=== PATIENT | female | born 1935 | race Caucasian/White ===

== ENCOUNTER → 2016-07-16 | Outpatient (CLI) | payer OTHER ==
[~2016-07-16] MED LIST: ACET-1311 PO; ASPEC81 PO; ATOR10TA88 PO; BISA10SU7 PR; DIPH25CA37 PO; FRS/40 PO; IMD/2 PO; MAGNSUS5 PO; METO25TA56 PO; NITR0.3D TD; NITR0.4S UT; POTA-327 PO; SODIENE PR
[2016-07-16 09:34] LABS: ESTIMATED AVERAGE GLUCOSE 123 mg/dl; HA1C FLAG Normal (Normal)
== END | disposition home or self-care (01) ==
LOC: C.LABUPHEI 08:31
PROVIDERS: ATTEND Family Medicine
DX: E11.9 Type 2 diabetes mellitus without complications (principal)

== ENCOUNTER → 2016-08-12 | Outpatient (CLI) | payer OTHER ==
[2016-08-12 09:05] LABS: BLOOD UREA NITROGEN 14 mg/dl (7-18); BUN/CREATININE RATIO 20.3 (10-20); CALCIUM 8.6 mg/dl (8.5-10.1); CARBON DIOXIDE 30 mmol/L (21-32); CHLORIDE 102 mmol/L (98-107); CREATININE 0.67 mg/dl (0.60-1.20); GLUCOSE 121 mg/dl (70-99); POTASSIUM 4.4 mmol/L (3.5-5.1); SODIUM 139 mmol/L (136-145)
[2016-08-12 09:14] LABS: HEMATOCRIT 32.9 % (37-47); MEAN CELL VOLUME 85.5 fL (80-100); MEAN CORPUSCULAR HEMOGLOBIN 29.9 pg (25-34); MEAN PLATELET VOLUME 10.2 fL (7.4-10.4); PLATELET COUNT 88 K/uL (130-400); RED BLOOD COUNT 3.85 M/uL (4.2-5.4); WHITE BLOOD COUNT 4.55 K/uL (4.8-10.8)
[2016-08-12 09:20] LABS: COMPLETE YES; EOS % 0.2 %; IG% 0.2 %; LARGE PLATELETS 1+; LYMPH % 19.6 %; LYMPH ABS # 0.89 K/uL (1.2-3.4); MONO % 9.2 %; NEUT % 70.8 %; PLT ESTIMATE DECREASED
--- NOTE | 2016-08-20 08:30 | CODING QUERY NO DIAGNOSIS ---
TREATMENT RENDERED WITHOUT A DIAGNOSIS : 1935 To promote full compliance with coding requirements relating to patient care, physician participation is requested in all cases of tile grader uncertainty. Please assist us with providing a diagnosis/symptom for the test(s) below: A diagnosis/symptom was not documented on your Order. A valid diagnosis/symptom is required to bill all insurances. Please remember that we are unable to code a diagnosis of rule out, probable, possible, questionable, or suspected. DOS: 08/12/16 Tests that require a diagnosis: * CBC WITH AUTO DIFFER DIAGNOSIS: * PARTIAL RENAL PROFILE DIAGNOSIS: Provider Signature: Date: Thank you Margarita Hercules Health Information Management Once completed, please kindly fax back to [phone] For questions please call [phone]
== END ==
LOC: C.LABUPHEI 08:42
PROVIDERS: ATTEND Family Medicine
DX: I10 Essential (primary) hypertension (principal); M62.81 Muscle weakness (generalized)

== ENCOUNTER → 2016-10-28 | Outpatient (CLI) | payer OTHER ==
[~2016-10-28] MED LIST changes: +ATOR10TA82 PO; -ATOR10TA88 PO
[2016-10-28 08:49] LABS: URINE APPEARANCE CLOUDY (CLEAR); URINE BILIRUBIN NEG (NEG); URINE COLOR YELLOW; URINE EPITHELIAL CELL AUTO 0-5 /lpf (0-5); URINE NITRITE NEG (NEG); URINE SPECIFIC GRAVITY 1.007 (1.000-1.030); UROBILINOGEN NEG (NEG)
[2016-10-28 08:58] LABS: MANUAL MICROSCOPIC REQUIRED? NO; REVIEW REQ? NO
== END ==
LOC: C.LABUPHEI 07:51
PROVIDERS: ATTEND Family Medicine
DX: R45.1 Restlessness and agitation (principal)

== ENCOUNTER → 2016-11-03 | Outpatient (CLI) | payer OTHER ==
[2016-11-03 10:40] LABS: URINE APPEARANCE CLOUDY (CLEAR); URINE BILIRUBIN NEG (NEG); URINE COLOR YELLOW; URINE EPITHELIAL CELL AUTO 0-5 /lpf (0-5); URINE NITRITE NEG (NEG); URINE PH 7.5 (4.5-7.5); URINE SPECIFIC GRAVITY 1.007 (1.000-1.030); UROBILINOGEN NEG (NEG); ZZURINE CULT IF INDIC CATH YES
[2016-11-03 10:54] LABS: MANUAL MICROSCOPIC REQUIRED? NO; REVIEW REQ? YES
--- NOTE | 2016-11-10 07:49 | CODING QUERY MEDICAL NECESSITY ---
CQSUPPORTING DIAGNOSIS NEEDED A supporting diagnosis is required for the test/procedure performed on this patient in order for us to be reimbursed by the patient's insurance. Please provide a supporting diagnosis for the following test/procedure listed below next to the test name along with your signature. *If there is no additional diagnosis for this patient that would support the following test/procedure please document that below next to the test/procedure. Test(s)/Procedure(s) that require a supporting diagnosis: DOS 11/03/16 URINE CULTURE QUERY RETURNED WITH DIAGNOSIS BUT NO SIGNATURE NEED DIAGNOSIS AND SIGNATURE THANKS Provider Signature: Date: Thank you Merari Lieberman Health Information Management Once completed, please kindly fax back to [phone] For questions please call [phone]
== END | disposition home or self-care (01) ==
LOC: C.LABUPHEI 09:01
PROVIDERS: ATTEND Family Medicine
DX: R45.1 Restlessness and agitation (principal); R41.82 Altered mental status, unspecified

== ENCOUNTER → 2016-11-10 | Outpatient (CLI) | payer OTHER ==
[2016-11-10 08:47] LABS: COMPLETE YES; HEMATOCRIT 36.7 % (37-47); IG% 0.5 %; LYMPH % 14.3 %; LYMPH ABS # 0.88 K/uL (1.2-3.4); MEAN CELL VOLUME 87.4 fL (80-100); MEAN CORPUSCULAR HEMOGLOBIN 30.2 pg (25-34); MEAN CORPUSCULAR HGB CONC 34.6 g/dl (32-36); MONO % 8.4 %; NEUT % 76.8 %; PLATELET COUNT 103 K/uL (130-400); WHITE BLOOD COUNT 6.17 K/uL (4.8-10.8)
[2016-11-10 08:56] LABS: ALT/SGPT 15 U/L (12-78); BLOOD UREA NITROGEN 16 mg/dl (7-18); BUN/CREATININE RATIO 21.8 (10-20); CARBON DIOXIDE 27 mmol/L (21-32); CHLORIDE 97 mmol/L (98-107); CREATININE 0.71 mg/dl (0.60-1.20); GLUCOSE 152 mg/dl (70-99); POTASSIUM 4.4 mmol/L (3.5-5.1); SODIUM 133 mmol/L (136-145)
[2016-11-10 08:59] LABS: ALKALINE PHOSPHATASE 105 U/L (45-117); AST/SGOT 12 U/L (15-37)
[2016-11-10 09:26] LABS: CALCIUM 9.3 mg/dl (8.5-10.1)
== END ==
LOC: C.LABUPHEI 08:16
PROVIDERS: ATTEND Family Medicine
DX: I10 Essential (primary) hypertension (principal); E55.9 Vitamin D deficiency, unspecified

== ENCOUNTER → 2017-01-14 | Outpatient (CLI) | payer OTHER ==
[~2017-01-14] MED LIST changes: -ATOR10TA82 PO; +ATOR10TA88 PO
[2017-01-14 12:18] LABS: ESTIMATED AVERAGE GLUCOSE 126 mg/dl; HA1C FLAG Normal (Normal)
== END ==
LOC: C.LABUPHEI 09:04
PROVIDERS: ATTEND Family Medicine
DX: E11.9 Type 2 diabetes mellitus without complications (principal)

== ENCOUNTER → 2017-02-22 | Outpatient (CLI) | payer OTHER ==
[2017-02-22 10:57] LABS: URINE APPEARANCE TURBID (CLEAR); URINE BILIRUBIN NEG (NEG); URINE COLOR YELLOW; URINE NITRITE POS (NEG); URINE PH 6.5 (4.5-7.5); URINE SPECIFIC GRAVITY 1.015 (1.000-1.030); UROBILINOGEN NEG (NEG)
[2017-02-22 11:05] LABS: MANUAL MICROSCOPIC REQUIRED? YES; REVIEW REQ? NO
[2017-02-22 11:23] LABS: URINE BACTERIA 4+ (NEG); URINE RBC 0-4 /hpf (0-4); URINE WBC >30 /hpf (0-5)
== END ==
LOC: C.LABUPHEI 09:49
PROVIDERS: ATTEND Nurse Practitioner Family
DX: R41.82 Altered mental status, unspecified (principal)

== ENCOUNTER → 2017-04-16 | Outpatient (CLI) | payer OTHER ==
[2017-04-16 06:50] LABS: CREATININE 0.72 mg/dl (0.60-1.20)
== END | disposition home or self-care (01) ==
LOC: C.LABUPHEI 15:37
PROVIDERS: ATTEND Nurse Practitioner Family
DX: I10 Essential (primary) hypertension (principal)

== ENCOUNTER → 2017-06-06 | Outpatient (CLI) | payer OTHER ==
[~2017-06-06] MED LIST changes: +ATOR10TA82 PO; -ATOR10TA88 PO
[2017-06-06 09:25] LABS: ESTIMATED AVERAGE GLUCOSE 157 mg/dl; HA1C FLAG Normal (Normal)
[2017-06-06 11:31] LABS: HEMATOCRIT 47.6 % (37-47); MEAN CELL VOLUME 96.9 fL (80-100); MEAN CORPUSCULAR HEMOGLOBIN 32.2 pg (25-34); MEAN CORPUSCULAR HGB CONC 33.2 g/dl (32-36); MEAN PLATELET VOLUME 12.3 fL (7.4-10.4); PLATELET COUNT 115 K/uL (130-400); RED BLOOD COUNT 4.91 M/uL (4.2-5.4); WHITE BLOOD COUNT 28.86 K/uL (4.8-10.8)
[2017-06-06 11:33] LABS: COMPLETE YES; LYMPH ABS # 0.26 K/uL (1.2-3.4); LYMPHOCYTE % 0.9 %; NEUTROPHILS % 95.6 %; PLT ESTIMATE DECREASED; VACUOLIZATION 1+
[2017-06-06 22:47] LABS: MANUAL MICROSCOPIC REQUIRED? NO; REVIEW REQ? NO; URINE APPEARANCE CLOUDY (CLEAR); URINE BILIRUBIN NEG (NEG); URINE COLOR DK YELLOW; URINE EPITHELIAL CELL AUTO 0-5 /lpf (0-5); URINE NITRITE POS (NEG); URINE SPECIFIC GRAVITY 1.027 (1.000-1.030); UROBILINOGEN NEG (NEG)
--- NOTE | 2017-06-10 12:42 | CODING QUERY MEDICAL NECESSITY ---
CQSUPPORTING DIAGNOSIS NEEDED A supporting diagnosis is required for the test/procedure performed on this patient in order for us to be reimbursed by the patient's insurance. Please provide a supporting diagnosis for the following test/procedure listed below next to the test name along with your signature. *If there is no additional diagnosis for this patient that would support the following test/procedure please document that below next to the test/procedure. Test(s)/Procedure(s) that require a supporting diagnosis: DOS 06/06/17 URINE CULTURE TESTS Provider Signature: Date: Thank you Merari Lieberman Health Information Management Once completed, please kindly fax back to [phone] For questions please call [phone]
== END ==
LOC: C.LABUPHEI 07:45
PROVIDERS: ATTEND Nurse Practitioner Family
DX: E11.9 Type 2 diabetes mellitus without complications (principal)

== ENCOUNTER → 2017-06-07 | Outpatient (CLI) | payer OTHER ==
[2017-06-07 18:59] LABS: BASO % 0.1 %; BASO ABS # 0.01 K/uL (0-0.2); HEMATOCRIT 47.4 % (37-47); IG% 0.4 %; LYMPH % 5.5 %; LYMPH ABS # 1.09 K/uL (1.2-3.4); MEAN CELL VOLUME 98.3 fL (80-100); MEAN PLATELET VOLUME 12.4 fL (7.4-10.4); MONO % 3.3 %; NEUT % 90.7 %; PLATELET COUNT 136 K/uL (130-400); RED BLOOD COUNT 4.82 M/uL (4.2-5.4); WHITE BLOOD COUNT 19.65 K/uL (4.8-10.8)
[2017-06-07 19:01] LABS: COMPLETE YES; MEAN CORPUSCULAR HGB CONC 32.5 g/dl (32-36)
[2017-06-07 19:32] LABS: BLOOD UREA NITROGEN 93 mg/dl (7-18); BUN/CREATININE RATIO 40.8 (10-20); CREATININE 2.27 mg/dl (0.60-1.20); GLUCOSE 346 mg/dl (70-99); POTASSIUM 3.6 mmol/L (3.5-5.1); SODIUM 163 mmol/L (136-145)
[2017-06-07 19:33] LABS: CALCIUM 9.4 mg/dl (8.5-10.1); CARBON DIOXIDE 27 mmol/L (21-32); CHLORIDE 126 mmol/L (98-107)
[2017-06-07 19:34] LABS: ALB/GLOB RATIO 0.7 (0.9-2); ALKALINE PHOSPHATASE 101 U/L (45-117); ALT/SGPT 40 U/L (12-78); AST/SGOT 15 U/L (15-37)
[2017-06-07 19:50] LABS: BETA-HYDROXYBUTYRATE 1.19 mg/dL (0.2-2.81)
== END ==
LOC: C.LABUPHEI 12:19
PROVIDERS: ATTEND Nurse Practitioner Family
DX: A41.89 Other specified sepsis (principal); D72.829 Elevated white blood cell count, unspecified

== ENCOUNTER → 2017-06-08 | Outpatient (CLI) | payer OTHER ==
[2017-06-08 13:17] LABS: BLOOD UREA NITROGEN 87 mg/dl (7-18); BUN/CREATININE RATIO 43.8 (10-20); CALCIUM 9.1 mg/dl (8.5-10.1); CARBON DIOXIDE 26 mmol/L (21-32); CHLORIDE 130 mmol/L (98-107); CREATININE 1.99 mg/dl (0.60-1.20); GLUCOSE 159 mg/dl (70-99); POTASSIUM 3.3 mmol/L (3.5-5.1); SODIUM 166 mmol/L (136-145)
[2017-06-08 13:26] LABS: HEMATOCRIT 43.4 % (37-47); MEAN CELL VOLUME 98.2 fL (80-100); MEAN CORPUSCULAR HEMOGLOBIN 31.2 pg (25-34); MEAN CORPUSCULAR HGB CONC 31.8 g/dl (32-36); MEAN PLATELET VOLUME 12.4 fL (7.4-10.4); PLATELET COUNT 108 K/uL (130-400); RED BLOOD COUNT 4.42 M/uL (4.2-5.4); WHITE BLOOD COUNT 17.08 K/uL (4.8-10.8)
[2017-06-08 13:28] LABS: BASO % 0.1 %; BASO ABS # 0.02 K/uL (0-0.2); COMPLETE YES; IG% 0.6 %; LYMPH % 6.5 %; LYMPH ABS # 1.11 K/uL (1.2-3.4); MONO % 3.7 %; NEUT % 89.1 %; PLT ESTIMATE DECREASED
--- NOTE | 2017-06-09 13:12 | CODING QUERY NO DIAGNOSIS ---
TREATMENT RENDERED WITHOUT A DIAGNOSIS To promote full compliance with coding requirements relating to patient care, physician participation is requested in all cases of cod clerk uncertainty. Please assist us with providing a diagnosis/symptom for the test(s) below: A diagnosis/symptom was not documented on your Order. A valid diagnosis/symptom is required to bill all insurances. Please remember that we are unable to code a diagnosis of rule out, probable, possible, questionable, or suspected. DATE OF SERVICE: 06/08/17 Tests that require a diagnosis: * CBC W/ AUTO DIFF DIAGNOSIS: * PARTIAL RENAL PROFILE DIAGNOSIS: Provider Signature: Date: Thank you Celeste Franco [facility] Information Management Once completed, please kindly fax back to [phone] For questions please call [phone]
== END ==
LOC: C.LABUPHEI 12:40
PROVIDERS: ATTEND Nurse Practitioner Family
DX: Z01.89 Encounter for other specified special examinations (principal)

== ENCOUNTER → 2017-06-09 | Outpatient (CLI) | payer OTHER ==
[2017-06-09 09:01] LABS: COMPLETE YES; EOS % 0.1 %; HEMATOCRIT 40.2 % (37-47); IG% 0.4 %; LYMPH % 7.1 %; LYMPH ABS # 0.74 K/uL (1.2-3.4); MEAN CORPUSCULAR HEMOGLOBIN 31.7 pg (25-34); MEAN CORPUSCULAR HGB CONC 32.3 g/dl (32-36); MEAN PLATELET VOLUME 12.4 fL (7.4-10.4); NEUT % 88.4 %; PLATELET COUNT 91 K/uL (130-400); PLT ESTIMATE DECREASED; WHITE BLOOD COUNT 10.39 K/uL (4.8-10.8)
[2017-06-09 09:10] LABS: BLOOD UREA NITROGEN 81 mg/dl (7-18); BUN/CREATININE RATIO 46.5 (10-20); CALCIUM 8.9 mg/dl (8.5-10.1); CARBON DIOXIDE 28 mmol/L (21-32); CHLORIDE 128 mmol/L (98-107); CREATININE 1.73 mg/dl (0.60-1.20); GLUCOSE 218 mg/dl (70-99); POTASSIUM 2.9 mmol/L (3.5-5.1); SODIUM 166 mmol/L (136-145)
== END | disposition home or self-care (01) ==
LOC: C.LABUPHEI 08:27
PROVIDERS: ATTEND Nurse Practitioner Family
DX: A41.9 Sepsis, unspecified organism (principal)

== ENCOUNTER → 2017-06-10 | Outpatient (CLI) | payer OTHER ==
[2017-06-10 19:39] LABS: BLOOD UREA NITROGEN 43 mg/dl (7-18); BUN/CREATININE RATIO 32.4 (10-20); CALCIUM 8.4 mg/dl (8.5-10.1); CARBON DIOXIDE 28 mmol/L (21-32); CHLORIDE 120 mmol/L (98-107); CREATININE 1.32 mg/dl (0.60-1.20); GLUCOSE 260 mg/dl (70-99); POTASSIUM 2.5 mmol/L (3.5-5.1)
[2017-06-10 20:15] LABS: SODIUM 155 mmol/L (136-145)
== END ==
LOC: C.LABUPHEI 17:27
PROVIDERS: ATTEND Nurse Practitioner Family
DX: L08.9 Local infection of the skin and subcutaneous tissue, unspecified (principal)

== ENCOUNTER → 2017-06-14 | Outpatient (CLI) | payer OTHER ==
[2017-06-14 09:10] LABS: HEMATOCRIT 33.7 % (37-47); MEAN CELL VOLUME 94.1 fL (80-100); MEAN CORPUSCULAR HEMOGLOBIN 30.7 pg (25-34); MEAN CORPUSCULAR HGB CONC 32.6 g/dl (32-36); MEAN PLATELET VOLUME 12.3 fL (7.4-10.4); PLATELET COUNT 71 K/uL (130-400); RED CELL DISTRIBUTION WIDTH CV 14.4 % (11.5-14.5); RED CELL DISTRIBUTION WIDTH SD 49.1 fL (36.4-46.3); WHITE BLOOD COUNT 11.55 K/uL (4.8-10.8)
[2017-06-14 09:17] LABS: BLOOD UREA NITROGEN 18 mg/dl (7-18); CALCIUM 8.1 mg/dl (8.5-10.1); CARBON DIOXIDE 24 mmol/L (21-32); GLUCOSE 127 mg/dl (70-99); POTASSIUM 3.3 mmol/L (3.5-5.1); SODIUM 160 mmol/L (136-145)
[2017-06-14 09:45] LABS: BASO % 0.1 %; BASO ABS # 0.01 K/uL (0-0.2); IG# 0.07 K/uL (0.00-0.02); LYMPH ABS # 0.69 K/uL (1.2-3.4); MONO % 3.4 %; MONO ABS # 0.39 K/uL (0.11-0.59); NEUT % 89.9 %; NEUT ABS # 10.39 K/uL (1.4-6.5)
--- NOTE | 2017-06-16 11:18 | CODING QUERY NO DIAGNOSIS ---
: 1935 TREATMENT RENDERED WITHOUT A DIAGNOSIS To promote full compliance with coding requirements relating to patient care, physician participation is requested in all cases of death surveys coder uncertainty. Please assist us with providing a diagnosis/symptom for the test(s) below: A diagnosis/symptom was not documented on your Order. A valid diagnosis/symptom is required to bill all insurances. Please remember that we are unable to code a diagnosis of rule out, probable, possible, questionable, or suspected. Tests that require a diagnosis: DOS: 06/14/17 * CBC WITH AUTO DIFFERENTIAL DIAGNOSIS: * PARTIAL RENAL PROFILE DIAGNOSIS: Provider Signature: Date: Thank you Dana Mahoney Health Information Management Once completed, please kindly fax back to [phone] For questions please call [phone]
== END ==
LOC: C.LABUPHEI 08:23
PROVIDERS: ATTEND Family Medicine
DX: Z01.89 Encounter for other specified special examinations (principal)

== ENCOUNTER → 2017-06-15 | Outpatient (CLI) | payer OTHER ==
[2017-06-15 09:16] LABS: HEMATOCRIT 31.3 % (37-47); MEAN CELL VOLUME 95.1 fL (80-100); MEAN CORPUSCULAR HEMOGLOBIN 31.3 pg (25-34); MEAN CORPUSCULAR HGB CONC 32.9 g/dl (32-36); RED BLOOD COUNT 3.29 M/uL (4.2-5.4); WHITE BLOOD COUNT 7.34 K/uL (4.8-10.8)
[2017-06-15 09:18] LABS: MEAN PLATELET VOLUME 11.9 fL (7.4-10.4); PLATELET COUNT 69 K/uL (130-400)
[2017-06-15 09:24] LABS: COMPLETE YES; LYMPH % 9.7 %; LYMPH ABS # 0.71 K/uL (1.2-3.4); NEUT % 85.3 %
[2017-06-15 09:42] LABS: BLOOD UREA NITROGEN 14 mg/dl (7-18); BUN/CREATININE RATIO 17.2 (10-20); CALCIUM 7.7 mg/dl (8.5-10.1); CARBON DIOXIDE 25 mmol/L (21-32); CHLORIDE 123 mmol/L (98-107); GLUCOSE 212 mg/dl (70-99); POTASSIUM 3.3 mmol/L (3.5-5.1); SODIUM 153 mmol/L (136-145)
== END ==
LOC: C.LABUPHEI 09:00
PROVIDERS: ATTEND Nurse Practitioner Family
DX: E78.5 Hyperlipidemia, unspecified (principal); I10 Essential (primary) hypertension

== ENCOUNTER → 2017-06-22 | Outpatient (CLI) | payer OTHER | LOC: C.LABUPHEI 07:54 | PROVIDERS: ATTEND Nurse Practitioner Family | DX: E87.0 Hyperosmolality and hypernatremia (principal) ==

== ENCOUNTER → 2017-07-14 | Outpatient (CLI) | payer OTHER | END | disposition home or self-care (01) | LOC: C.LABUPHEI 08:34 | PROVIDERS: ATTEND Nurse Practitioner Family | DX: I25.10 Atherosclerotic heart disease of native coronary artery without angina pectoris (principal) ==

== ENCOUNTER → 2017-07-19 | Outpatient (CLI) | payer OTHER ==
[2017-07-19 09:10] LABS: HEMOGLOBIN A1C 5.5 % (4.5-5.6)
== END ==
LOC: C.LABUPHEI 08:43
PROVIDERS: ATTEND Nurse Practitioner Family
DX: E11.9 Type 2 diabetes mellitus without complications (principal)

== ENCOUNTER → 2017-07-26 | Outpatient (CLI) | payer OTHER | LOC: C.LABUPHEI 08:03 | PROVIDERS: ATTEND Nurse Practitioner Family | DX: R45.1 Restlessness and agitation (principal) ==

== ENCOUNTER → 2017-08-17 | Outpatient (CLI) | payer OTHER | LOC: C.LABUPHEI 09:18 | PROVIDERS: ATTEND Nurse Practitioner Family | DX: E78.5 Hyperlipidemia, unspecified (principal) ==

== ENCOUNTER → 2017-10-21 | Outpatient (CLI) | payer OTHER ==
[2017-10-21 09:10] LABS: CREATININE 0.78 mg/dl (0.60-1.20)
== END ==
LOC: C.LABUPHEI 08:34
PROVIDERS: ATTEND Nurse Practitioner Family
DX: E11.9 Type 2 diabetes mellitus without complications (principal); I10 Essential (primary) hypertension

== ENCOUNTER → 2017-11-11 | Outpatient (CLI) | payer OTHER | LOC: C.LABUPHEI 08:47 | PROVIDERS: ATTEND Nurse Practitioner Family | DX: E55.9 Vitamin D deficiency, unspecified (principal) ==

== ENCOUNTER → 2017-11-23 | Outpatient (CLI) | payer OTHER ==
--- NOTE | 2017-11-25 11:22 | CODING QUERY NO DIAGNOSIS ---
TREATMENT RENDERED WITHOUT A DIAGNOSIS [birth year] To promote full compliance with coding requirements relating to patient care, physician participation is requested in all cases of medical billing coder uncertainty. Please assist us with providing a diagnosis/symptom for the test(s) below: A diagnosis/symptom was not documented on your Order. A valid diagnosis/symptom is required to bill all insurances. Please remember that we are unable to code a diagnosis of rule out, probable, possible, questionable, or suspected. DOS 11/23/17 Tests that require a diagnosis: * UA CLEAN CATCH DIAGNOSIS: * URINE CULTURE DIAGNOSIS: Provider Signature: Date: Thank you Anabella English Health Information Management Once completed, please kindly fax back to [phone] For questions please call [phone]
== END | disposition home or self-care (01) ==
LOC: C.LABUPHEI 08:23
PROVIDERS: ATTEND Nurse Practitioner Family
DX: N39.0 Urinary tract infection, site not specified (principal)

== ENCOUNTER → 2017-11-26 | Outpatient (CLI) | payer OTHER ==
[2017-11-26 08:44] LABS: HEMATOCRIT 32.2 % (37-47); HEMOGLOBIN 11.2 g/dL (12.0-16.0); MEAN CELL VOLUME 87.5 fL (80-100); MEAN CORPUSCULAR HEMOGLOBIN 30.4 pg (25-34); MEAN CORPUSCULAR HGB CONC 34.8 g/dl (32-36); MEAN PLATELET VOLUME 10.3 fL (7.4-10.4); PLATELET COUNT 88 K/uL (130-400); RED CELL DISTRIBUTION WIDTH CV 14.4 % (11.5-14.5); WHITE BLOOD COUNT 3.64 K/uL (4.8-10.8)
[2017-11-26 08:53] LABS: ALBUMIN 3.5 gm/dl (3.4-5.0); ALKALINE PHOSPHATASE 77 U/L (45-117); ALT/SGPT 15 U/L (12-78); AST/SGOT 16 U/L (15-37); BLOOD UREA NITROGEN 15 mg/dl (7-18); CALCIUM 8.6 mg/dl (8.5-10.1); CARBON DIOXIDE 28 mmol/L (21-32); CREATININE 0.63 mg/dl (0.60-1.20); GLUCOSE 106 mg/dl (70-99); SODIUM 137 mmol/L (136-145); TOTAL PROTEIN 6.7 gm/dl (6.4-8.2)
[2017-11-26 09:05] LABS: IG# 0.02 K/uL (0.00-0.02); LYMPH % 22.3 %; LYMPH ABS # 0.81 K/uL (1.2-3.4); MONO % 6.9 %; MONO ABS # 0.25 K/uL (0.11-0.59); NEUT % 70.3 %; NEUT ABS # 2.56 K/uL (1.4-6.5)
== END | disposition home or self-care (01) ==
LOC: C.LABUPHEI 09:16
PROVIDERS: ATTEND Nurse Practitioner Family
DX: I10 Essential (primary) hypertension (principal)

== ENCOUNTER 2019-06-07 08:32 | Inpatient (IN) ==
[2019-06-07] MEDS ORDERED: MoRPHine SULFATE 4 MG/ML 1 ML CARP\\VIAL IV STA (08:53)
[2019-06-07] MEDS ORDERED: SODIUM CHLORIDE 0.9% 500 ML IV SCH ×2 (09:00→12:13)
[2019-06-07 09:37] LABS: Alanine Aminotransferase 16 U/L (12-78); Albumin Level 3.4 gm/dl (3.4-5.0); Aspartate Aminotransferase 14 U/L (15-37); Blood Urea Nitrogen 18 mg/dl (7-18); Calcium 8.9 mg/dl (8.5-10.1); Carbon Dioxide 27 mmol/L (21-32); Chloride 102 mmol/L (98-107); Creatinine Clr Calc Pharmacy 54.4 ml/min; Est GFR (African American) 91.9; Est GFR (Non-African American) 79.3; Glucose 181 mg/dl (70-99); Potassium 4.1 mmol/L (3.5-5.1); Sodium 136 mmol/L (136-145)
[2019-06-07 09:41] LABS: Albumin Globulin Ratio 1.1 (0.9-2); Alkaline Phosphatase 80 U/L (45-117); Globulin 3.1 gm/dl (2.5-4.0); Total Protein 6.5 gm/dl (6.4-8.2); Troponin I < 0.015 ng/ml (0-0.045)
[2019-06-07 09:45] LABS: Hematocrit (blood only) 30.6 % (37-47); Hemoglobin 10.7 g/dL (12.0-16.0); Immature Granulocytes # (auto) 0.03 K/uL (0.00-0.02); Immature Granulocytes % (auto) 0.4 %; Lymphocytes # (auto) 0.47 K/uL (1.2-3.4); Lymphocytes % (auto) 5.7 %; Mean Corpuscular Hemoglobin 32.5 pg (25-34); Mean Platelet Volume 9.4 fL (7.4-10.4); Monocytes # (auto) 0.37 K/uL (0.11-0.59); Monocytes % (auto) 4.5 %; Neutrophils # (auto) 7.33 K/uL (1.4-6.5); Neutrophils % (auto) 89.4 %; Platelet Count 68 K/uL (130-400); RDW Coefficient of Variation 13.8 % (11.5-14.5); RDW Standard Deviation 46.8 fL (36.4-46.3); Red Blood Count 3.29 M/uL (4.2-5.4)
--- NOTE | 2019-06-07 09:47 | XRay Report ---
XR hip RT 2V w pelvis CLINICAL HISTORY: 83 years-old Female presenting with fall. TECHNIQUE: Frontal and crosstable lateral views of the right hip were obtained. COMPARISON: 01/28/2011. FINDINGS: There is evidence of lower extremity amputation at the level of the proximal femoral metaphysis this is evident on crosstable lateral view. Presumably this represents a left lower extremity. Subcapital right femoral neck fracture with nearly one shaft width lateral and proximal displacement. The right femoral head remains congruent in the acetabulum. Underlying osteopenia. Visualized portion of bony p roslyn intact. Atherosclerosis. IMPRESSION: 1. Displaced subcapital right femoral neck fracture in the setting of osteopenia. 2. 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 Electronically signed by: Chriss Belle M.D. 06/07/2019 9:46 AM
--- NOTE | 2019-06-07 09:48 | XRay Report ---
XR femur RT 2V routine CLINICAL HISTORY: 83 years-old Female presenting with r hip pain. TECHNIQUE: Frontal and lateral views of the right femur were obtained. COMPARISON: None. FINDINGS: Subcapital displaced right femoral neck fracture again noted in the setting of osteopenia. The knee j oint is grossly congruent. Degenerative changes noted at the knee with osteophytosis. No evidence of any joint effusion. No additional fracture in the femur or in the visualized portion of the lower leg . Extensive atherosclerosis. IMPRESSION: Subcapital right femoral neck fracture. No additional femoral fracture. Electronically signed by: Chriss Belle M.D. 06/07/2019 9:47 AM
--- NOTE | 2019-06-07 09:50 | XRay Report ---
XR chest 1V portable CLINICAL HISTORY: 83 years-old Female presenting with fall. TECHNIQUE: Portable supine AP view of the chest was obtained. COMPARISON: 04/18/2013. FINDINGS: Mediastinal surgical clip noted. Atherosclerosis of the aortic arch. Cardiac silhouette borderline en larged. Mildly coarsened lung markings. No focal opacity. No large effusion or pneumothorax. Degenera tive changes of the thoracic spine. Posttraumatic deformity of the right clavicle. Degenerative burrell es of the left glenohumeral joint. Presumed underlying osteopenia. Upper abdomen normal. IMPRESSION: 1. Borderline cardiomegaly. No other convincing evidence of acute cardiopulmonary disease. Electronically signed by: Chriss Belle M.D. 06/07/2019 9:48 AM
[2019-06-07 09:54] LABS: Appearance Urine Turbid (Clear); Bacteria Urine Automated 4+ (Negative); Bilirubin Urine Negative (Negative); Blood Urine 3+ (Negative); Color Urine Dark Yellow; Epithelial Cell Urine Auto 20-30 /lpf (0-5); Glucose Urine UA Negative (Negative); Ketones Urine 1+ (Negative); Leukocyte Esterase Urine 3+ (Negative); Nitrite Urine Positive (Negative); Protein Urine 2+ (Negative); Specific Gravity Urine 1.018 (1.000-1.030); Urobilinogen Urine Negative (Negative); WBC Urine Automated >30 /hpf (0-5)
--- NOTE | 2019-06-07 10:01 | CT Scan Report ---
CT head/brain wo con CLINICAL HISTORY: 83 years-old Female presenting with fall. TECHNIQUE: Multidetector CT imaging of the head was performed without the use of intravenous contrast . IV contrast: None. One or more dose lowering techniques were used consistent with the principles of ALARA (as low as reasonably achievable), including automatic exposure control, mA or kV adjustment t o individual patient size, and/or use of iterative reconstruction. COMPARISON: 12/09/2012. CT DOSE (mGy.cm): The estimated cumulative dose is 943.01 mGy.cm. FINDINGS: Print Line Supervisor topogram: Unremarkable. Proportional ventricular and sulcal prominence, likely age-related parenchymal volume loss. No hemorr jose angel. Periventricular and subcortical white matter hypoattenuation, nonspecific but likely indicative of chronic small vessel ischemic change. Multiple lacunar infarcts in the bilateral basal ganglia an d potentially the gilberto. No acute territorial infarct. No mass effect or midline shift. No extra-axial fluid collection. Trace fluid in left mastoid air cells. Calvarium intact. IMPRESSION: 1. Chronic small vessel ischemic change and multiple bilateral basal ganglia old lacunar infarcts. 2. No acute intracranial abnormality. Electronically signed by: Chriss Belle M.D. 06/07/2019 10:00 AM
--- NOTE | 2019-06-07 10:05 | CT Scan Report ---
CT cervical spine wo con CLINICAL HISTORY: 83 years-old Female presenting with fall. TECHNIQUE: Multidetector CT of the cervical spine was performed without the use of intravenous contra st. IV contrast: None. One or more dose lowering techniques were used consistent with the principles of ALARA (as low as reasonably achievable), including automatic exposure control, mA or kV adjustment to individual patient size, and/or use of iterative reconstruction. COMPARISON: 12/09/2012. CT DOSE (mGy.cm): The estimated cumulative dose is 943.01. FINDINGS: House Furnishings Supervisor topogram: Unremarkable. Slightly exaggerated normal cervical lordosis. Vertebral bodies maintain normal height and alignment mild multilevel intervertebral disc height loss. Disc osteophyte complexes noted to varying degrees a t several levels most notably at C6-7. Mild posterior spondylitic spurring at C6-7 and to a lesser ex tent at C5-6. Evaluation of the soft tissues of the spinal canal demonstrate pannus formation at the atlantodental degenerative changes. No additional effacement of the spinal canal is apparent. Uncover tebral hypertrophy and facet arthropathy result in varying degrees of osseous neural foraminal narrow ing greater on the right. No acute fracture or subluxation. Fluid in the left mastoid air cells. Ceru men in the left external auditory canal. Visualized portion of the skull base intact. Prominent pacch ionian granulations. Lung apices clear. Paraspinal soft tissues within normal limits. IMPRESSION: 1. No acute osseous injury of the cervical spine. 2. Multilevel degenerative changes. Electronically signed by: Chriss Belle M.D. 06/07/2019 10:04 AM
[2019-06-07 10:10] LABS: RBC Urine Automated >30 /hpf (0-4)
[2019-06-07] MEDS ORDERED: cefTRIAXone SODIUM 1,000 MG/50 ML BAG IV STA (10:11)
[2019-06-07 10:13] LABS: Cast Urine Automated 0 /lpf (0-5)
--- NOTE | 2019-06-07 10:22 | History & Physical Report ---
Date of Service June 07, 2019 Assessment & Plan (1) Closed fracture of right hip: Hip fracture S/P unwitnessed Fall Hip X ray:Displaced subcapital right femoral neck fracture in the setting of osteopenia. 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 No surgery/procedures as per patient's daughter--POA Admit in Med/surg Pain control Orthopedics consulted for possible splint bowel regimen to prevent constipation DVT Px: Heparin SQ Conservative management (2) Acute UTI: Acute UTI Started on Rocephin Urine culture pending Gentle IV fluids (3) Chronic ITP (idiopathic thrombocytopenia): No acute bleeding issues Monitor platelet count closely May need to discontinue heparin SQ if any bleeding issues or worsening thromb ocytopenia (4) Dementia: No acute issues monitor (5) Ambulatory dysfunction: Wheelchair-bound at baseline (6) Diabetes: Started on ISS, Lantus update Check A1C Monitor BGs No tight glycemic control given age, comorbidities (7) Paranoid schizophrenia in remission: Continue home medications Monitor for delirium Reorient frequently (8) Hypertension: BP Variable Pain could be contributing Monitor DVT Px: Heparin SQ May need to discontinue if thrombocytopenia worsens Code Status DNI/DNR: As per my discussion with patient's daughter- POA Daughter: Jalyn Hernandez: [phone]; [phone] Disposition May need rehab placement Case management consulted History of Present Illness Chief Complaint: Fall, right hip pain Primary Care Provider: Carlee Waterman Patient is an 83-year-old female with history of Alzheimer's dementia, paranoid schizophrenia, diabetes--insulin-dependent, hypertension, hyperlipidemia, CVA, chronic thrombocytopenia, depression and other problems presents with history of an unwitnessed fall from [facility]. Patient is a poor historian secondary to her mental condition and most of the history is obtained from the ER physician, staff from [facility] and the patient's daughter. Patient was noted to be lying on the floor on her back next to her bed and was complaining of right hip pain since the fall. No known history of head trauma, change in mental status, fever chills, chest pain, shortness of breath, dysuria, hematuria as per the staff. Right leg was noted to be shortened and internally rotated by the staff and was so sent to the ED for further evaluation. Patient seems to be oriented while in ED and complains of right hip pain. Discussed with patient's daughter in detail who currently requests no aggressive management including procedures/surgery given her comorbidities. Patient is wheelchair-bound at baseline as per the daughter. CT head showed no acute intracranial abnormality. Right hip x-ray showed displaced subcapital right femoral neck fracture. UA suggestive of possible urinary tract infection. Chronic thrombocytopenia with platelet count of 68,000 noted on labs. Allergies Allergy/AdvReac Type Severity Reaction Status Date / Time barium sulfate Allergy unknown Verified 06/07/19 10:23 benztropine Allergy unknown Verified 06/07/19 10:24 chlorpromazine Allergy unknown Verified 06/07/19 10:25 clozapine Allergy unknown Verified 06/07/19 10:25 diatrizoate meglumine Allergy Unknown Verified 06/07/19 10:27 diatrizoate sodium Allergy unknown Verified 06/07/19 10:25 gadodiamide Allergy unknown Verified 06/07/19 10:25 iodine Allergy unknown Verified 06/07/19 10:25 iodixanol Allergy unknown Verified 06/07/19 10:25 sulfamethoxazole Allergy Verified 06/07/19 10:27 [From Bactrim] trimethoprim [From Bactrim] Allergy Verified 06/07/19 10:27 Home Medications Home Medications Medication Instructions Recorded Confirmed Type Furosemide (Lasix) 40 mg PO DAILY #0 tab 12/09/12 History DIPHENHYDRAMINE HCL (BENADRYL) 25 mg PO Q8 PRN #0 04/18/13 History Ah Gel 1 applic TOPICAL DAILY 06/07/19 History Multiple Vitamin, Womens 1 tab PO DAILY 06/07/19 06/07/19 History acetaminophen 650 mg PO Q6H PRN 06/07/19 06/07/19 History bisacodyl 10 mg [place] UD PRN 06/07/19 06/07/19 History cholecalciferol (vitamin D3) 400 unit PO DAILY 06/07/19 06/07/19 History compound vehicle susp SF no.25 06/07/19 History insulin detemir U-100 [Levemir 10 unit SUBCUT DAILY 06/07/19 06/07/19 History U-100 Insulin] magnesium hydroxide [Milk of 30 ml PO UD PRN 06/07/19 06/07/19 History Magnesia] metoprolol tartrate 25 mg PO BID 06/07/19 06/07/19 History nitroglycerin 0.4 mg SUBLINGUAL UD PRN 06/07/19 06/07/19 History potassium chloride 15 meq/kg PO BID 06/07/19 06/07/19 History sodium phosphates [Fleet Enema] 118 ml [place] UD PRN 06/07/19 06/07/19 History whey protein isolate [Beneprotein] 1 ea PO DAILY 06/07/19 06/07/19 History Past Med/Surg History Medical History CVA (cerebral vascular accident) Family History Unknown No significant family history Social History Preferred Language: Guamanian Communication Ability: Impaired Communication Ability Comment: baseline dementia/garbled speech [employer] Employee Required: No Beliefs That Will Affect Care: None Current Living Situation: Custodial Current Living Situation Comment: from [facility] Other Information That Helps Us Care for You: No Feels Safe at Home: Yes Safety Concerns: Feels Safe At This Time Smoking Status: Unknown if ever smoked Hx Alcohol Use: No Hx Substance Use: No Review of Systems Review of Systems: All systems reviewed & are unremarkable except as noted in HPI & below Physical Exam Physical Exam: Physical Exam: Vitals signs as noted above General Appearance:Elderly, thin, no apparent distress Head: normocephalic, Atraumatic Eyes: normal inspection, EOMI Neck: supple, Trachea midline Respiratory/Chest: Normal breath sounds, CTA, No accessory muscle use Cardiovascular: S1, S2, No murmur Abdomen/GI:Soft, Non tender, Bowel sounds present Extremities/Musculoskelatal:normal inspection, Trace edema, right leg internally rotated, shortened Neurologic/Psych:AAOX2, grossly moves all extremities, complete neuro exam could not be performed. Skin: normal color, warm Results & Data Vital Signs (Past 12 Hours) Vital Signs Temp Pulse Resp BP Pulse Ox 06/07/19 09:10 93 06/07/19 08:39 36.6 C 60 16 126/47 L 94 Laboratory Results Short CBC 06/07/19 Range/Units 09:05 WBC 8.20 (4.8-10.8) K/uL Hgb 10.7 L (12.0-16.0) g/dL Hct 30.6 L (37-47) % Plt Count 68 L (130-400) K/uL BMP 06/07/19 09:05 Sodium 136 Potassium 4.1 Chloride 102 Carbon Dioxide 27 BUN 18 Creatinine 0.71 Glucose 181 H Calcium 8.9 Cardiac Enzymes 06/07/19 Range/Units 09:05 Troponin I < 0.015 (0-0.045) ng/ml Liver Function 06/07/19 Range/Units 09:05 Total Bilirubin 1.0 (0.2-1) mg/dl AST 14 L (15-37) U/L ALT 16 (12-78) U/L Alkaline Phosphatase 80 (45-117) U/L Albumin 3.4 (3.4-5.0) gm/dl Urine 06/07/19 Range/Units 09:40 Urine Color Dark Yellow Urine Appearance Turbid A (Clear) Urine pH 6.0 (4.5-7.5) Ur Specific [place] 1.018 (1.000-1.030) Urine Protein 2+ H (Negative) Urine Glucose (UA) Negative (Negative) Diagnostic Findings CT head:Chronic small vessel ischemic change and multiple bilateral basal ganglia old lacunar infarcts. No acute intracranial abnormality. Femur X ray:Subcapital right femoral neck fracture. No additional femoral fra cture. CXR:Borderline cardiomegaly. No other convincing evidence of acute cardiopulmonary disease. Neck CT:No acute osseous injury of the cervical spine. Multilevel degenerative changes. Hip X ray:Displaced subcapital right femoral neck fracture in the setting of osteopenia. 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 ECG Additional Comments: EKG: Sinus bradycardia, QTC 424. Nonspecific T wave changes (1) Closed fracture of right hip Encounter type: initial encounter Qualified Code(s): S72.001A - Fracture of unspecified part of neck of right femur, initial encounter for closed fracture
[2019-06-07] MEDS ORDERED: NITROGLYCERIN SL 0.4 MG/TAB TAB SL PRN (11:45)
[2019-06-07] MEDS ORDERED: BISACODYL 10 MG SUPP PR PRN (12:13)
[2019-06-07] MEDS ORDERED: NALOXONE HCL 0.4 MG/1 ML VIAL/CARP IV PRN (12:13)
[2019-06-07] MEDS ORDERED: ACETAMINOPHEN 325 MG TAB PO PRN (12:13)
[2019-06-07] MEDS ORDERED: MAGNESIUM HYDROXIDE SUSP 30 ML UDC PO PRN (12:13)
[2019-06-07] MEDS ORDERED: DEXTROSE 50% 50 ML SYRINGE IV PRN (12:13)
[2019-06-07] MEDS ORDERED: ONDANSETRON INJ 2 MG/ML 2 ML VIAL IV PRN (12:13)
[2019-06-07] MEDS ORDERED: GLUCAGON FOR INJ 1 MG VIAL SQ PRN (12:13)
[2019-06-07] MEDS ORDERED: POLYETHYLENE (MIRALAX) 17 GM PACK PO PRN (12:13)
[2019-06-07] MEDS ORDERED: GLUCOSE 40% GEL 15 GM TUBE PO PRN (12:13)
[2019-06-07] MEDS ORDERED: GLUCOSE 10 TABS/TUBE PO PRN (12:13)
[2019-06-07] MEDS ORDERED: CARBOHYDRATES FOR HYPOGLYCEMIA PO PRN (12:13)
--- NOTE | 2019-06-07 13:11 | Emergency Department Note ---
Entered by Caroline Berger acting as a scribe for History of Present Illness General Chief complaint: Fall Source: patient and EMS Mode of arrival: EMS Limitations: other (history of dementia) History of Present Illness Onset (ago): hour(s) greater than 10 (16) Radiation: non-radiation Pain Consistency: + now resolved Relieved By: + none Exacerbated By: + none Associated symptoms: + other (-neck pain, -abdominal pain, +right hip pain, - left leg or hip pain); no chest pain and no headaches Treatments prior to arrival: none The patient is an 83 year old female who presents to the ED with complaints of a fall. She was brought to the ED via EMS from the [facility], where she resides. EMS states she had a ground level unwitnessed fall around 1630 yesterday afternoon. The patient is complaining of right hip pain. She has a history of dementia and history is limited secondary to the dementia. She denies any headache, neck pain, chest pain or abdominal pain. She denies any left leg or hip pain. Home Medications Home Medications Medication Instructions Recorded Confirmed Type Furosemide (Lasix) 40 mg PO DAILY #0 tab 12/09/12 History DIPHENHYDRAMINE HCL (BENADRYL) 25 mg PO Q8 PRN #0 04/18/13 History Ah Gel 1 applic TOPICAL DAILY 06/07/19 History Multiple Vitamin, Womens 1 tab PO DAILY 06/07/19 06/07/19 History acetaminophen 650 mg PO Q6H PRN 06/07/19 06/07/19 History bisacodyl 10 mg [place] UD PRN 06/07/19 06/07/19 History cholecalciferol (vitamin D3) 400 unit PO DAILY 06/07/19 06/07/19 History compound vehicle susp SF no.25 06/07/19 History insulin detemir U-100 [Levemir 10 unit SUBCUT DAILY 06/07/19 06/07/19 History U-100 Insulin] magnesium hydroxide [Milk of 30 ml PO UD PRN 06/07/19 06/07/19 History Magnesia] metoprolol tartrate 25 mg PO BID 06/07/19 06/07/19 History nitroglycerin 0.4 mg SUBLINGUAL UD PRN 06/07/19 06/07/19 History potassium chloride 15 meq/kg PO BID 06/07/19 06/07/19 History sodium phosphates [Fleet Enema] 118 ml [place] UD PRN 06/07/19 06/07/19 History whey protein isolate [Beneprotein] 1 ea PO DAILY 06/07/19 06/07/19 History Allergies Allergy/AdvReac Type Severity Reaction Status Date / Time barium sulfate Allergy unknown Verified 06/07/19 10:23 benztropine Allergy unknown Verified 06/07/19 10:24 chlorpromazine Allergy unknown Verified 06/07/19 10:25 clozapine Allergy unknown Verified 06/07/19 10:25 diatrizoate meglumine Allergy Unknown Verified 06/07/19 10:27 diatrizoate sodium Allergy unknown Verified 06/07/19 10:25 gadodiamide Allergy unknown Verified 06/07/19 10:25 iodine Allergy unknown Verified 06/07/19 10:25 iodixanol Allergy unknown Verified 06/07/19 10:25 sulfamethoxazole Allergy Verified 06/07/19 10:27 [From Bactrim] trimethoprim [From Bactrim] Allergy Verified 06/07/19 10:27 Past Med/Surg History Social History Preferred Language: Irish Communication Ability: Impaired Communication Ability Comment: baseline dementia/garbled speech Explosive Operator Required: No Beliefs That Will Affect Care: None Current Living Situation: Assisted Current Living Situation Comment: from [facility] Other Information That Helps Us Care for You: No Feels Safe at Home: Yes Safety Concerns: Feels Safe At This Time Smoking Status: Unknown if ever smoked Hx Alcohol Use: No Hx Substance Use: No Review of Systems See HPI for pertinent positives & negatives. Unobtainable due to cognitive status (ROS is limited secondary to the patients history of dementia) Physical Exam Vital Signs Vital Signs - 24 hr 06/07/19 08:39 06/07/19 09:10 06/07/19 10:26 Temperature 36.6 C Temperature Source Oral Pulse Rate 60 Pulse Rate [Apical] 70 Respiratory Rate 16 18 Blood Pressure 126/47 L Blood Pressure [Left Arm] 168/74 H Blood Pressure Mean 73 Blood Pressure Mean [Left Arm] 105 Pulse Oximetry 94 93 94 Oxygen Delivery Method Room Air Room Air Room Air Sepsis Recent Fever Within 48 Hours No Sepsis New/Unexplained Change in Mental Status No Sepsis Action Taken by Nursing No Action Required GENERAL: Patient is laying on left side with right hip flexed 30 degrees, no acute distress, holding babydoll/michael bear in both arms HEAD: normal cephalic, abrasion to left upper mid-lip EYE EXAM: normal conjunctiva, PERRL and EOM's grossly intact OROPHARYNX: no exudate, no erythema, lips, buccal mucosa, and tongue normal and mucous membranes are moist EARS: TMs clear b/l NECK: supple, no nuchal rigidity, no adenopathy, non-tender CHEST: stable to compression anteriorly and posteriorly LUNGS: clear to auscultation. Normal chest wall mechanics HEART: no murmurs, S1 normal and S2 normal ABDOMEN: abdomen soft, non-tender, normo-active bowel sounds, no masses, no rebound or guarding. PELVIS: stable to compression anteriorly and posteriorly BACK: Back is symmetrical on inspection and there is no deformity, no midline tenderness, no CVA tenderness. UPPER EXTREMITIES: full active and passive range of motion of all joints without tenderness to palpation LOWER EXTREMITIES: acute reproducible tenderness over right proximal hip and femur, no tenderness throughout right knee, mckinnon or ankle. No pain with ROM of left hip, no pain with palpation of left femur, hip, mckinnon or ankle, DP 2/4. NEURO EXAM: Patient is oriented to person, place but not year, following commands, no focal deficits. Course Course ED COURSE: Vital signs were reviewed and showed normal vital signs The patients medical record was reviewed The above diagnostic studies were performed and reviewed. ED treatments and interventions as stated above. 0847: The patient was evaluated in room B6. A complete history and physical examination was performed. 0930: I attempted to call the patients daughter but was unsuccessful. 0943: I spoke with the patients daughter. She is up to date on the patients condition and is agreeable with the plan. 1015: Upon reevaluation, the patient is resting comfortably. She will be further evaluated. 1016: I discussed the patients case [facility] The patient will be further evaluated. Based on the patients age, coexisting illnesses, exam and lab findings the decision to treat as an inpatient was made. The patient remained stable while under my care. The patient will be evaluated for further management. Administered Medications Sodium Chloride (Nss) 500 mls @ 80 mls/hr IV .Q6H15M JUNO Stop: 06/07/19 18:27 Last Admin: 06/07/19 12:58 Dose: 80 mls/hr Documented by: [id number] Discontinued Medications Sodium Chloride (Nss) 500 mls @ 999 mls/hr IV .Q31M JUNO Stop: 06/07/19 09:30 Last Infusion: 06/07/19 10:27 Dose: 0 mls/hr Documented by: [id number] Admin: 06/07/19 10:02 Dose: 999 mls/hr Documented by: [id number] Ceftriaxone Sodium (Rocephin) 1,000 mg in 50 mls @ 100 mls/hr IV NOW STA Stop: 06/07/19 10:40 Last Infusion: 06/07/19 11:21 Dose: 0 mls/hr Documented by: [id number] Admin: 06/07/19 10:51 Dose: 100 mls/hr Documented by: [id number] Morphine Sulfate (Morphine Sulfate) 2 mg IV NOW STA Stop: 06/07/19 08:54 Last Admin: 06/07/19 09:06 Dose: 2 mg Documented by: [id number] Medical Decision Making Differential Diagnosis Differential diagnoses include major intracranial, cervical, spinal, thoracic, abdominal, pelvic and neurologic injury. Fracture, contusion, sprain, strain, la ceration, abrasions included as well. Medical Records Attestation: I reviewed the patient's medical records. Home Medications Current Medication List: was personally reviewed by me Laboratory Data Attestation: I reviewed the patient's lab results. Result diagrams: 06/07/19 09:05 06/07/19 09:05 Lab Results 06/07/19 06/07/19 06/07/19 Range/Units 09:05 09:05 09:40 WBC 8.20 (4.8-10.8) K/uL RBC 3.29 L (4.2-5.4) M/uL Hgb 10.7 L (12.0-16.0) g/dL Hct 30.6 L (37-47) % MCV 93.0 (80-100) fL MCH 32.5 (25-34) pg MCHC 35.0 (32-36) g/dL RDW Std Deviation 46.8 H (36.4-46.3) fL RDW Coeff of [place] 13.8 (11.5-14.5) % Plt Count 68 L (130-400) K/uL MPV 9.4 (7.4-10.4) fL Immature Gran % (Auto) 0.4 % Neut % (Auto) 89.4 % Lymph % (Auto) 5.7 % [place] % (Auto) 4.5 % Eos % (Auto) 0.0 % Baso % (Auto) 0.0 % Immature Gran # (Auto) 0.03 H (0.00-0.02) K/uL Neut # (Auto) 7.33 H (1.4-6.5) K/uL Lymph # (Auto) 0.47 L (1.2-3.4) K/uL [place] # (Auto) 0.37 (0.11-0.59) K/uL Eos # (Auto) 0.00 (0-0.5) K/uL Baso # (Auto) 0.00 (0-0.2) K/uL Sodium 136 (136-145) mmol/L Potassium 4.1 (3.5-5.1) mmol/L Chloride 102 (98-107) mmol/L Carbon Dioxide 27 (21-32) mmol/L Anion Gap 7.0 (3-11) BUN 18 (7-18) mg/dl Creatinine 0.71 (0.6-1.2) mg/dl Est Cr Clr Drug Dosing 54.4 ml/min Est GFR ( Amer) 91.9 Est GFR (Non-Af Amer) 79.3 BUN/Creatinine Ratio 26.0 H (10-20) Glucose 181 H (70-99) mg/dl Calcium 8.9 (8.5-10.1) mg/dl Total Bilirubin 1.0 (0.2-1) mg/dl AST 14 L (15-37) U/L ALT 16 (12-78) U/L Alkaline Phosphatase 80 (45-117) U/L Troponin I < 0.015 (0-0.045) ng/ml Total Protein 6.5 (6.4-8.2) gm/dl Albumin 3.4 (3.4-5.0) gm/dl Globulin 3.1 (2.5-4.0) gm/dl Albumin/Globulin Ratio 1.1 (0.9-2) Urine Color Dark Yellow Urine Appearance Turbid A (Clear) Urine pH 6.0 (4.5-7.5) Ur Specific [place] 1.018 (1.000-1.030) Urine Protein 2+ H (Negative) Urine Glucose (UA) Negative (Negative) Urine Ketones 1+ H (Negative) Urine Blood 3+ H (Negative) Urine Nitrite Positive A (Negative) Urine Bilirubin Negative (Negative) Urine Urobilinogen Negative (Negative) Ur Leukocyte Esterase 3+ H (Negative) Urine WBC (Auto) >30 H (0-5) /hpf Urine RBC (Auto) >30 H (0-4) /hpf U Hyaline Cast (Auto) 0 (0-5) /lpf U Epithel Cells (Auto) 20-30 H (0-5) /lpf Urine Bacteria (Auto) 4+ H (Negative) Urine Yeast Not Reportable Imaging Data Radiologist's Impression: Radiology results as stated below per my review and the radiologist's interpretation: CT cervical spine wo con CLINICAL HISTORY: 83 years-old Female presenting with fall. TECHNIQUE: Multidetector CT of the cervical spine was performed without the use of intravenous contrast. IV contrast: None. One or more dose lowering techniques were used consistent with the principles of ALARA (as low as reasonably achievable), including automatic exposure control, mA or kV adjustment to individual patient size, and/or use of iterative reconstruction. COMPARISON: 12/09/2012. CT DOSE (mGy.cm): The estimated cumulative dose is 943.01. FINDINGS: Seater Grinder topogram: Unremarkable. Slightly exaggerated normal cervical lordosis. Vertebral bodies maintain normal height and alignment mild multilevel intervertebral disc height loss. Disc osteophyte complexes noted to varying degrees at several levels most notably at C6-7. Mild posterior spondylitic spurring at C6-7 and to a lesser extent at C5- 6. Evaluation of the soft tissues of the spinal canal demonstrate pannus formation at the atlantodental degenerative changes. No additional effacement of the spinal canal is apparent. Uncovertebral hypertrophy and facet arthropathy result in varying degrees of osseous neural foraminal narrowing greater on the right. No acute fracture or subluxation. Fluid in the left mastoid air cells. Cerumen in the left external auditory canal. Visualized portion of the skull base intact. Prominent pacchionian granulations. Lung apices clear. Paraspinal soft tissues within normal limits. IMPRESSION: 1. No acute osseous injury of the cervical spine. 2. Multilevel degenerative changes. Electronically signed by: Chriss Belle M.D. 06/07/2019 10:04 AM XR chest 1V portable CLINICAL HISTORY: 83 years-old Female presenting with fall. TECHNIQUE: Portable supine AP view of the chest was obtained. COMPARISON: 04/18/2013. FINDINGS: Mediastinal surgical clip noted. Atherosclerosis of the aortic arch. Cardiac silhouette borderline enlarged. Mildly coarsened lung markings. No focal opacity. No large effusion or pneumothorax. Degenerative changes of the thoracic spine. Posttraumatic deformity of the right clavicle. Degenerative changes of the left glenohumeral joint. Presumed underlying osteopenia. Upper abdomen normal. IMPRESSION: 1. Borderline cardiomegaly. No other convincing evidence of acute cardiopulmo nary disease. Electronically signed by: Chriss Belle M.D. 06/07/2019 9:48 AM XR femur RT 2V routine CLINICAL HISTORY: 83 years-old Female presenting with r hip pain. TECHNIQUE: Frontal and lateral views of the right femur were obtained. COMPARISON: None. FINDINGS: Subcapital displaced right femoral neck fracture again noted in the setting of osteopenia. The knee joint is grossly congruent. Degenerative changes noted at the knee with osteophytosis. No evidence of any joint effusion. No additional fracture in the femur or in the visualized portion of the lower leg. Extensive atherosclerosis. IMPRESSION: Subcapital right femoral neck fracture. No additional femoral fracture. Electronically signed by: Chriss Belle M.D. 06/07/2019 9:[address] head/brain wo con CLINICAL HISTORY: 83 years-old Female presenting with fall. TECHNIQUE: Multidetector CT imaging of the head was performed without the use of intravenous contrast. IV contrast: None. One or more dose lowering techniques were used consistent with the principles of ALARA (as low as reasonably achievable), including automatic exposure control, mA or kV adjustment to individual patient size, and/or use of iterative reconstruction. COMPARISON: 12/09/2012. CT DOSE (mGy.cm): The estimated cumulative dose is 943.01 mGy.cm. FINDINGS: Seater Grinder topogram: Unremarkable. Proportional ventricular and sulcal prominence, likely age-related parenchymal volume loss. No hemorrhage. Periventricular and subcortical white matter h ypoattenuation, nonspecific but likely indicative of chronic small vessel ischemic change. Multiple lacunar infarcts in the bilateral basal ganglia and potentially the gilberto. No acute territorial infarct. No mass effect or midline shift. No extra-axial fluid collection. Trace fluid in left mastoid air cells. Calvarium intact. IMPRESSION: 1. Chronic small vessel ischemic change and multiple bilateral basal ganglia old lacunar infarcts. 2. No acute intracranial abnormality. Electronically signed by: Chriss Belle M.D. 06/07/2019 10:00 AM XR hip RT 2V w pelvis CLINICAL HISTORY: 83 years-old Female presenting with fall. TECHNIQUE: Frontal and crosstable lateral views of the right hip were obtained. COMPARISON: 01/28/2011. FINDINGS: There is evidence of lower extremity amputation at the level of the proximal femoral metaphysis this is evident on crosstable lateral view. Presumably this represents a left lower extremity. Subcapital right femoral neck fracture with nearly one shaft width lateral and proximal displacement. The right femoral head remains congruent in the acetabulum. Underlying osteopenia. Visualized portion of bony pelvis intact. Atherosclerosis. IMPRESSION: 1. Displaced subcapital right femoral neck fracture in the setting of osteopenia. 2. 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 Electronically signed by: Chriss Belle M.D. 06/07/2019 9:46 AM ECG Data Attestation: I personally reviewed and interpreted this ECG as follows: Indication: + other (fall) Rate (beats per minute): 57 Rhythm: + sinus bradycardia ECG Intervals/blocks: + Normal QT ECG Erwin: + Left axis deviation ECG Findings: no PVCs Blood Pressure Blood Pressure Findings: Normal blood pressure Blood Pressure Disposition: did not require urgent referral MDM Narrative Patient is an 83-year-old female with a past medical history of dementia and hypertension who presents to the ER following a fall which occurred last night around 4 PM. It was unwitnessed. IV was established blood was obtained and showed that she was hypertensive. Labs show no significant leukocytosis but a mild anemia 10.7. BMP had a slightly elevated glucose at 180, bilirubin troponin was unremarkable. UA did have nitrates, hematuria, leukocytes, white cells and epithelial cells. Did give a dose of Rocephin. CT of the head and cervical spine was unremarkable. Chest x-ray along with x-rays of the pelvis femur show right proximal hip fracture. Discussed with taco of associate chemistjing Gunderson whose number is [phone]. She notes that they likely would not like surgery but would like her to come in for pain control observation and further discussion. Patient was updated at bedside. Patient was discussed with the hospitalist for observation. Impression & Plan Closed fracture of right hip, Acute UTI, Weakness, Ambulatory dysfunction Discharge Plan Visit Data *Final* Discharge Date/Time: 06/07/19 11:38 Chief Complaint: Fall ED Provider: Meir Baumann Discharge Problem: Closed fracture of right hip, Acute UTI, Weakness, Ambulatory dysfunction Patient Disposition: Admitted As Inpatient Discharge Instructions Interventions: ED Discharge Assessment Last Done: 06/07/19 11:38 Discharge Problem: Closed fracture of right hip Qualifiers: Encounter type: initial encounter Qualified Code(s): S72.001A - Fracture of uns pecified part of neck of right femur, initial encounter for closed fracture The scribe's documentation has been prepared under my direction and personally reviewed by me in its entirety. I confirm that the note above accurately reflects all work, treatment, procedures, and medical decision making performed by me.
[2019-06-07] MEDS: INSULIN ASPART 100 UNITS/ML 3 ML PEN SC SCH ×3 (13:13→20:53)
[2019-06-07] MEDS: FUROSEMIDE 40 MG TAB PO SCH (13:15)
[2019-06-07] MEDS: MoRPHine SULFATE 2 MG/ML CARP IV PRN (15:14)
--- NOTE | 2019-06-07 16:43 | Consultation Report ---
DATE OF CONSULTATION: 06/07/2019 ORTHOPEDIC SURGERY CONSULTATION Noreen is seen at the bedside today. She is admitted to the hospitalist service for special attention to right hip fracture. The patient is nonverbal and no significant history is available other than an unwitnessed fall. PAST MEDICAL HISTORY: Includes; 1. Acute urinary tract infection. 2. Chronic ITP. 3. Dementia, nonambulatory. 4. Insulin-dependent diabetes. 5. Paranoid schizophrenia. 6. Hypertension. MEDICATIONS: Include Lasix, Benadryl, multivitamins, Colace, insulin, magnesium, metoprolol, Fleets enema. PHYSICAL EXAMINATION: Right lower extremity examination of the right lower extremity is shortened and internally rotated. She has pain with log roll of the hip. She has no open injuries. She has tenderness in the hip region. She is nonverbal and does not follow commands. Calves are nontender and did not show significant swelling. Left lower extremity examination: No edema, no pain with internal rotation or external rotation of the hip. RADIOGRAPHIC EVALUATION: AP pelvis shows displaced subcapital femoral neck fracture. No additional fractures are seen. Fracture is age indeterminate and arthritic changes are seen in bilateral hips. ASSESSMENT: An 83-year-old female with: 1. Right subcapital displaced femoral neck fracture. 2. Dementia. PLAN: As per hospitalist note. They state that the patient's family requests no additional intervention such as surgical treatment. If this is indeed the case, recommendation would be simply for a soft pillow as this is typically more comfortable than a splint or Hunter's traction. We will sign off. If you have any further questions or concerns, feel free to contact us.
[2019-06-07] MEDS: OXYCODONE HCL IR 5 MG TAB (IMMEDIATE RELEASE) PO PRN (17:39)
[2019-06-07] MEDS: METOPROLOL TARTRATE 25 MG TAB PO SCH (20:47)
[2019-06-07] MEDS: DOCUSATE SODIUM/SENNA 50/8.6MG TAB PO SCH (20:47)
[2019-06-07] MEDS: HEPARIN SOD 5,000 UNIT/0.5 ML VIAL SQ SCH (20:52)
[2019-06-07] MEDS: INSULIN GLARGINE SOLOSTAR 100 UNITS/ML 3 ML PEN SC SCH (20:52)
[2019-06-08] MEDS: MoRPHine SULFATE 2 MG/ML CARP IV PRN (00:01)
[2019-06-08 06:24] LABS: Hematocrit (blood only) 29.9 % (37-47); Hemoglobin 10.4 g/dL (12.0-16.0); Mean Corpuscular Hemoglobin 32.4 pg (25-34); Mean Corpuscular Hgb Conc 34.8 g/dL (32-36); Mean Corpuscular Volume 93.1 fL (80-100); RDW Coefficient of Variation 13.8 % (11.5-14.5); RDW Standard Deviation 47.3 fL (36.4-46.3); Red Blood Count 3.21 M/uL (4.2-5.4); White Blood Count 6.99 K/uL (4.8-10.8)
[2019-06-08 06:28] LABS: Mean Platelet Volume 9.8 fL (7.4-10.4); Platelet Count 71 K/uL (130-400)
[2019-06-08 06:53] LABS: BUN Creatinine Ratio 25.5 (10-20); Calcium 8.9 mg/dl (8.5-10.1); Creatinine Clr Calc Pharmacy 60.3 ml/min; Est GFR (African American) 96.3; Est GFR (Non-African American) 83.1; Magnesium 1.7 mg/dl (1.8-2.4); Potassium 3.5 mmol/L (3.5-5.1)
[2019-06-08 07:22] LABS: Estimated Average Glucose 103 mg/dl; Hemoglobin A1C 5.2 % (4.5-5.6)
[2019-06-08] MEDS: FUROSEMIDE 40 MG TAB PO SCH (08:08)
[2019-06-08] MEDS: CHOLECALCIFEROL (VITAMIN D) 400 UNITS TABLET PO SCH (08:08)
[2019-06-08] MEDS: METOPROLOL TARTRATE 25 MG TAB PO SCH ×2 (08:08→21:59)
[2019-06-08] MEDS: HEPARIN SOD 5,000 UNIT/0.5 ML VIAL SQ SCH ×2 (08:41→21:59)
[2019-06-08] MEDS: INSULIN GLARGINE SOLOSTAR 100 UNITS/ML 3 ML PEN SC SCH ×2 (08:41→21:51)
[2019-06-08] MEDS: INSULIN ASPART 100 UNITS/ML 3 ML PEN SC SCH ×4 (08:43→21:52)
[2019-06-08] MEDS: cefTRIAXone SODIUM 1,000 MG/50 ML BAG IV SCH (09:06)
--- NOTE | 2019-06-08 17:35 | Hospitalist Progress Note ---
Date of Service June 08, 2019 Assessment & Plan (1) Closed fracture of right hip: Hip fracture S/P unwitnessed Fall Hip X ray:Displaced subcapital right femoral neck fracture in the setting of osteopenia. 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 Pain control Spoke with daughter on the phone who stated that she may be reconsidering her decision about surgical options. She stated she will like to speak the orthopedic surgeon. Spoke with Dr Horton and informed him about this. He will review and speak with her (2) Acute UTI: E. coli on urine culture Continue Rocephin Follow up sensitivities (3) Chronic ITP (idiopathic thrombocytopenia): No acute bleeding issues Monitor platelet count closely Plt is 71 today May need to discontinue heparin SQ if any bleeding issues or worsening thrombocytopenia (4) Dementia: No acute issues Monitor (5) Ambulatory dysfunction: Wheelchair-bound at baseline (6) Diabetes: Started on ISS, Lantus A1c 5.2 Monitor BGs. Wasin 150-200 so far No tight glycemic control given age, comorbidities May need to relax insulin regimen on discharge (7) Paranoid schizophrenia in remission: Continue home medications Monitor for delirium Reorient frequently (8) Hypertension: Pain control Monitor DVT Px: Heparin SQ Code Status DNI/DNR: As per my discussion with patient's daughter- POA Daughter: Jalyn Hernandez: [phone]; [phone] Disposition May need rehab placement Case management consulted Subjective Patient seen and examined Unable to properly review systems due to dementia and difficulty understanding speech Review of Systems Review of Systems: Unobtainable due to cognitive status Physical Exam Physical Exam: General: Elderly, thin, awake, alert, follows simple commands Eyes: PERRL, conjunctivae normal, EOM intact bilaterally Neck: Normal visual inspection, no tracheal deviation, no swelling noted Respiratory: Normal respiratory effort, no respiratory distress, lungs clear to auscultation, no crackles and no wheezes Cardiovascular: Pulse is RRR. s1s2 no pedal edema Gastrointestinal (Abdomen): Abdomen is not distended, soft, non-tender to palpation, no guarding, no palpable hepatosplenomegaly, normal bowel sounds Musculoskeletal: No cyanosis or clubbing, right leg shortened Neurologic: Awake and alert follows simple command. limited exam due to mental status and speech Results & Data Vital Signs (Past 12 Hours) Vital Signs Temp Pulse Resp BP Pulse Ox 06/08/19 15:10 36.8 C 90 16 164/77 H 92 06/08/19 08:09 36.9 C 105 H 19 164/77 H 90 Laboratory Results Abnormal lab results 06/07/19 06/08/19 06/08/19 Range/Units 20:16 05:40 05:40 RBC 3.21 L (4.2-5.4) M/uL Hgb 10.4 L (12.0-16.0) g/dL Hct 29.9 L (37-47) % RDW Std Deviation 47.3 H (36.4-46.3) fL Plt Count 71 L (130-400) K/uL BUN/Creatinine Ratio 25.5 H (10-20) Glucose 136 H (70-99) mg/dl POC Glucose 213 H (70-99) Magnesium 1.7 L (1.8-2.4) mg/dl 06/08/19 06/08/19 Range/Units 08:12 12:05 RBC (4.2-5.4) M/uL Hgb (12.0-16.0) g/dL Hct (37-47) % RDW Std Deviation (36.4-46.3) fL Plt Count (130-400) K/uL BUN/Creatinine Ratio (10-20) Glucose (70-99) mg/dl POC Glucose 187 H 178 H (70-99) Magnesium (1.8-2.4) mg/dl (1) Closed fracture of right hip Encounter type: initial encounter Qualified Code(s): S72.001A - Fracture of unspecified part of neck of right femur, initial encounter for closed fracture
[2019-06-08] MEDS: OXYCODONE HCL IR 5 MG TAB (IMMEDIATE RELEASE) PO PRN ×2 (18:52→21:59)
[2019-06-08] MEDS: DOCUSATE SODIUM/SENNA 50/8.6MG TAB PO SCH (22:06)
[2019-06-09 05:55] LABS: BUN Creatinine Ratio 25.2 (10-20); Calcium 8.9 mg/dl (8.5-10.1); Creatinine Clr Calc Pharmacy 58.5 ml/min; Est GFR (African American) 95.3; Est GFR (Non-African American) 82.3; Potassium 3.3 mmol/L (3.5-5.1)
[2019-06-09] MEDS ORDERED: POTASSIUM CHLORIDE PWD 20 MEQ PACK PO STA (08:51)
[2019-06-09] MEDS: CHOLECALCIFEROL (VITAMIN D) 400 UNITS TABLET PO SCH (09:03)
[2019-06-09] MEDS: FUROSEMIDE 40 MG TAB PO SCH (09:03)
[2019-06-09] MEDS: METOPROLOL TARTRATE 25 MG TAB PO SCH ×2 (09:03→20:22)
[2019-06-09] MEDS: HEPARIN SOD 5,000 UNIT/0.5 ML VIAL SQ SCH ×2 (09:04→20:32)
[2019-06-09] MEDS: INSULIN ASPART 100 UNITS/ML 3 ML PEN SC SCH ×5 (09:07→23:29)
[2019-06-09] MEDS: INSULIN GLARGINE SOLOSTAR 100 UNITS/ML 3 ML PEN SC SCH ×2 (09:08→20:32)
--- NOTE | 2019-06-09 09:59 | Orthopedic Consultation ---
Date of Consultation June 09, 2019 Assessment & Plan (1) Displaced fracture of right femoral neck: I had a lengthy discussion today with the patient and her daughter and guardian, Jalyn Hernandez ([phone]) regarding the injury and potential treatment. When I initially spoke to the patient this morning, she stated that she did not want any surgery. However, after I advised her that she would be unable to ambulate or mobilize comfortably without surgery, she then stated "do the surgery". The patient denies any significant pain at baseline when she is just resting there in bed, but she does obviously have pain with any motion of the right leg. I discussed all this at length with the daughter/guardian. We discussed the surgery in great detail, as well as potential risks. After thorough discussion, she elected to proceed with surgical intervention for this hip fracture. Risks, benefits, and alternatives of surgery were explained in detail. The surgical procedure, as well as postoperative recovery and rehabilitation, was also explained in detail. Risks include bleeding; infection; damage to surrounding structures such as nerves, blood vessels, and tendons that run in the area; persistent pain or stiffness; hardware failure; dislocation; leg length discrepancy; blood clots; or need for further surgery. She understands all of this and wishes to proceed with surgery. Informed consent was obtained. Present on Admission?: Yes History of Present Illness Reason for Consultation: Re-consult for right hip fracture Requesting Physician: Dr. Barreto Attending Physician: Nidia Barreto MD History of Present Illness Ms. Wright is an 83-year old female with Alzheimer's dementia and history of paranoid schizophrenia with speech difficulty with right hip pain after an unwitnessed fall at the [facility]. Most of his history is obtained from the medical records as well as the patient's daughter. The patient is a poor historian and has a lot of speech difficulty that makes it very difficult to understand her. She is reportedly found lying next to her bed on 06/06/2019 with complaints of right hip pain and obvious deformity of the right lower extremity. She was brought to the emergency room, where x-rays showed a right hip fracture. She was admitted to the medical service. Initial Orthopedic consultation was completed by Dr. Sethi, and at that time the family refused any surgical intervention and therefore orthopedics signed off of the consult. The family then changed their mind and wished to discuss surgical intervention and I was therefore re-consulted for the same issue yesterday afternoon. Per the daughter, the patient is normally nonambulatory, but is very active. She uses a wheelchair for mobilization, but scoots around under her own power with her legs quite frequently and very actively. She stands for pivoting and transferring. Allergies Allergy/AdvReac Type Severity Reaction Status Date / Time barium sulfate Allergy unknown Verified 06/07/19 10:23 benztropine Allergy unknown Verified 06/07/19 10:24 chlorpromazine Allergy unknown Verified 06/07/19 10:25 clozapine Allergy unknown Verified 06/07/19 10:25 diatrizoate meglumine Allergy Unknown Verified 06/07/19 10:27 diatrizoate sodium Allergy unknown Verified 06/07/19 10:25 gadodiamide Allergy unknown Verified 06/07/19 10:25 iodine Allergy unknown Verified 06/07/19 10:25 iodixanol Allergy unknown Verified 06/07/19 10:25 sulfamethoxazole Allergy Verified 06/07/19 10:27 [From Bactrim] trimethoprim [From Bactrim] Allergy Verified 06/07/19 10:27 Home Medications Home Medications Medication Instructions Recorded Confirmed Type Furosemide (Lasix) 40 mg PO DAILY #0 tab 12/09/12 History DIPHENHYDRAMINE HCL (BENADRYL) 25 mg PO Q8 PRN #0 04/18/13 History Ah Gel 1 applic TOPICAL DAILY 06/07/19 History Multiple Vitamin, Womens 1 tab PO DAILY 06/07/19 06/07/19 History acetaminophen 650 mg PO Q6H PRN 06/07/19 06/07/19 History bisacodyl 10 mg DC UD PRN 06/07/19 06/07/19 History cholecalciferol (vitamin D3) 400 unit PO DAILY 06/07/19 06/07/19 History compound vehicle susp SF no.25 06/07/19 History insulin detemir U-100 [Levemir 10 unit SUBCUT DAILY 06/07/19 06/07/19 History U-100 Insulin] magnesium hydroxide [Milk of 30 ml PO UD PRN 06/07/19 06/07/19 History Magnesia] metoprolol tartrate 25 mg PO BID 06/07/19 06/07/19 History nitroglycerin 0.4 mg SUBLINGUAL UD PRN 06/07/19 06/07/19 History potassium chloride 15 meq/kg PO BID 06/07/19 06/07/19 History sodium phosphates [Fleet Enema] 118 ml DC UD PRN 06/07/19 06/07/19 History whey protein isolate [Beneprotein] 1 ea PO DAILY 06/07/19 06/07/19 History Patient History Medical History CVA (cerebral vascular accident) Family History Unknown No significant family history Social History Preferred Language: [place] Communication Ability: Impaired Communication Ability Comment: baseline dementia/garbled speech Automotive Technician Instructor Required: No Beliefs That Will Affect Care: None Current Living Situation: Custodial Current Living Situation Comment: from health system Other Information That Helps Us Care for You: No Feels Safe at Home: Yes Safety Concerns: Feels Safe At This Time Smoking Status: Unknown if ever smoked Hx Alcohol Use: No Hx Substance Use: No Physical Exam Physical Exam: General: The patient appears well developed and well derik shed. Awake, alert, and responsive to questions. Appropriate mood and affect, but she is difficult to understand. Gait and station not assessed due to the known hip fracture. Normal coordination and balance. Skin: The skin over the right hip shows no open wounds. Inspection/Palpation: Visual inspection reveals shortening and external rotation of the leg. There is mild swelling and tenderness to palpation of the thigh and hip area. Compartments are soft and compressible. Range of Motion: Hip range of motion is limited due to pain. Stability: Ligamentous stability was not tested due to the known fracture. Strength: Hip strength is limited due to pain. Intact ankle dorsiflexion and plantarflexion. Sensation: The patient reports no numbness in the leg. Vascular: Leg is warm and well perfused. No diffuse edema. Results & Data Vital Signs (Past 12 Hours) Vital Signs Temp Pulse Resp BP Pulse Ox 06/09/19 08:13 37 C 87 16 166/75 H 95 06/08/19 22:55 37.6 C H 91 H 18 153/77 H 91 Laboratory Results H&H 10.4/29.9 Diagnostic Findings Right hip x-rays were reviewed. They show a significantly displaced subcapital femoral neck fracture. She appears to have relatively good bone density in the femur.
[2019-06-09] MEDS: cefTRIAXone SODIUM 1,000 MG/50 ML BAG IV SCH (10:02)
--- NOTE | 2019-06-09 15:30 | Hospitalist Progress Note ---
Date of Service June 09, 2019 Assessment & Plan (1) Closed fracture of right hip: Hip fracture S/P unwitnessed Fall Hip X ray:Displaced subcapital right femoral neck fracture in the setting of osteopenia. 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 Pain control Dr. Horton discussed with patient and daughter and they decided to proceed with surgery. NPO past midnight for OR tomorrow (2) Acute UTI: E. coli on urine culture Continue Rocephin Follow up sensitivities (3) Chronic ITP (idiopathic thrombocytopenia): No acute bleeding issues Monitor platelet count closely Plt is 71 today May need to discontinue heparin SQ if any bleeding issues or worsening thrombocytopenia (4) Dementia: No acute issues Monitor (5) Ambulatory dysfunction: Wheelchair-bound at baseline (6) Diabetes: Continue on ISS, Lantus A1c 5.2 Monitor BGs. Wasin 150-200 so far No tight glycemic control given age, comorbidities May need to relax insulin regimen on discharge (7) Paranoid schizophrenia in remission: Continue home medications Monitor for delirium Reorient frequently (8) Hypertension: Pain control Monitor Hypokalemia K today is 3.3 Replete and monitor DVT Px: Heparin SQ Code Status DNI/DNR: As per my discussion with patient's daughter yesterday- POA Daughter: Jalyn Hernandez: [phone]; [phone] Disposition May need rehab placement Will get PT/OT after surgery Subjective Patient seen and examined No new complaints reported except for pain with moving the right leg Review of Systems Review of Systems: ROS Limited due to dysphasia. Physical Exam Physical Exam: General: Elderly, thin, awake, alert, follows simple commands Eyes: PERRL, conjunctivae normal, EOM intact bilaterally Neck: Normal visual inspection, no tracheal deviation, no swelling noted Respiratory: Normal respiratory effort, no respiratory distress, lungs clear to auscultation, no crackles and no wheezes Cardiovascular: Pulse is RRR. s1s2 no pedal edema Gastrointestinal (Abdomen): Abdomen is not distended, soft, non-tender to palpation, no guarding, no palpable hepatosplenomegaly, normal bowel sounds Musculoskeletal: Right leg shortened and rotated, pain on active movement Neurologic: Awake and alert follows simple command. limited exam due to mental status and speech Results & Data Vital Signs (Past 12 Hours) Vital Signs Temp Pulse Resp BP Pulse Ox 06/09/19 15:18 36.7 C 101 H 12 153/84 H 93 06/09/19 08:13 37 C 87 16 166/75 H 95 (1) Closed fracture of right hip Encounter type: initial encounter Qualified Code(s): S72.001A - Fracture of unspecified part of neck of right femur, initial encounter for closed fracture
[2019-06-09] MEDS: DOCUSATE SODIUM/SENNA 50/8.6MG TAB PO SCH (20:22)
[2019-06-09] MEDS ORDERED: Nursing to Pharmacy Communication ONE (21:22)
[2019-06-10] MEDS: INSULIN ASPART 100 UNITS/ML 3 ML PEN SC SCH ×4 (05:33→21:08)
[2019-06-10] MEDS ORDERED: fentaNYL citrate 100 MCG/2 ML VIAL ONE ×2 (06:50→08:42)
--- NOTE | 2019-06-10 07:15 | History & Physical Bridge Note ---
Date of Service June 10, 2019 History & Physical Bridge Note I have examined the patient, reviewed the History & Physical and in the interval since the performance of the History & Physical I have noted the following changes of clinical significance: no changes noted
[2019-06-10] MEDS ORDERED: ALBUMIN HUMAN 5% 12.5 GM/250 ML VIAL IV ONE (07:20)
--- NOTE | 2019-06-10 07:28 | Anesthesiology Consultation ---
Date of Service June 10, 2019 Assessment & Plan (1) Encounter for pre-operative examination: Chart Review Chart Review: Acceptable Risk for Surgery and Patient NOT seen in Pre Admission Testing Consults Requested none ASA ASA4 Proposed Anesthesia Anesthesia Type: General Risk / Benefits Reviewed With: PT / POA / Parent / Guardian, Accepts Plan and Informed Consent Obtained Additional Comments: Will dose with IV glucocorticoids after induction. No plan for platelets unless significant intraoperative bleeding. History Surgery Operation Date: 06/10/19 07:30 Proposed Procedures p Total Hip Arthroplasty Uncemented(Right) - Epifanio Horton M.D. Height/Weight Height: 5 ft 6 in Weight: 56.4 kg Allergies Allergy/AdvReac Type Severity Reaction Status Date / Time barium sulfate Allergy unknown Verified 06/07/19 10:23 benztropine Allergy unknown Verified 06/07/19 10:24 chlorpromazine Allergy unknown Verified 06/07/19 10:25 clozapine Allergy unknown Verified 06/07/19 10:25 diatrizoate meglumine Allergy Unknown Verified 06/07/19 10:27 diatrizoate sodium Allergy unknown Verified 06/07/19 10:25 gadodiamide Allergy unknown Verified 06/07/19 10:25 iodine Allergy unknown Verified 06/07/19 10:25 iodixanol Allergy unknown Verified 06/07/19 10:25 sulfamethoxazole Allergy Verified 06/07/19 10:27 [From Bactrim] trimethoprim [From Bactrim] Allergy Verified 06/07/19 10:27 Medications Home Medications Medication Instructions Recorded Confirmed Last Taken Furosemide (Lasix) 40 mg PO DAILY #0 tab 12/09/12 Unknown DIPHENHYDRAMINE HCL (BENADRYL) 25 mg PO Q8 PRN #0 04/18/13 Unknown Ah Gel 1 applic TOPICAL DAILY 06/07/19 06/06/19 09:00 Multiple Vitamin, Womens 1 tab PO DAILY 06/07/19 06/07/19 06/06/19 09:00 acetaminophen 650 mg PO Q6H PRN 06/07/19 06/07/19 Unknown bisacodyl 10 mg NC UD PRN 06/07/19 06/07/19 Unknown cholecalciferol (vitamin D3) 400 unit PO DAILY 06/07/19 06/07/19 06/06/19 09:00 compound vehicle susp SF no.25 06/07/19 06/06/19 09:00 insulin detemir U-100 [Levemir 10 unit SUBCUT DAILY 06/07/19 06/07/19 06/06/19 09:00 U-100 Insulin] magnesium hydroxide [Milk of 30 ml PO UD PRN 06/07/19 06/07/19 Unknown Magnesia] metoprolol tartrate 25 mg PO BID 06/07/19 06/07/19 06/06/19 21:00 nitroglycerin 0.4 mg SUBLINGUAL UD PRN 06/07/19 06/07/19 Unknown potassium chloride 15 meq/kg PO BID 06/07/19 06/07/19 06/06/19 16:30 sodium phosphates [Fleet Enema] 118 ml NC UD PRN 06/07/19 06/07/19 Unknown whey protein isolate [Beneprotein] 1 ea PO DAILY 06/07/19 06/07/19 06/06/19 09:00 Active Medications Generic Name Dose Route Start Last Admin Trade Name Freq PRN Reason Stop Dose Admin Furosemide 40 mg 06/07/19 12:30 06/09/19 09:03 Lasix PO 07/07/19 12:29 40 mg DAILY JUNO Administration Heparin Sodium (Porcine) 5,000 units 06/07/19 21:00 06/09/19 20:32 Heparin Sodium (Porcine) SQ 07/07/19 20:59 5,000 units Q12 JUNO Administration Ceftriaxone Sodium 1,000 mg in 50 mls @ 100 mls/hr 06/08/19 10:00 06/09/19 10:35 Rocephin IV 06/12/19 09:59 Infused Q24H JUNO Infusion Insulin Aspart 0 units 06/10/19 00:00 06/10/19 05:33 Novolog Flexpen SC 07/10/19 00:00 1 units Q6 JUNO Administration Insulin Glargine 7 units 06/09/19 09:00 06/09/19 20:32 Lantus Solostar Pen SC 07/09/19 08:59 7 units BID JUNO Administration Metoprolol Tartrate 25 mg 06/07/19 21:00 06/09/19 20:22 Lopressor PO 07/07/19 20:59 25 mg BID JUNO Administration Oxycodone HCl 5 mg 06/07/19 12:13 06/08/19 21:59 Roxicodone Immediate Rel PO 06/21/19 12:12 5 mg Q4H PRN Administration MODERATE Pain (Scale 4,5,6) Senna/Docusate Sodium 2 tab 06/07/19 21:00 06/09/19 20:22 Senokot S PO 07/07/19 20:59 2 tab HS JUNO Administration Vitamin D 400 units 06/08/19 09:00 06/09/19 09:03 Vitamin D3 PO 07/08/19 08:59 400 units DAILY JUNO Administration NPO Date Last Intake of Fluids: 06/09/19 Time Last Intake of Fluids: 19:00 Date Last Intake of Solids: 06/09/19 Time Last Intake of Solids: 23:59 Past Medical History Medical History CVA (cerebral vascular accident) Displaced fracture of right femoral neck Exercise / Class Metabolic Activity IV < 2 Limit ADL/Bedbound (assists with transfers) Past Family History Family History Unknown No significant family history Past Anesthesia History No Hx of Anesthesia Complications and No Family Hx of Anesthesia Complications History of PONV No Hx of PONV and No Hx of Motion Sickness Social History Smoking Status: Unknown if ever smoked Hx Alcohol Use: No Hx Substance Use: No Physical Exam Vital Signs Last Vital Signs Temp 36.7 C 06/10/19 05:56 Pulse 67 06/10/19 05:56 Resp 20 06/10/19 05:56 BP 163/84 H 06/10/19 05:56 Pulse Ox 92 06/10/19 06:08 Constitutional + altered mental status (confused (baseline), responds to simple commands.) ENMT Mouth: + edentulous Thyromental Distance: > or= 3.5 Finger Breadths Mallampati Class: II Neck normal visual inspection Respiratory normal respiratory effort Auscultation: lungs clear to auscultation bilaterally Cardiovascular Rate/Rhythm: regular rate and regular rhythm Extremities: + edema (1+ bilateral LE) Psychiatric Orientation: alert Testing Laboratory Results 06/08/19 05:40 06/09/19 04:54 Hemoglobin A1c 5.2 % (4.5-5.6) 06/08/19 05:40 Urine Color Dark Yellow 06/07/19 09:40 Urine Appearance Turbid (Clear) A 06/07/19 09:40 Urine pH 6.0 (4.5-7.5) 06/07/19 09:40 Ur Specific Lutz 1.018 (1.000-1.030) 06/07/19 09:40 Urine Protein 2+ (Negative) H 06/07/19 09:40 Urine Glucose (UA) Negative (Negative) 06/07/19 09:40 Urine Ketones 1+ (Negative) H 06/07/19 09:40 Urine Nitrite Positive (Negative) A 06/07/19 09:40 Ur Leukocyte Esterase 3+ (Negative) H 06/07/19 09:40 Urine WBC (Auto) >30 /hpf (0-5) H 06/07/19 09:40 Urine RBC (Auto) >30 /hpf (0-4) H 06/07/19 09:40 U Hyaline Cast (Auto) 0 /lpf (0-5) 06/07/19 09:40 U Epithel Cells (Auto) 20-30 /lpf (0-5) H 06/07/19 09:40 Urine Bacteria (Auto) 4+ (Negative) H 06/07/19 09:40 Blood Type B Positive 06/07/19 12:41 Antibody Screen NEGATIVE 06/07/19 12:41 06/07/19 09:40 Urine Culture - Final Urine,Indwelling Cath Escherichia coli 06/10/19 06/09/19 06/09/19 05:31 23:27 20:31 POC Glucose 203 H 162 H 321 H* 06/09/19 20:29 POC Glucose 315 H* Electrocardiogram Date: 06/08/19 Findings: + NSR @ and + T wave inversion Chest X-Ray Date: 06/08/19 Findings: + NAD and + cardiomegaly :
[2019-06-10] MEDS ORDERED: CEFAZOLIN 250 MG/ML 1 GM VIAL ONE (07:30)
[2019-06-10] MEDS ORDERED: ESMOLOL HCL INJ 10 MG/ML 10ML VIAL IV ONE (08:00)
[2019-06-10] MEDS ORDERED: ROCURONIUM BROMIDE 10 MG/ML 5 ML VIAL ONE (08:15)
[2019-06-10] MEDS ORDERED: DEXAMETHASONE SOD INJ 4 MG/ML VIAL ONE (08:15)
[2019-06-10] MEDS ORDERED: ONDANSETRON INJ 2 MG/ML 2 ML VIAL ONE (08:15)
[2019-06-10] MEDS ORDERED: PROPOFOL IV EMULSION 10 MG/ML 20 ML VIAL IV ONE (08:15)
[2019-06-10] MEDS ORDERED: LARYING-O-JET KIT (LTA) ONE (08:15)
[2019-06-10] MEDS ORDERED: LIDOCAINE HCL 2% 2 ML VIAL/AMP(20MG/ML) INFIL ONE (08:15)
[2019-06-10] MEDS ORDERED: CEFAZOLIN 2000MG 2,000 MG/15 ML SYR IV ONE (08:21)
[2019-06-10] MEDS ORDERED: GLYCOPYRROLATE 0.2 MG/ML VIAL ONE (09:06)
[2019-06-10] MEDS ORDERED: NEOSTIGMINE METHYLSULFATE 5 MG/5 ML SYR ONE (09:06)
--- NOTE | 2019-06-10 09:33 | Post Operative Brief Note ---
Immediate Post Op Note v1 Date of Surgery June 10, 2019 Pre & Post Diagnosis Operation Date: 06/10/19 07:30 Pre-Op Diagnosis: Right Displaced Subcapital Femoral Neck Fracture Post-Op Diagnosis: Right Displaced Subcapital Femoral Neck Fracture I identified the patient and participated in the time-out.: Yes Procedure Operation Date: 06/10/19 07:30 Actual Procedures p Right Hip Hemiarthroplasty--Uncemented(Right) - Epifanio Horton M.D. Surgeon Epifanio Horton Product Manager Medical Device Paul Trotter PA-C Estimated Blood Loss 75 Findings Consistent with Post-Op Diagnosis
--- NOTE | 2019-06-10 09:44 | Operative Report ---
Post Operative Report Pre & Post Diagnosis Operation Date: 06/10/19 07:30 Pre-Op Diagnosis: Right Displaced Subcapital Femoral Neck Fracture Post-Op Diagnosis: Right Displaced Subcapital Femoral Neck Fracture I identified the patient and participated in the time-out.: Yes Procedure Operation Date: 06/10/19 07:30 Actual Procedures Right Hip Hemiarthroplasty--Uncemented (28237) - Epifanio Horton M.D. Surgeon Epifanio Horton Marine Oil Terminal Superintendent Paul Trotter PA-C Estimated Blood Loss 75 Findings Consistent with Post-Op Diagnosis Specimens Femoral head Drains None Anesthesia Type General Complications none Disposition Disposition: Recovery Room Indications Ms. Wright is an 83-year-old female who injured her right hip and a ground- level fall. History, clinical exam, and imaging were consistent with the above diagnosis. Risks, benefits, and alternatives of surgery were explained in detail. The patient understood all this and wished to proceed. Description of Procedure Components implanted: Biomet Echo Bi-Metric press-fit 12 x140mm Standard Femoral Stem 48 mm RingLoc Bi-Polar Acetabular Cup with +0mm Neck Patient was identified in the preoperative holding area. Operative extremity was marked. Patient was then brought back to the operating room, and general anesthesia was induced without complication. Appropriate weight-based dose of Ancef was infused intravenously for antibiotic prophylaxis. Patient was then turned in the lateral decubitus position with the right hip up. Hip positioner was applied to hold the pelvis stable. Axillary roll was placed and all bony prominences were well padded. The right leg was then prepped and draped in a standard sterile fashion using Chlorhexidine prep. I made an incision over the lateral aspect of the hip for a posterolateral approach. I then dissected through subcutaneous tissues down to the iliotibial band. The iliotibial band was divided in line with its fibers at the posterior third of the greater trochanter. Greater trochanteric bursectomy was then performed to expose the posterolateral aspect of the hip. I released the piriformis tendon and short external rotators off of their attachment point at the posterolateral aspect of the greater trochanter. These tendons was tagged with #2 FiberWire sutures in a locking Molina fashion for later repair. I then made a T-capsulotomy of the posterior hip joint capsule. The inferior leaf the capsulotomy was tagged with a #1 Vicryl suture for retraction during hip reduction and later repair. The femoral neck fracture was then easily identified. Comminuted fracture fragments were removed as they were encountered. I then marked the femoral neck about 1 cm proximal to the lesser trochanter and made the proximal femoral cut in line with the angle given by the proximal femoral resection guide. Femoral neck fracture fragments were then removed proximal to the neck cut. The femoral head was then removed and sized. Ligamentum teres was resected from the depth of the acetabulum and the acetabulum was copiously irrigated with sterile saline to insure that there were no remaining bone fragments. I then placed an appropriately-sized trial head into the acetabulum. It seated fully, had free range of motion, and had a good suction seal. I then used the box osteotome to remove a rectangle of bone at the posterolateral femur in line with the femoral canal to ensure that I was completely lateralized into the medial wall of the greater trochanter. Canal finder was then used down the center of the femoral canal. I then used a lateralizing reamer to ensure that I was completely lateralized to avoid varus positioning of the implant. I then sequentially reamed with the canal reamers until I got good cortical chatter. I then sequentially broached until I achieved good cortical fit. The final femoral stem was impacted into place. This showed excellent rotational stability. I then trialed with various neck lengths on the femoral stem while taking the hip through full range of motion. I selected a neck length that gave good stability of the hip through full range of motion, including in flexion, adduction, and internal rotation, as well as good range of motion in flexion and extension, and equal leg lengths. I then removed the trial femoral head and impacted the final femoral head onto the Hess taper of the femoral stem. I then again reduced the hip and took it through full range of motion. Again, there was excellent stability of the hip with full range of motion. I was then satisfied with the procedure. The wound was copiously irrigated with sterile saline via pulsatile irrigation. I then closed the posterior capsulotomy with #2 FiberWire suture. I then made three drill holes in the posterior aspect of the greater trochanter and passed the previously placed FiberWire sutures in the piriformis tendon and short external rotators through these drill holes. The tendons were reapproximated and tied with the hip held in external rotation. I then closed the iliotibial band with a #1 Vicryl suture as a tacking stitch followed by a running #0 V-Lock suture. Deep dermal tissue was then closed with 2-0 V-Lock, and subcutaneous tissue was closed with 3-0 V- Lock. Skin was then closed with moon. Sterile dressings were then applied with Xeroform, sterile gauze, ABD pad, and foam tape. Drapes were then removed and a hip abduction pillow was placed. The patient was then transferred over to the stretcher and taken to the Post-Anesthesia Care Unit in stable condition. There were no immediate complications from the procedure. I was present and scrubbed for the entire procedure. Due to the complex nature of the procedure, the entire surgery was performed with the operational assistance of Paul Trotter PA-C. The chemistry research assistant, under direct supervision, was involved in the performance of all aspects of the surgical procedure including patient positioning, tissue retraction, hemostasis, wound closure, and dressing application. I attest to the content of the Intraoperative Record and any orders documented therein. Any exceptions are noted below.
--- NOTE | 2019-06-10 09:56 | Anesthesiology Progress Note ---
Date of Service June 10, 2019 Anesthesia Post Procedure Vital Signs Vital Signs: Temp Pulse Pulse Resp BP BP Pulse Ox 06/10/19 09:39 36.2 C L 80 18 182/77 H 100 06/10/19 06:08 92 06/10/19 05:56 36.7 C 67 20 163/84 H 06/09/19 23:20 37.3 C 89 20 120/61 94 06/09/19 20:18 76 172/83 H 92 06/09/19 15:18 36.7 C 101 H 12 153/84 H 93 Pain Intensity Right Hip: Pain Intensity: 0 Transfer of Care Handoff Completed per policy Notes Mental Status: alert / awake / arousable Patient Amnestic to Procedure: Yes Nausea / Vomiting: adequately controlled Pain: adequately controlled Airway Patency, RR, SpO2: stable & adequate BP & HR: stable & adequate Hydration State: stable & adequate Anesthetic Complications: no major complications apparent
[2019-06-10] MEDS ORDERED: ePHEDrine sulfate 50 MG/ML AMP IV PRN (09:57)
[2019-06-10] MEDS ORDERED: ATROPINE SULFATE 0.1 MG/ML 10ML SYR IV PRN (09:57)
[2019-06-10] MEDS ORDERED: fentaNYL citrate 100 MCG/2 ML VIAL IV PRN (09:57)
[2019-06-10] MEDS ORDERED: NALOXONE HCL 0.4 MG/1 ML VIAL/CARP IV PRN (10:26)
[2019-06-10] MEDS ORDERED: ACETAMINOPHEN 325 MG TAB PO PRN (10:26)
[2019-06-10] MEDS: SODIUM CHLORIDE 0.9% 1000ML 1,000 ML IV SCH ×2 (10:36→21:35)
[2019-06-10] MEDS: cefTRIAXone SODIUM 1,000 MG/50 ML BAG IV SCH (10:36)
[2019-06-10] MEDS: FUROSEMIDE 40 MG TAB PO SCH (10:43)
[2019-06-10] MEDS: CHOLECALCIFEROL (VITAMIN D) 400 UNITS TABLET PO SCH (10:43)
[2019-06-10] MEDS: METOPROLOL TARTRATE 25 MG TAB PO SCH ×2 (10:43→19:55)
[2019-06-10] MEDS: INSULIN GLARGINE SOLOSTAR 100 UNITS/ML 3 ML PEN SC SCH (10:44)
[2019-06-10 10:48] LABS: Hematocrit (blood only) 31.2 % (37-47); Hemoglobin 10.5 g/dL (12.0-16.0); Mean Corpuscular Hemoglobin 32.4 pg (25-34); Mean Corpuscular Hgb Conc 33.7 g/dL (32-36); Mean Corpuscular Volume 96.3 fL (80-100); RDW Standard Deviation 49.2 fL (36.4-46.3); Red Blood Count 3.24 M/uL (4.2-5.4); White Blood Count 8.38 K/uL (4.8-10.8)
[2019-06-10 10:57] LABS: Mean Platelet Volume 9.9 fL (7.4-10.4); Platelet Count 75 K/uL (130-400)
[2019-06-10 11:10] LABS: BUN Creatinine Ratio 34.5 (10-20); Calcium 8.8 mg/dl (8.5-10.1); Creatinine Clr Calc Pharmacy 52.9 ml/min; Est GFR (African American) 88.9; Est GFR (Non-African American) 76.7; Magnesium 1.9 mg/dl (1.8-2.4); Potassium 3.8 mmol/L (3.5-5.1)
[2019-06-10] MEDS ORDERED: Nursing to Pharmacy Communication ONE (13:06)
[2019-06-10] MEDS: HEPARIN SOD 5,000 UNIT/0.5 ML VIAL SQ SCH (13:13)
--- NOTE | 2019-06-10 14:06 | Hospitalist Progress Note ---
Date of Service June 10, 2019 Assessment & Plan (1) Closed fracture of right hip: Hip fracture S/P unwitnessed Fall Hip X ray:Displaced subcapital right femoral neck fracture in the setting of osteopenia. 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 s/p right hip hemiarthroplasty this morning Pain control PT/OT eval Will need rehab (2) Acute UTI: E. coli on urine culture Changed to keflex for 2 more days to complete therapy (3) Chronic ITP (idiopathic thrombocytopenia): No acute bleeding issues Monitor platelet count closely Plt is 71 today May need to discontinue heparin SQ if any bleeding issues or worsening thrombocytopenia (4) Dementia: No acute issues Monitor (5) Ambulatory dysfunction: Wheelchair-bound at baseline (6) Diabetes: Continue on ISS, Lantus A1c 5.2 Monitor blood glucose and optimize control (7) Paranoid schizophrenia in remission: Continue home medications Monitor for delirium Reorient frequently (8) Hypertension: Pain control Monitor Hypokalemia- Resolved DVT Px: Heparin SQ Code Status DNI/DNR Daughter: Jalyn Hernandez: [phone]; [phone] Subjective Seen this afternoon after OR. Patient had no new complaints. Was just finishing lunch. Limited ROS due to difficult speech. Review of Systems Review of Systems: All systems reviewed and unremarkable except for mentioned above. Limited as above Physical Exam Physical Exam: General: Elderly, thin, awake, alert, follows simple commands Eyes: PERRL, conjunctivae normal, EOM intact bilaterally Neck: Normal visual inspection, no tracheal deviation, no swelling noted Respiratory: Normal respiratory effort, no respiratory distress, lungs clear to auscultation, no crackles and no wheezes Cardiovascular: Pulse is RRR. s1s2 no pedal edema Gastrointestinal (Abdomen): Abdomen is not distended, soft, non-tender to palpation, no guarding, no palpable hepatosplenomegaly, normal bowel sounds Musculoskeletal: Clean dressing over right hip with ice packs. Neurologic: Awake and alert follows simple command. limited exam due to dysarthria vs dysphasia Results & Data Vital Signs (Past 12 Hours) Vital Signs Temp Pulse Pulse Resp BP BP Pulse Ox 06/10/19 12:32 36.2 C L 86 16 164/88 H 97 06/10/19 11:26 36.5 C 94 H 18 166/95 H 91 06/10/19 10:58 65 18 181/76 H 93 06/10/19 10:25 36.7 C 87 18 174/83 H 95 06/10/19 09:55 86 18 186/83 H 98 06/10/19 09:45 75 18 167/78 H 100 06/10/19 09:39 36.2 C L 80 18 182/77 H 100 06/10/19 06:08 92 06/10/19 05:56 36.7 C 67 20 163/84 H (1) Closed fracture of right hip Encounter type: initial encounter Qualified Code(s): S72.001A - Fracture of unspecified part of neck of right femur, initial encounter for closed fracture
--- NOTE | 2019-06-10 14:16 | XRay Report ---
XR hip 1V RT w pelvis CLINICAL HISTORY: Right hip fracture status post surgery COMPARISON: 06/07/2019 DISCUSSION: There is a bipolar right hip arthroplasty. There is no dislocation. There are overlying s kin moon. There is air within the soft tissues consistent with recent surgery. IMPRESSION: Bipolar right hip arthroplasty. No complicating features identified Electronically signed by: Randy Collins M.D. 06/10/2019 2:13 PM
[2019-06-10] MEDS ORDERED: INSULIN ASPART 100 UNITS/ML 3 ML PEN SC STA (17:28)
[2019-06-10] MEDS: AMLODIPINE BESYLATE 5 MG TAB PO SCH (18:53)
[2019-06-10] MEDS ORDERED: PHARMACY GLYCEMIC MGMT CONSULT PRN (19:01)
[2019-06-10] MEDS ORDERED: INSULIN GLARGINE SOLOSTAR 100 UNITS/ML 3 ML PEN SC STA ×2 (19:18→19:31)
[2019-06-10] MEDS: cephALEXin 500 MG CAP PO SCH (20:26)
[2019-06-10] MEDS: DOCUSATE SODIUM/SENNA 50/8.6MG TAB PO SCH (20:26)
[2019-06-11] MEDS: INSULIN ASPART 100 UNITS/ML 3 ML PEN SC SCH ×6 (01:20→21:23)
[2019-06-11 05:25] LABS: Hematocrit (blood only) 31.8 % (37-47); Hemoglobin 10.7 g/dL (12.0-16.0); Mean Corpuscular Hemoglobin 32.7 pg (25-34); Mean Corpuscular Hgb Conc 33.6 g/dL (32-36); Mean Corpuscular Volume 97.2 fL (80-100); RDW Coefficient of Variation 14.2 % (11.5-14.5); RDW Standard Deviation 50.5 fL (36.4-46.3); Red Blood Count 3.27 M/uL (4.2-5.4)
[2019-06-11 05:45] LABS: BUN Creatinine Ratio 49.1 (10-20); Calcium 9.2 mg/dl (8.5-10.1); Creatinine Clr Calc Pharmacy 56.8 ml/min; Est GFR (African American) 94.4; Est GFR (Non-African American) 81.5; Potassium 3.9 mmol/L (3.5-5.1)
[2019-06-11 05:49] LABS: Platelet Count 99 K/uL (130-400)
[2019-06-11 05:50] LABS: Basophils # (auto) 0.01 K/uL (0-0.2); Basophils % (auto) 0.1 %; Immature Granulocytes # (auto) 0.08 K/uL (0.00-0.02); Immature Granulocytes % (auto) 0.6 %; Lymphocytes # (auto) 1.03 K/uL (1.2-3.4); Lymphocytes % (auto) 7.2 %; Monocytes # (auto) 0.69 K/uL (0.11-0.59); Monocytes % (auto) 4.8 %; Neutrophils # (auto) 12.59 K/uL (1.4-6.5); Neutrophils % (auto) 87.3 %; RBC Morphology Unremarkable
--- NOTE | 2019-06-11 07:18 | Orthopedic Progress Note ---
Date of Service June 11, 2019 Assessment & Plan (1) Displaced fracture of right femoral neck: Status post right hip hemiarthroplasty POD#1 -Ancef x24 -DVT prophylaxis: SCDs, teds, Xarelto daily -Weight-bear as tolerated right lower extremity -PT/OT when medically stable -Posterior hip precautions -A.m. labs: hgb 10.7 Subjective Post Operative Progress Note Patient seen sitting up in bed, comfortable, denies complaints, pain well controlled, no acute issues. Review of Systems Review of Systems: All systems reviewed & are unremarkable except as noted in HPI & below Constitutional: as per Subjective / HPI Physical Exam Physical Exam: RLE NVSI +EHL/FHL/TA/GS SILT grossly, +2 DP pulse, compartments soft NT, dressing cdi. Constitutional: WD/WN, vitals as above Results & Data Vital Signs (Past 12 Hours) Vital Signs Temp Pulse Pulse Resp BP Pulse Ox 06/11/19 03:12 37.0 C 89 16 178/72 H 93 06/10/19 23:04 108 H 18 184/77 H 93 06/10/19 19:53 36.5 C 100 H 18 171/72 H 96 06/10/19 19:40 121 H 97 Laboratory Results 06/11/19 06/11/19 06/11/19 Range/Units 04:51 04:51 03:57 WBC 14.40 H (4.8-10.8) K/uL RBC 3.27 L (4.2-5.4) M/uL Hgb 10.7 L (12.0-16.0) g/dL Hct 31.8 L (37-47) % MCV 97.2 (80-100) fL MCH 32.7 (25-34) pg MCHC 33.6 (32-36) g/dL RDW Std Deviation 50.5 H (36.4-46.3) fL RDW Coeff of Catia 14.2 (11.5-14.5) % Plt Count 99 L (130-400) K/uL MPV 10.0 (7.4-10.4) fL Immature Gran % (Auto) 0.6 % Neut % (Auto) 87.3 % Lymph % (Auto) 7.2 % Leake % (Auto) 4.8 % Eos % (Auto) 0.0 % Baso % (Auto) 0.1 % Immature Gran # (Auto) 0.08 H (0.00-0.02) K/uL Neut # (Auto) 12.59 H (1.4-6.5) K/uL Lymph # (Auto) 1.03 L (1.2-3.4) K/uL Leake # (Auto) 0.69 H (0.11-0.59) K/uL Eos # (Auto) 0.00 (0-0.5) K/uL Baso # (Auto) 0.01 (0-0.2) K/uL RBC Morphology Unremarkable Sodium 144 (136-145) mmol/L Potassium 3.9 (3.5-5.1) mmol/L Chloride 111 H (98-107) mmol/L Carbon Dioxide 30 (21-32) mmol/L Anion Gap 3.0 (3-11) BUN 33 H (7-18) mg/dl Creatinine 0.68 (0.6-1.2) mg/dl Est Cr Clr Drug Dosing 56.8 ml/min Est GFR ( Amer) 94.4 Est GFR (Non-Af Amer) 81.5 BUN/Creatinine Ratio 49.1 H (10-20) Glucose 118 H (70-99) mg/dl POC Glucose 109 H (70-99) Calcium 9.2 (8.5-10.1) mg/dl Magnesium (1.8-2.4) mg/dl 06/10/19 06/10/19 06/10/19 Range/Units 23:51 20:34 20:33 WBC (4.8-10.8) K/uL RBC (4.2-5.4) M/uL Hgb (12.0-16.0) g/dL Hct (37-47) % MCV (80-100) fL MCH (25-34) pg MCHC (32-36) g/dL RDW Std Deviation (36.4-46.3) fL RDW Coeff of Catia (11.5-14.5) % Plt Count (130-400) K/uL MPV (7.4-10.4) fL Immature Gran % (Auto) % Neut % (Auto) % Lymph % (Auto) % Leake % (Auto) % Eos % (Auto) % Baso % (Auto) % Immature Gran # (Auto) (0.00-0.02) K/uL Neut # (Auto) (1.4-6.5) K/uL Lymph # (Auto) (1.2-3.4) K/uL Leake # (Auto) (0.11-0.59) K/uL Eos # (Auto) (0-0.5) K/uL Baso # (Auto) (0-0.2) K/uL RBC Morphology Sodium (136-145) mmol/L Potassium (3.5-5.1) mmol/L Chloride (98-107) mmol/L Carbon Dioxide (21-32) mmol/L Anion Gap (3-11) BUN (7-18) mg/dl Creatinine (0.6-1.2) mg/dl Est Cr Clr Drug Dosing ml/min Est GFR ( Amer) Est GFR (Non-Af Amer) BUN/Creatinine Ratio (10-20) Glucose (70-99) mg/dl POC Glucose 119 H 332 H* 330 H* (70-99) Calcium (8.5-10.1) mg/dl Magnesium (1.8-2.4) mg/dl 06/10/19 06/10/19 06/10/19 Range/Units 19:27 18:34 18:32 WBC (4.8-10.8) K/uL RBC (4.2-5.4) M/uL Hgb (12.0-16.0) g/dL Hct (37-47) % MCV (80-100) fL MCH (25-34) pg MCHC (32-36) g/dL RDW Std Deviation (36.4-46.3) fL RDW Coeff of Catia (11.5-14.5) % Plt Count (130-400) K/uL MPV (7.4-10.4) fL Immature Gran % (Auto) % Neut % (Auto) % Lymph % (Auto) % Leake % (Auto) % Eos % (Auto) % Baso % (Auto) % Immature Gran # (Auto) (0.00-0.02) K/uL Neut # (Auto) (1.4-6.5) K/uL Lymph # (Auto) (1.2-3.4) K/uL Leake # (Auto) (0.11-0.59) K/uL Eos # (Auto) (0-0.5) K/uL Baso # (Auto) (0-0.2) K/uL RBC Morphology Sodium (136-145) mmol/L Potassium (3.5-5.1) mmol/L Chloride (98-107) mmol/L Carbon Dioxide (21-32) mmol/L Anion Gap (3-11) BUN (7-18) mg/dl Creatinine (0.6-1.2) mg/dl Est Cr Clr Drug Dosing ml/min Est GFR ( Amer) Est GFR (Non-Af Amer) BUN/Creatinine Ratio (10-20) Glucose (70-99) mg/dl POC Glucose 292 H 322 H* 330 H* (70-99) Calcium (8.5-10.1) mg/dl Magnesium (1.8-2.4) mg/dl 06/10/19 06/10/19 06/10/19 Range/Units 17:18 17:08 11:58 WBC (4.8-10.8) K/uL RBC (4.2-5.4) M/uL Hgb (12.0-16.0) g/dL Hct (37-47) % MCV (80-100) fL MCH (25-34) pg MCHC (32-36) g/dL RDW Std Deviation (36.4-46.3) fL RDW Coeff of Catia (11.5-14.5) % Plt Count (130-400) K/uL MPV (7.4-10.4) fL Immature Gran % (Auto) % Neut % (Auto) % Lymph % (Auto) % Leake % (Auto) % Eos % (Auto) % Baso % (Auto) % Immature Gran # (Auto) (0.00-0.02) K/uL Neut # (Auto) (1.4-6.5) K/uL Lymph # (Auto) (1.2-3.4) K/uL Leake # (Auto) (0.11-0.59) K/uL Eos # (Auto) (0-0.5) K/uL Baso # (Auto) (0-0.2) K/uL RBC Morphology Sodium (136-145) mmol/L Potassium (3.5-5.1) mmol/L Chloride (98-107) mmol/L Carbon Dioxide (21-32) mmol/L Anion Gap (3-11) BUN (7-18) mg/dl Creatinine (0.6-1.2) mg/dl Est Cr Clr Drug Dosing ml/min Est GFR ( Amer) Est GFR (Non-Af Amer) BUN/Creatinine Ratio (10-20) Glucose (70-99) mg/dl POC Glucose 326 H* 300 H 246 H (70-99) Calcium (8.5-10.1) mg/dl Magnesium (1.8-2.4) mg/dl 06/10/19 06/10/19 06/10/19 Range/Units 10:33 10:33 09:58 WBC 8.38 (4.8-10.8) K/uL RBC 3.24 L (4.2-5.4) M/uL Hgb 10.5 L (12.0-16.0) g/dL Hct 31.2 L (37-47) % MCV 96.3 (80-100) fL MCH 32.4 (25-34) pg MCHC 33.7 (32-36) g/dL RDW Std Deviation 49.2 H (36.4-46.3) fL RDW Coeff of Catia 14.0 (11.5-14.5) % Plt Count 75 L (130-400) K/uL MPV 9.9 (7.4-10.4) fL Immature Gran % (Auto) % Neut % (Auto) % Lymph % (Auto) % Leake % (Auto) % Eos % (Auto) % Baso % (Auto) % Immature Gran # (Auto) (0.00-0.02) K/uL Neut # (Auto) (1.4-6.5) K/uL Lymph # (Auto) (1.2-3.4) K/uL Leake # (Auto) (0.11-0.59) K/uL Eos # (Auto) (0-0.5) K/uL Baso # (Auto) (0-0.2) K/uL RBC Morphology Sodium 139 (136-145) mmol/L Potassium 3.8 D (3.5-5.1) mmol/L Chloride 106 (98-107) mmol/L Carbon Dioxide 29 (21-32) mmol/L Anion Gap 4.0 (3-11) BUN 25 H (7-18) mg/dl Creatinine 0.73 (0.6-1.2) mg/dl Est Cr Clr Drug Dosing 52.9 ml/min Est GFR ( Amer) 88.9 Est GFR (Non-Af Amer) 76.7 BUN/Creatinine Ratio 34.5 H (10-20) Glucose 213 H (70-99) mg/dl POC Glucose 213 H (70-99) Calcium 8.8 (8.5-10.1) mg/dl Magnesium 1.9 (1.8-2.4) mg/dl
[2019-06-11] MEDS ORDERED: INSULIN GLARGINE SOLOSTAR 100 UNITS/ML 3 ML PEN SC ONE ×3 (08:30→21:00)
[2019-06-11] MEDS: CHOLECALCIFEROL (VITAMIN D) 400 UNITS TABLET PO SCH (08:59)
[2019-06-11] MEDS: METOPROLOL TARTRATE 25 MG TAB PO SCH ×2 (08:59→21:20)
[2019-06-11] MEDS: RIVAROXABAN 10 MG TABLET PO SCH (08:59)
[2019-06-11] MEDS: cephALEXin 500 MG CAP PO SCH ×2 (08:59→21:20)
[2019-06-11] MEDS: AMLODIPINE BESYLATE 5 MG TAB PO SCH (08:59)
[2019-06-11] MEDS: FUROSEMIDE 40 MG TAB PO SCH (08:59)
--- NOTE | 2019-06-11 09:43 | Pharmacy Report ---
Glycemic Control Consultation - Date of Service June 11, 2019 - Scope Scope: Glycemic Pharmacist consulted by Dr Barreto on 06/10/19 for glycemic control and to write orders per [facility] inpatient glycemic control protocol - Objective Weight: 56.4 kg Accuchecks BSG (last 24hrs): 06/10/19 06/10/19 06/10/19 09:58 10:33 11:58 Glucose 213 H POC Glucose 213 H 246 H 06/10/19 06/10/19 06/10/19 17:08 17:18 18:32 Glucose POC Glucose 300 H 326 H* 330 H* 06/10/19 06/10/19 06/10/19 18:34 19:27 20:33 Glucose POC Glucose 322 H* 292 H 330 H* 06/10/19 06/10/19 06/11/19 20:34 23:51 03:57 Glucose POC Glucose 332 H* 119 H 109 H 06/11/19 06/11/19 04:51 08:07 Glucose 118 H POC Glucose 162 H Laboratory Data (last 24hrs): 06/10/19 06/11/19 10:33 04:51 Potassium 3.8 D 3.9 Carbon Dioxide 29 30 Anion Gap 4.0 3.0 Creatinine 0.73 0.68 Est Cr Clr Drug Dosing 52.9 56.8 HbA1c: Hemoglobin A1c 5.2 % (4.5-5.6) 06/08/19 05:40 - Recent Pertinent Medications Outpatient Anti-diabetic Regimen: * Levemir 10 units daily * A1c = 5.2 % (06/08/19) Risk Factors for Insulin Resistance: * Steroids: Received IV dexamethasone in OR yesterday AM * Infection: receiving cephalexin 500 mg PO BID for treatment of UTI * Recent Surgery: POD #1 s/p right hip hemiarthroplasty * Diet: T2DM - Assessment & Plan Assessment & Plan: ASSESSMENT: * DR is an 83 year old female POD #1 s/p right hip hemiarthroplasty (right hip fracture on 06/07/19) * Patient has a PMH of type 2 DM, dementia, paranoid schizophrenia (in remission), chronic ITP, and hypertension * Yesterday BSGs ranging 119-392 mg/dL (patient received IV dexamethasone in OR) * Patient received 49 units of insulin yesterday (23 basal, 26 prandial/correctional) * Will scale back today - as this was most likely steroid-induced hyperglycemia and no ongoing steroids ordered * Continues on cephalexin 500 mg PO BID for UTI PLAN FOR INPATIENT GLYCEMIC CONTROL: * Basal insulin * Lantus 7 units administered this morning (decrease from home dose based on A1c of 5.2%) * Lantus scale for this evening * -BSG 140 mg/dL or below - 0 units * -BSG 141-179 mg/dL - 3 units * -BSG 180 mg/dL or above - 7 units * Bolus insulin - loosen CF and CR * NovoLog per scale ACHS or Q6hrs while NPO * Goal Range: Low 110 mg/dL - High 150 mg/dL * Correction Factor: 40 mg/dL/unit * Nutritional / Prandial insulin per carb ratio of 1 unit per 14 grams CHO consumed * 0200 check added with same parameters * Please note that the plan above was derived based on current level of insulin resistance and hospital stress. These recommendations are appropriate for inpatient admission only. Plan of care upon discharge will need to be reassessed to avoid potential outpatient hypo/hyperglycemia. Thank you.
[2019-06-11] MEDS ORDERED: AMLODIPINE BESYLATE 5 MG TAB PO ONE (14:39)
--- NOTE | 2019-06-11 14:41 | Hospitalist Progress Note ---
Date of Service June 11, 2019 Assessment & Plan (1) Closed fracture of right hip: Hip fracture S/P unwitnessed Fall Hip X ray:Displaced subcapital right femoral neck fracture in the setting of osteopenia. 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 s/p right hip hemiarthroplasty 06/10/19 Pain control PT/OT nay noted Inpatient rehab placement in process Plan to discharge on xarelto for 2 weeks Follow up ortho outpatient (2) Acute UTI: E. coli on urine culture On keflex to complete by tomorrow (3) Chronic ITP (idiopathic thrombocytopenia): No acute bleeding issues Platelet is 99 today Monitor platelet count (4) Dementia: No acute issues Monitor (5) Ambulatory dysfunction: Wheelchair-bound at baseline (6) Diabetes: Continue on ISS, Lantus A1c 5.2 Monitor blood glucose and optimize control (7) Paranoid schizophrenia in remission: Continue home medications Monitor for delirium Reorient frequently (8) Hypertension: Poorly controlled Increased amlodipine to 10mg Monitor Hypokalemia- Resolved DVT Px: On xarelto Code Status DNI/DNR Daughter: Jalyn Hernandez: [phone]; [phone] Subjective Patient has no complaints today BP has been poorly controlled Denied any complaints on limited ROS to which patient answers yes or no and by nodding due to limited communication (dysarthria/dysphasia) Review of Systems Review of Systems: All systems reviewed and unremarkable except for mentioned above. Physical Exam Physical Exam: General: Elderly, thin, awake, alert, follows simple commands, sitting in wheelchair comfortably Eyes: PERRL, conjunctivae normal, EOM intact bilaterally Neck: Normal visual inspection, no tracheal deviation, no swelling noted Respiratory: Normal respiratory effort, no respiratory distress, lungs clear to auscultation, no crackles and no wheezes Cardiovascular: Pulse is RRR. s1s2 no pedal edema Gastrointestinal (Abdomen): Abdomen is not distended, soft, non-tender to palpation, no guarding, no palpable hepatosplenomegaly, normal bowel sounds Musculoskeletal: Clean dressing over right hip with ice packs. moves legs wi thout discomfort Neurologic: Awake and alert follows simple command. limited exam due to dysarthria vs dysphasia Results & Data Vital Signs (Past 12 Hours) Vital Signs Temp Pulse Resp BP Pulse Ox Pulse Ox Pulse Ox 06/11/19 10:19 93 91 06/11/19 07:23 36.5 C 86 16 175/84 H 97 06/11/19 03:12 37.0 C 89 16 178/72 H 93 Laboratory Results Abnormal lab results 06/10/19 06/10/19 06/10/19 Range/Units 18:32 18:34 19:27 WBC (4.8-10.8) K/uL RBC (4.2-5.4) M/uL Hgb (12.0-16.0) g/dL Hct (37-47) % RDW Std Deviation (36.4-46.3) fL Plt Count (130-400) K/uL Immature Gran # (Auto) (0.00-0.02) K/uL Neut # (Auto) (1.4-6.5) K/uL Lymph # (Auto) (1.2-3.4) K/uL [place] # (Auto) (0.11-0.59) K/uL Chloride (98-107) mmol/L BUN (7-18) mg/dl BUN/Creatinine Ratio (10-20) Glucose (70-99) mg/dl POC Glucose 330 H* 322 H* 292 H (70-99) 06/10/19 06/10/19 06/10/19 Range/Units 20:33 20:34 23:51 WBC (4.8-10.8) K/uL RBC (4.2-5.4) M/uL Hgb (12.0-16.0) g/dL Hct (37-47) % RDW Std Deviation (36.4-46.3) fL Plt Count (130-400) K/uL Immature Gran # (Auto) (0.00-0.02) K/uL Neut # (Auto) (1.4-6.5) K/uL Lymph # (Auto) (1.2-3.4) K/uL [place] # (Auto) (0.11-0.59) K/uL Chloride (98-107) mmol/L BUN (7-18) mg/dl BUN/Creatinine Ratio (10-20) Glucose (70-99) mg/dl POC Glucose 330 H* 332 H* 119 H (70-99) 1206/11/19 06/11/19 Range/Units 03:57 04:51 04:51 WBC 14.40 H (4.8-10.8) K/uL RBC 3.27 L (4.2-5.4) M/uL Hgb 10.7 L (12.0-16.0) g/dL Hct 31.8 L (37-47) % RDW Std Deviation 50.5 H (36.4-46.3) fL Plt Count 99 L (130-400) K/uL Immature Gran # (Auto) 0.08 H (0.00-0.02) K/uL Neut # (Auto) 12.59 H (1.4-6.5) K/uL Lymph # (Auto) 1.03 L (1.2-3.4) K/uL [place] # (Auto) 0.69 H (0.11-0.59) K/uL Chloride 111 H (98-107) mmol/L BUN 33 H (7-18) mg/dl BUN/Creatinine Ratio 49.1 H (10-20) Glucose 118 H (70-99) mg/dl POC Glucose 109 H (70-99) 06/11/19 06/11/19 06/11/19 Range/Units 08:07 11:57 17:13 WBC (4.8-10.8) K/uL RBC (4.2-5.4) M/uL Hgb (12.0-16.0) g/dL Hct (37-47) % RDW Std Deviation (36.4-46.3) fL Plt Count (130-400) K/uL Immature Gran # (Auto) (0.00-0.02) K/uL Neut # (Auto) (1.4-6.5) K/uL Lymph # (Auto) (1.2-3.4) K/uL [place] # (Auto) (0.11-0.59) K/uL Chloride (98-107) mmol/L BUN (7-18) mg/dl BUN/Creatinine Ratio (10-20) Glucose (70-99) mg/dl POC Glucose 162 H 203 H 228 H (70-99) (1) Closed fracture of right hip Encounter type: initial encounter Qualified Code(s): S72.001A - Fracture of unspecified part of neck of right femur, initial encounter for closed fracture
[2019-06-11] MEDS: DOCUSATE SODIUM/SENNA 50/8.6MG TAB PO SCH (21:35)
[2019-06-12] MEDS: INSULIN ASPART 100 UNITS/ML 3 ML PEN SC SCH ×4 (00:17→13:25)
[2019-06-12] MEDS ORDERED: INSULIN ASPART 100 UNITS/ML 3 ML PEN SC SCH (02:00)
[2019-06-12] MEDS ORDERED: INSULIN GLARGINE SOLOSTAR 100 UNITS/ML 3 ML PEN SC ONE ×2 (08:30→21:00)
[2019-06-12] MEDS: METOPROLOL TARTRATE 25 MG TAB PO SCH (08:54)
[2019-06-12] MEDS: FUROSEMIDE 40 MG TAB PO SCH (08:54)
[2019-06-12] MEDS: CHOLECALCIFEROL (VITAMIN D) 400 UNITS TABLET PO SCH (08:55)
[2019-06-12] MEDS: RIVAROXABAN 10 MG TABLET PO SCH (08:56)
[2019-06-12] MEDS: cephALEXin 500 MG CAP PO SCH (08:56)
[2019-06-12] MEDS ORDERED: AMLODIPINE BESYLATE 5 MG TAB PO SCH (09:00)
--- NOTE | 2019-06-12 09:34 | Pharmacy Report ---
Pharmacy Glycemic Short Note 2 - Date of Service June 12, 2019 - Glycemic Short BSG Results (Last 24 hours): 06/11/19 06/11/19 06/11/19 11:57 17:13 20:28 POC Glucose 203 H 228 H 307 H* 06/11/19 06/11/19 06/12/19 20:49 23:16 04:01 POC Glucose 290 H 116 H 162 H 06/12/19 08:18 POC Glucose 154 H OUTPATIENT ANTIDIABETIC REGIMEN: * Levemir 10 units daily * A1c = 5.2 % (06/08/19) * ASSESSMENT: * is now POD #2 s/p right hip hemiarthroplasty (right hip fracture on 06/07/19) * Yesterday's BSGs ranging 109-307 mg/dL * Patient received 28 units of insulin yesterday (14 of basal and 14 of prandial/correctional) * CF and CR tightened at HS last night and continued today * Fasting BSG this morning of 154 mg/dL - will give home dose this morning and plan for scale this evening * Patient continues on cephalexin 500 mg PO BID for treatment of UTI (will finish course today) * Patient to be discharged to [facility] facility today PLAN FOR INPATIENT GLYCEMIC CONTROL: * Hold outpatient oral diabetes medications * Basal insulin * Lantus 10 units this morning (home dose) * Continue Lantus scale from last night (for if patient remains inpatient this evening) * -0 units if BSG 140 mg/dL or below * -3 units if BSG 141-179 mg/dL * -7 units if BSG 180 mg/dL or above * Bolus insulin * NovoLog per scale ACHS or Q6hrs while NPO * Goal Range: Low 110 mg/dL - High 150 mg/dL * Correction Factor: 30 mg/dL/unit * Nutritional / Prandial insulin per carb ratio of 1 unit per 10 grams CHO consumed PLAN FOR DISCHARGE: * Patient had unwitnessed fall leading to right hip fracture (unsure if this was related to hypoglycemia) * Patient requiring much more insulin while inpatient, compared to outpatient regimen of Levemir 10 units daily (A1c: 5.2%) * May be due to insulin resistance secondary to UTI, recent surgery, and IV dexamethasone administration * Reasonable A1c goal for this patient would be less than 8% * Consider more frequent SMBG checks to assess for hypoglycemia * May require Levemir dose reduction as an outpatient to prevent hypoglycemia
--- NOTE | 2019-06-12 13:19 | Discharge Summary ---
Date of Service June 12, 2019 Admission HPI Per Admitting Provider Patient is an 83-year-old female with history of Alzheimer's dementia, paranoid schizophrenia, diabetes--insulin-dependent, hypertension, hyperlipidemia, CVA, chronic thrombocytopenia, depression and other problems presents with history of an unwitnessed fall from [facility]. Patient is a poor historian secondary to her mental condition and most of the history is obtained from the ER physician, staff from [facility] and the patient's daughter. Patient was noted to be lying on the floor on her back next to her bed and was complaining of right hip pain since the fall. No known history of head trauma, change in mental status, fever chills, chest pain, shortness of breath, dysuria, hematuria as per the staff. Right leg was noted to be shortened and internally rotated by the staff and was so sent to the ED for further evaluation. Patient seems to be oriented while in ED and complains of right hip pain. Discussed with patient's daughter in detail who currently requests no aggressive management including procedures/surgery given her comorbidities. Patient is wheelchair-bound at baseline as per the daughter. CT head showed no acute intracranial abnormality. Right hip x-ray showed displaced subcapital right femoral neck fracture. UA suggestive of possible urinary tract infection. Chronic thrombocytopenia with platelet count of 68,000 noted on labs. Admission Exam Per Admitting Provider General Appearance:Elderly, thin, no apparent distress Head: normocephalic, Atraumatic Eyes: normal inspection, EOMI Neck: supple, Trachea midline Respiratory/Chest: Normal breath sounds, CTA, No accessory muscle use Cardiovascular: S1, S2, No murmur Abdomen/GI:Soft, Non tender, Bowel sounds present Extremities/Musculoskelatal:normal inspection, Trace edema, right leg internally rotated, shortened Neurologic/Psych:AAOX2, grossly moves all extremities, complete neuro exam could not be performed. Skin: normal color, warm Principal Diagnosis Fall Right hip displaced subcapital femoral neck fracture S/P right hemiarthroplasty E. coli UTI Discharge Exam General: Elderly, thin, awake, alert, follows simple commands Eyes: PERRL, conjunctivae normal, EOM intact bilaterally Neck: Normal visual inspection, no tracheal deviation, no swelling noted Respiratory: Normal respiratory effort, no respiratory distress, lungs clear to auscultation, no crackles and no wheezes Cardiovascular: Pulse is RRR. s1s2 no pedal edema Gastrointestinal (Abdomen): Abdomen is not distended, soft, non-tender to palpation, no guarding, no palpable hepatosplenomegaly, normal bowel sounds Musculoskeletal: Clean dressing over right hip. Moves legs without discomfort Neurologic: Awake and alert follows simple command. limited exam due to nonverbal Discharge Data Allergies Allergy/AdvReac Type Severity Reaction Status Date / Time barium sulfate Allergy unknown Verified 06/07/19 10:23 benztropine Allergy unknown Verified 06/07/19 10:24 chlorpromazine Allergy unknown Verified 06/07/19 10:25 clozapine Allergy unknown Verified 06/07/19 10:25 diatrizoate meglumine Allergy Unknown Verified 06/07/19 10:27 diatrizoate sodium Allergy unknown Verified 06/07/19 10:25 gadodiamide Allergy unknown Verified 06/07/19 10:25 iodine Allergy unknown Verified 06/07/19 10:25 iodixanol Allergy unknown Verified 06/07/19 10:25 sulfamethoxazole Allergy Verified 06/07/19 10:27 [From Bactrim] trimethoprim [From Bactrim] Allergy Verified 06/07/19 10:27 Consultations 06/07/19 10:14 ED Decision to Admit Stat 06/07/19 12:13 Consult Case Management - Discharge Planning Routine Consult Orthopedic Surgery Routine 06/11/19 08:00 Consult Case Management - Discharge Planning Routine Procedures Performed Operation Date: 06/10/19 07:30 Actual Procedures p Right Hip Hemiarthroplasty--Uncemented(Right) - Epifanio Horton M.D. Ordered Studies 06/07/19 08:53 CT cervical spine wo con Stat 1. No acute osseous injury of the cervical spine. 2. Multilevel degenerative changes. CT head/brain wo con Stat 1. Chronic small vessel ischemic change and multiple bilateral basal ganglia old lacunar infarcts. 2. No acute intracranial abnormality. XR femure Right Subcapital displaced right femoral neck fracture again noted in the setting of osteopenia. The knee joint is grossly congruent. Degenerative changes noted at the knee with osteophytosis. No evidence of any joint effusion. No additional fracture in the femur or in the visualized portion of the lower leg. Extensive atherosclerosis. Hospital Course (1) Closed fracture of right hip: Hip fracture following unwitnessed Fall Hip X ray:Displaced subcapital right femoral neck fracture in the setting of osteopenia. 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 s/p right hip hemiarthroplasty 06/10/19 Pain well controlled with tylenol Discharged on xarelto for total of 28 days (2) Acute UTI: E. coli on urine culture Completed antibiotic therapy (3) Chronic ITP (idiopathic thrombocytopenia): No acute bleeding issues Platelet is 99 today Monitor platelet count (4) Dementia: No acute issues Monitor (5) Ambulatory dysfunction: Wheelchair-bound at baseline (6) Diabetes: A1c 5.2 Monitor blood glucose and optimize control (7) Paranoid schizophrenia in remission: Continue home medications Monitor for delirium Reorient frequently (8) Hypertension: Poorly controlled Started on amlodipine during this admission Continue home metoprolol Monitor BP Hypokalemia- Resolved DVT Prophylaxis: On xarelto Code Status DNI/DNR Daughter: Jalyn Hernandez: [phone]; [phone] Total Time Total Time Spent Total Time Spent (In Minutes): 25 Total Time Includes: Examination of the Patient, Discharge Planning and Medication Reconciliation Discharge Plan Discharge Items Patient Disposition: Transfer [facility] Reason For Visit: FALL Discharge Diagnosis: Fall Right hip displaced subcapital femoral neck fracture S/P right hemiarthroplasty E. coli UTI Condition on Discharge: Good Activity: Per Instructions section Non-emergency contact: Surgeon Call non-emergency contact if: your pain is not controlled, your temperature is above 101.5, your wound has increased redness and your wound has increased drainage Follow-up/Referrals: Carlee Waterman [Primary Care Provider] - Epifanio Horton M.D. [Physician] - Lewis Attending Provider Instructions: Ms Wright You presented to the hospital after a fall and found to have a displaced right femoral fracture For this you had surgery (Right hemiarthroplasty). During your stay, your hypertension was noted to be poorly controlled. You were started on amlodipine for blood pressure. You also had a urinary tract infection which you have completed antibiotics for. It is important that you continue to get frequent blood glucose monitoring for your diabetes. Things to Watch Out For -Go to the Emergency Room if you have sudden onset of chest pain, shortness of breath, or uncontrollable pain. -Call the clinic immediately if you have a sudden increase in the amount of wound drainage or the drainage becomes thick, yellow or green, or foul-smelling. -For routine questions, call the clinic at [phone] during regular business hours (8am-5pm). For urgent issues after regular business hours, you may call the clinic to be connected to the on-call physician. Dressings -Keep your dressings clean, dry, and in place for 4 days. After 4 days, you may remove the dressing and cover the incision with a new clean dressing. Be sure to wash your hands thoroughly before touching your incisions. Apply a new dressing daily thereafter. -You may begin showering after your first dressing change (4 days after surgery). You may let the water run BRIEFLY over the incision, but do not soak the incision in the bathtub or pool for 2 weeks. You may also gently clean the incision with mild soap and water; pat the incision dry after cleaning-do not rub the incision. -You may use an antibiotic ointment (Bacitracin, Polysporin) if desired, but this is not necessary. Weight Bearing -You may weight bear as tolerated on your operative leg. Use a walker for support and balance. Total Hip Precautions -Do not cross your legs, flex your hip past 90 degrees, or internally rotate your hip. -Keep the abduction pillow in place when you are in bed for the first 6 weeks after surgery. You may remove it when you are out of bed. -If you hear a clunk and your leg is suddenly much shorter and turned inward compared to your other leg, come to the Emergency Department immediately. Xarelto (rivaroxaban) -Take one tablet by mouth every day -Do not take Aspirin or Plavix while taking Xarelto. If you were taking either of these medicines before surgery, you may resume your normal dose after you complete the 28-day course of Xarelto. -Be aware that you will bruise easier while taking Xarelto; this is normal. However, if you develop a significantly large area of swelling after an injury, or have a cut that will not stop bleeding, call the clinic or go to the Emergency Room immediately. Pending Studies at Discharge: No Stand-Alone Forms: My [facility] Skilled Items Patient informed of condition?: Yes DNR: Yes Discharge Level of Care: Skilled Communicable Disease: No Discharge Prognosis: Stable Lines: None Urinary Catheter: No Medications and DC Order Prescriptions: New Xarelto 10 mg Tablet 10 mg PO DAILY 26 Days Qty: 26 RF: 0 amlodipine [Norvasc] 5 mg Tablet 10 mg PO QAM 30 Days Qty: 60 RF: 0 Continued Furosemide (Lasix) 40 MG tablet 40 mg PO DAILY Qty: 0 RF: 0 DIPHENHYDRAMINE HCL (BENADRYL) 25 MG capsule 25 mg PO Q8 PRNQty: 0 RF: 0 potassium chloride 20 mEq/15 mL liquid 15 meq/kg PO BID RF: 0 Ah Gel gel 1 applic topical DAILY RF: 0 acetaminophen 325 mg Tablet 650 mg PO Q6H PRN (Reason: Fever Or Pain) RF: 0 magnesium hydroxide [Milk of Magnesia] 400 mg/5 mL Suspension 30 ml PO UD PRN (Reason: Constipation) RF: 0 bisacodyl 10 mg Suppository 10 mg OH UD PRN (Reason: Constipation) RF: 0 Fleet Enema 19-7 gram/118 mL Enema 118 ml OH UD PRN (Reason: Constipation) RF: 0 nitroglycerin 0.4 mg Tablet, Sublingual 0.4 mg sublingual UD PRN (Reason: Chest Pain) RF: 0 metoprolol tartrate 25 mg tablet 25 mg PO BID RF: 0 Levemir U-100 Insulin 100 unit/mL solution 10 unit SUBCUT DAILY RF: 0 cholecalciferol (vitamin D3) 400 unit Tablet,Chewable 400 unit PO DAILY RF: 0 Beneprotein 6 gram-25 kcal/7 gram Powder 1 ea PO DAILY RF: 0 Multiple Vitamin, Womens 1 tab PO DAILY RF: 0 compound vehicle susp SF no.25 RF: 0 Discharge Orders: Discharge Order (Routine); Ordered 06/12/19 Ordered By: Nidia Barreto Admission Data Admit Date/Time: 06/07/19 11:09 Attending Provider: Nidia Barreto I. Admit Provider: Rashel Aquino Primary Care Provider: Carlee Waterman Other Providers: Rashel Aquino ; Abhijit Sethi ; Epifanio Horton ; [facility] ; [facility], Other Interventions: Discharge Summary Assessment (RN) Last Done: 06/12/19 13:29 DC Date/Time DO NOT enter until pt leaves facility: 06/12/19 14:32
== END 2019-06-12 14:32 | DRG 470 ==
LOC: ED 08:32 → SUATTDRO 11:09 → 3N 11:09

== ENCOUNTER 2019-06-17 21:40 | Inpatient (IN) ==
[2019-06-17] MEDS ORDERED: SODIUM CHLORIDE 0.9% 1000ML 1,000 ML IV ONE ×2 (21:59→23:13)
[2019-06-17] MEDS ORDERED: PIPERACILL/TAZOBAC CONSULT ACTIVE PRN (21:59)
[2019-06-17] MEDS ORDERED: PIPERACILLIN/TAZOBACTAM 4.5 GM/120 ML BAG IV ONE (21:59)
--- NOTE | 2019-06-17 22:37 | XRay Report ---
XR chest 1V portable HISTORY: Sepsis COMPARISON: Chest 05/30/2019. FINDINGS: The lungs are clear. Cardiac silhouette is normal in size. No pleural effusions. No pneumot horax. IMPRESSION: No acute process. Electronically signed by: Lukasz Vergara M.D. 06/17/2019 10:36 PM
[2019-06-17 22:42] LABS: Hematocrit (blood only) 35.6 % (37-47); Hemoglobin 10.9 g/dL (12.0-16.0); Mean Corpuscular Hemoglobin 32.4 pg (25-34); Mean Corpuscular Hgb Conc 30.6 g/dL (32-36); Mean Platelet Volume 12.1 fL (7.4-10.4); Nucleated RBC # (auto) 0.06 K/uL (0-0); Nucleated RBC % (auto) 0.2 %; Platelet Count 172 K/uL (130-400); RDW Coefficient of Variation 14.2 % (11.5-14.5); RDW Standard Deviation 53.7 fL (36.4-46.3); Red Blood Count 3.36 M/uL (4.2-5.4); White Blood Count 23.46 K/uL (4.8-10.8)
[2019-06-17 22:47] LABS: Base Excess VBG 5.5 mEq/L; pH VBG 7.44 (7.36-7.41)
--- NOTE | 2019-06-17 22:49 | Emergency Department Note ---
Entered by Zunilda Chanel acting as a scribe for Cirilo Lara DO History of Present Illness General Chief complaint: Altered Mental Status Stated complaint: AMS, TREMORS, AGITATION Source: patient and other (ED nurses) History of Present Illness Onset (ago): unknown Location: head (AMS) Associated symptoms: + other (lethargy, arm tremors ) The patient is an 83 year old female with a history of CAD, HTN, DM, paranoid schizophrenia in remission, dementia, and recent right hip surgery who presents to the Emergency Room for evaluation of altered mental status. ED nurses report that the patient had right hip surgery last week and has been lethargic ever since. They also report that she has tremors in her arms. She presents with tachycardia, hypotension, and an elevated white blood cell count noted from earlier. HPI is limited due to the patient's altered mental status. Home Medications Home Medications Medication Instructions Recorded Confirmed Type 0.9% Normal Salne 1,000 ml IV QS 06/17/19 06/17/19 History Ah Gel 1 applic TOPICAL DAILY 06/17/19 06/17/19 History Medihoney Paste 1 applic TOPICAL QS 06/17/19 06/17/19 History acetaminophen [Tylenol] 650 mg PO Q6H PRN 06/17/19 06/17/19 History amlodipine [Norvasc] 10 mg PO DAILY 06/17/19 06/17/19 History ceftriaxone 1 g IM DAILY 06/17/19 06/17/19 History cholecalciferol (vitamin D3) 400 unit PO QAM 06/17/19 06/17/19 History [Vitamin D3] furosemide [Lasix] 40 mg PO DAILY 06/17/19 06/17/19 History insulin detemir U-100 [Levemir 15 unit SUBCUT HS 06/17/19 06/17/19 History U-100 Insulin] magnesium hydroxide [Milk of 15 ml PO DAILY PRN 06/17/19 06/17/19 History Magnesia] metoprolol tartrate 25 mg PO BID 06/17/19 06/17/19 History multivitamin 1 tab PO DAILY 06/17/19 06/17/19 History nitroglycerin [Nitrostat] 0.4 mg SUBLINGUAL UD PRN 06/17/19 06/17/19 History potassium chloride 15 meq PO BID 06/17/19 06/17/19 History rivaroxaban [Xarelto] 10 mg PO QAM 06/17/19 06/17/19 History whey protein isolate [Beneprotein] 1 ea PO DAILY 06/17/19 06/17/19 History Allergies Allergy/AdvReac Type Severity Reaction Status Date / Time barium sulfate Allergy unknown Verified 06/17/19 22:09 benztropine Allergy unknown Verified 06/17/19 22:09 chlorpromazine Allergy unknown Verified 06/17/19 22:09 clozapine Allergy unknown Verified 06/17/19 22:09 diatrizoate meglumine Allergy Unknown Verified 06/17/19 22:09 diatrizoate sodium Allergy unknown Verified 06/17/19 22:09 gadodiamide Allergy unknown Verified 06/17/19 22:09 iodine Allergy unknown Verified 06/17/19 22:09 iodixanol Allergy unknown Verified 06/17/19 22:09 sulfamethoxazole Allergy Unknown Verified 06/17/19 22:09 [From Bactrim] trimethoprim [From Bactrim] Allergy Unknown Verified 06/17/19 22:09 Past Med/Surg History Medical History CVA (cerebral vascular accident) Displaced fracture of right femoral neck Family History Unknown No significant family history Social History Preferred Language: Jamaican Communication Ability: Impaired Feeder Associate Required: No Beliefs That Will Affect Care: None Current Living Situation: Shelter Current Living Situation Comment: from [facility] [place] [facility] Feels Safe at Home: Yes Smoking Status: Unknown if ever smoked Hx Alcohol Use: No Hx Substance Use: No Review of Systems Unobtainable due to cognitive status ROS is limited due to the patient's altered mental status. Physical Exam Vital Signs Vital Signs - 24 hr 06/17/19 21:53 06/17/19 22:27 06/17/19 22:35 Temperature 36.7 C Temperature Source Oral Pulse Rate 122 H Pulse Rate [Finger] 109 H Respiratory Rate 22 20 Blood Pressure 82/56 L Blood Pressure [Right Arm] 120/67 Blood Pressure Mean 64 Blood Pressure Mean [Right Arm] 84 Pulse Oximetry 95 95 95 Oxygen Delivery Method Room Air Nasal Cannula Oxymask Oxygen Flow Rate 2 Sepsis Recent Fever Within 48 Hours No Sepsis Action Taken by Nursing No Action Required GENERAL: The patient is listless and slow to respond to questions. She does follow some simple commands. EYES: The conjunctivae are clear. The pupils are round and reactive. EARS, NOSE, MOUTH AND THROAT: The nose is without any evidence of any deformity. Mucous membranes are dry. NECK: The neck is nontender and supple. RESPIRATORY: Shallow respirations were noted. There are faint rales noted throughout. CARDIOVASCULAR: Tachycardic rate with regular rhythm was noted. No definite murmurs noted. GASTROINTESTINAL: The abdomen is soft. Abdomen is nontender. MUSCULOSKELETAL/EXTREMITIES: There is no evidence of gross deformity full range of motion is noted in the hips and shoulders. SKIN: Skin was warm and dry. Pulses are symmetric in both feet. There is a postoperative site noted on the right lateral hip. There is no erythema or drainage noted. NEUROLOGIC: Patient is able to follow simple commands. The patient appears to have symmetric but diminished strength bilaterally. Course Course 215: Past medical records reviewed. The patient was evaluated in room C03. A complete history and physical exam was performed. 2349: [facility]. Administered Medications Sodium Chloride (1/2 Nss) 1,000 mls @ 500 mls/hr IV .Q2H JUNO Stop: 07/17/19 23:44 Last Admin: 06/18/19 00:14 Dose: 500 mls/hr Documented by: [id number] Discontinued Medications Sodium Chloride (Nss 1000ml) 1,000 mls @ 999 mls/hr IV .Q1H1M ONE Stop: 06/17/19 22:59 Last Infusion: 06/17/19 23:18 Dose: 0 mls/hr Documented by: [id number] Admin: 06/17/19 22:14 Dose: 999 mls/hr Documented by: [id number] Piperacillin Sod/Tazobactam Sod (Zosyn) 4.5 gm in 120 mls @ 240 mls/hr IV NOW ONE Stop: 06/17/19 22:28 Last Infusion: 06/17/19 22:55 Dose: 0 mls/hr Documented by: [id number] Admin: 06/17/19 22:14 Dose: 240 mls/hr Documented by: [id number] Sodium Chloride (Nss 1000ml) 1,000 mls @ 999 mls/hr IV .Q1H1M ONE Stop: 06/18/19 00:13 Last Admin: 06/17/19 23:25 Dose: 999 mls/hr Documented by: [id number] Lactated Ringer's (Lr) 1,000 mls @ 999 mls/hr IV .Q1H1M ONE Stop: 06/18/19 00:13 Last Infusion: 06/17/19 23:55 Dose: 0 mls/hr Documented by: [id number] Admin: 06/17/19 23:28 Dose: 999 mls/hr Documented by: [id number] Critical Care Time Critical Care Time: Yes Total Critical Care Time: 60 I have personally spent greater than 60 minutes of critical care time in the direct management of this patient. This includes bedside care, interpretation of diagnostic studies, and testing, discussion with consultants, patient, and family members, and other required patient management activities. This 60 minutes is in excess of all separately billable procedures. Medical Decision Making Differential Diagnosis Differential diagnosis includes but is not limited to etiologies such as metabolic, infection, hypoglycemia, electrolyte abnormalities, cardiac sources, intracerebral event, toxicologic, neurologic, as well as others were entertained. Medical Records Attestation: I reviewed the patient's medical records. Home Medications Current Medication List: was personally reviewed by me Laboratory Data Attestation: I reviewed the patient's lab results. Result diagrams: 06/17/19 22:32 06/17/19 22:32 Lab Results 06/17/19 06/17/19 06/17/19 Range/Units 22:32 22:32 22:32 WBC 23.46 H (4.8-10.8) K/uL RBC 3.36 L (4.2-5.4) M/uL Hgb 10.9 L (12.0-16.0) g/dL Hct 35.6 L (37-47) % MCV 106.0 H (80-100) fL MCH 32.4 (25-34) pg MCHC 30.6 L (32-36) g/dL RDW Std Deviation 53.7 H (36.4-46.3) fL RDW Coeff of Catia 14.2 (11.5-14.5) % Plt Count 172 (130-400) K/uL MPV 12.1 H (7.4-10.4) fL Immature Gran % (Auto) 0.7 % Neut % (Auto) 86.3 % Lymph % (Auto) 9.0 % [place] % (Auto) 3.9 % Eos % (Auto) 0.0 % Baso % (Auto) 0.1 % Immature Gran # (Auto) 0.16 H (0.00-0.02) K/uL Neut # (Auto) 20.25 H (1.4-6.5) K/uL Lymph # (Auto) 2.11 (1.2-3.4) K/uL [place] # (Auto) 0.92 H (0.11-0.59) K/uL Eos # (Auto) 0.00 (0-0.5) K/uL Baso # (Auto) 0.02 (0-0.2) K/uL Absolute Nucleated RBC 0.06 H (0-0) K/uL Nucleated RBC % (auto) 0.2 % Hypogranular Neuts 1+ ESR (0-21) mm/hr PT 13.3 H (9.0-12.0) Seconds INR 1.3 H (0.9-1.1) APTT 23.7 (21.0-31.0) Seconds PTT Ratio 0.9 VBG pH (7.36-7.41) VBG pCO2 (38-50) mmHg VBG pO2 mmHg VBG HCO3 mmol/L VBG O2 Saturation % VBG Base Excess mEq/L Barometric Pressure mm/Hg Sodium 167 H* (136-145) mmol/L Potassium 4.7 (3.5-5.1) mmol/L Chloride 131 H (98-107) mmol/L Carbon Dioxide 28 (21-32) mmol/L Anion Gap 8.0 (3-11) BUN 112 H (7-18) mg/dl Creatinine 2.90 H D (0.6-1.2) mg/dl Est Cr Clr Drug Dosing 12.9 ml/min Est GFR ( Amer) 16.8 Est GFR (Non-Af Amer) 14.5 BUN/Creatinine Ratio 38.7 H (10-20) Glucose 431 H* (70-99) mg/dl Lactate (0.4-2.0) mmol/L Calcium 8.9 (8.5-10.1) mg/dl Magnesium 2.9 H (1.8-2.4) mg/dl Total Bilirubin 0.9 (0.2-1) mg/dl AST 40 H (15-37) U/L ALT 36 (12-78) U/L Alkaline Phosphatase 100 (45-117) U/L Troponin I (0-0.045) ng/ml C-Reactive Protein 10.70 H (0-0.29) mg/dl Total Protein 6.2 L (6.4-8.2) gm/dl Albumin 2.4 L (3.4-5.0) gm/dl Globulin 3.8 (2.5-4.0) gm/dl Beta-Hydroxybutyric Acd 2.56 (0.2-2.81) mg/dl Procalcitonin (0-0.5) ng/ml TSH 0.293 L (0.300-4.500) uIu/ml Free T4 1.44 (0.8-1.6) ng/dl Urine Color Urine Appearance (Clear) Urine pH (4.5-7.5) Ur Specific [place] (1.000-1.030) Urine Protein (Negative) Urine Glucose (UA) (Negative) Urine Ketones (Negative) Urine Blood (Negative) Urine Nitrite (Negative) Urine Bilirubin (Negative) Urine Urobilinogen (Negative) Ur Leukocyte Esterase (Negative) Urine WBC (Auto) (0-5) /hpf Urine RBC (Auto) (0-4) /hpf U Hyaline Cast (Auto) (0-5) /lpf U Epithel Cells (Auto) (0-5) /lpf Urine Bacteria (Auto) (Negative) Ur Renal Epithelial Cell (0-5) /lpf Calcium Oxalate Crystal (None Prsent) Granular Casts (0) /lpf Waxy Casts (0) /lpf 06/17/19 06/17/19 06/17/19 Range/Units 22:32 22:32 22:32 WBC (4.8-10.8) K/uL RBC (4.2-5.4) M/uL Hgb (12.0-16.0) g/dL Hct (37-47) % MCV (80-100) fL MCH (25-34) pg MCHC (32-36) g/dL RDW Std Deviation (36.4-46.3) fL RDW Coeff of Catia (11.5-14.5) % Plt Count (130-400) K/uL MPV (7.4-10.4) fL Immature Gran % (Auto) % Neut % (Auto) % Lymph % (Auto) % [place] % (Auto) % Eos % (Auto) % Baso % (Auto) % Immature Gran # (Auto) (0.00-0.02) K/uL Neut # (Auto) (1.4-6.5) K/uL Lymph # (Auto) (1.2-3.4) K/uL [place] # (Auto) (0.11-0.59) K/uL Eos # (Auto) (0-0.5) K/uL Baso # (Auto) (0-0.2) K/uL Absolute Nucleated RBC (0-0) K/uL Nucleated RBC % (auto) % Hypogranular Neuts ESR 55 H (0-21) mm/hr PT (9.0-12.0) Seconds INR (0.9-1.1) APTT (21.0-31.0) Seconds PTT Ratio VBG pH (7.36-7.41) VBG pCO2 (38-50) mmHg VBG pO2 mmHg VBG HCO3 mmol/L VBG O2 Saturation % VBG Base Excess mEq/L Barometric Pressure mm/Hg Sodium (136-145) mmol/L Potassium (3.5-5.1) mmol/L Chloride (98-107) mmol/L Carbon Dioxide (21-32) mmol/L Anion Gap (3-11) BUN (7-18) mg/dl Creatinine (0.6-1.2) mg/dl Est Cr Clr Drug Dosing ml/min Est GFR ( Amer) Est GFR (Non-Af Amer) BUN/Creatinine Ratio (10-20) Glucose (70-99) mg/dl Lactate 3.5 H* (0.4-2.0) mmol/L Calcium (8.5-10.1) mg/dl Magnesium (1.8-2.4) mg/dl Total Bilirubin (0.2-1) mg/dl AST (15-37) U/L ALT (12-78) U/L Alkaline Phosphatase (45-117) U/L Troponin I (0-0.045) ng/ml C-Reactive Protein (0-0.29) mg/dl Total Protein (6.4-8.2) gm/dl Albumin (3.4-5.0) gm/dl Globulin (2.5-4.0) gm/dl Beta-Hydroxybutyric Acd (0.2-2.81) mg/dl Procalcitonin 0.63 H (0-0.5) ng/ml TSH (0.300-4.500) uIu/ml Free T4 (0.8-1.6) ng/dl Urine Color Urine Appearance (Clear) Urine pH (4.5-7.5) Ur Specific [place] (1.000-1.030) Urine Protein (Negative) Urine Glucose (UA) (Negative) Urine Ketones (Negative) Urine Blood (Negative) Urine Nitrite (Negative) Urine Bilirubin (Negative) Urine Urobilinogen (Negative) Ur Leukocyte Esterase (Negative) Urine WBC (Auto) (0-5) /hpf Urine RBC (Auto) (0-4) /hpf U Hyaline Cast (Auto) (0-5) /lpf U Epithel Cells (Auto) (0-5) /lpf Urine Bacteria (Auto) (Negative) Ur Renal Epithelial Cell (0-5) /lpf Calcium Oxalate Crystal (None Prsent) Granular Casts (0) /lpf Waxy Casts (0) /lpf 06/17/19 06/17/19 Range/Units 22:32 22:46 WBC (4.8-10.8) K/uL RBC (4.2-5.4) M/uL Hgb (12.0-16.0) g/dL Hct (37-47) % MCV (80-100) fL MCH (25-34) pg MCHC (32-36) g/dL RDW Std Deviation (36.4-46.3) fL RDW Coeff of Catia (11.5-14.5) % Plt Count (130-400) K/uL MPV (7.4-10.4) fL Immature Gran % (Auto) % Neut % (Auto) % Lymph % (Auto) % [place] % (Auto) % Eos % (Auto) % Baso % (Auto) % Immature Gran # (Auto) (0.00-0.02) K/uL Neut # (Auto) (1.4-6.5) K/uL Lymph # (Auto) (1.2-3.4) K/uL [place] # (Auto) (0.11-0.59) K/uL Eos # (Auto) (0-0.5) K/uL Baso # (Auto) (0-0.2) K/uL Absolute Nucleated RBC (0-0) K/uL Nucleated RBC % (auto) % Hypogranular Neuts ESR (0-21) mm/hr PT (9.0-12.0) Seconds INR (0.9-1.1) APTT (21.0-31.0) Seconds PTT Ratio VBG pH 7.44 H (7.36-7.41) VBG pCO2 45 (38-50) mmHg VBG pO2 35 mmHg VBG HCO3 30 mmol/L VBG O2 Saturation 65.0 % VBG Base Excess 5.5 mEq/L Barometric Pressure 736.6 mm/Hg Sodium (136-145) mmol/L Potassium (3.5-5.1) mmol/L Chloride (98-107) mmol/L Carbon Dioxide (21-32) mmol/L Anion Gap (3-11) BUN (7-18) mg/dl Creatinine (0.6-1.2) mg/dl Est Cr Clr Drug Dosing ml/min Est GFR ( Amer) Est GFR (Non-Af Amer) BUN/Creatinine Ratio (10-20) Glucose (70-99) mg/dl Lactate (0.4-2.0) mmol/L Calcium (8.5-10.1) mg/dl Magnesium (1.8-2.4) mg/dl Total Bilirubin (0.2-1) mg/dl AST (15-37) U/L ALT (12-78) U/L Alkaline Phosphatase (45-117) U/L Troponin I (0-0.045) ng/ml C-Reactive Protein (0-0.29) mg/dl Total Protein (6.4-8.2) gm/dl Albumin (3.4-5.0) gm/dl Globulin (2.5-4.0) gm/dl Beta-Hydroxybutyric Acd (0.2-2.81) mg/dl Procalcitonin (0-0.5) ng/ml TSH (0.300-4.500) uIu/ml Free T4 (0.8-1.6) ng/dl Urine Color Dark Yellow Urine Appearance Clear (Clear) Urine pH 5.0 (4.5-7.5) Ur Specific [place] 1.023 (1.000-1.030) Urine Protein Negative (Negative) Urine Glucose (UA) 1+ H (Negative) Urine Ketones Negative (Negative) Urine Blood Negative (Negative) Urine Nitrite Negative (Negative) Urine Bilirubin Negative (Negative) Urine Urobilinogen Negative (Negative) Ur Leukocyte Esterase 1+ H (Negative) Urine WBC (Auto) 5-10 H (0-5) /hpf Urine RBC (Auto) 0-4 (0-4) /hpf U Hyaline Cast (Auto) 10-30 H (0-5) /lpf U Epithel Cells (Auto) >30 H (0-5) /lpf Urine Bacteria (Auto) Negative (Negative) Ur Renal Epithelial Cell 0-5 (0-5) /lpf Calcium Oxalate Crystal Present A (None Prsent) Granular Casts 1-5 H (0) /lpf Waxy Casts 1-5 H (0) /lpf Imaging Data Radiologist's Impression: Radiology results as stated below per my review and the radiologist's interpretation: XR chest 1V portable HISTORY: Sepsis COMPARISON: Chest 05/30/2019. FINDINGS: The lungs are clear. Cardiac silhouette is normal in size. No pleural effusions. No pneumothorax. IMPRESSION: No acute process. Electronically signed by: Lukasz Vergara M.D. 06/17/2019 10:36 PM ECG Data Attestation: I personally reviewed and interpreted this ECG as follows: Indication: + altered mental status Rate (beats per minute): 123 Rhythm: + sinus tachycardia ECG ST segments: + ST depression (inferior and lateral ) ECG Findings: no PACs and no PVCs Comparison ECG Date: from (06/11/19) Change: no significant change Blood Pressure Blood Pressure Findings: Low blood pressure Blood Pressure Disposition: further management by hospitalist ADDIE Narrative The patient is an 83-year-old female who is status post right knee replacement who presented to the emergency department from a snf for an evaluation of altered mental status. The patient was found to have very significant dehydration. She had a very high sodium and a very high glucose. The patient had laboratory studies done from the snf earlier today. The patient has very severe signs of dehydration and renal insufficiency. She was treated with IV fluids and IV empiric antibiotics. The patient was placed on supplemental oxygen. She continues to have alteration in her mental status while she is in the emergency department. I discussed the patient's laboratory and radiographic studies with the on-call [facility] hospitalist. I reviewed the patient's previous electronic medical records. The patient was somewhat improved on reevaluation. Impression & Plan AMS (altered mental status), Sepsis, Dehydration, YFN (acute kidney injury), Hyperglycemia, Hypoxia Discharge Plan Visit Data Chief Complaint: Altered Mental Status Stated Complaint: AMS, TREMORS, AGITATION ED Provider: Cirilo Lara Discharge Problem: AMS (altered mental status), Sepsis, Dehydration, YFN (acute kidney injury), Hyperglycemia, Hypoxia Patient Disposition: Being Evaluated by Hospitalist Forms Stand Alone Forms: My [facility] Prescriptions Prescriptions: No Action 0.9% Normal Salne 1,000 ml IV QS RF: 0 Ah Gel 1 applic topical DAILY RF: 0 multivitamin Tablet 1 tab PO DAILY RF: 0 furosemide [Lasix] 40 mg tablet 40 mg PO DAILY RF: 0 potassium chloride 20 mEq/15 mL liquid 15 meq PO BID RF: 0 ceftriaxone 1 gram Recon Soln 1 g IM DAILY RF: 0 magnesium hydroxide [Milk of Magnesia] 400 mg/5 mL Suspension 15 ml PO DAILY PRN (Reason: Constipation) RF: 0 amlodipine [Norvasc] 10 mg tablet 10 mg PO DAILY RF: 0 nitroglycerin [Nitrostat] 0.4 mg Tablet, Sublingual 0.4 mg sublingual UD PRN (Reason: CHEST PAIN) RF: 0 cholecalciferol (vitamin D3) [Vitamin D3] 400 unit Capsule 400 unit PO QAM RF: 0 metoprolol tartrate 25 mg tablet 25 mg PO BID RF: 0 Levemir U-100 Insulin 100 unit/mL solution 15 unit SUBCUT HS RF: 0 acetaminophen [Tylenol] 325 mg Capsule 650 mg PO Q6H PRN (Reason: Fever Or Pain) RF: 0 Xarelto 10 mg tablet 10 mg PO QAM RF: 0 Beneprotein 6 gram-25 kcal/7 gram Powder 1 ea PO DAILY RF: 0 Medihoney Paste 1 applic topical QS RF: 0 Referrals Referrals: Carlee Waterman [Primary Care Provider] - Discharge Problem: AMS (altered mental status) Qualifiers: Altered mental status type: unspecified Qualified Code(s): R41.82 - Altered mental status, unspecified Sepsis Qualifiers: Sepsis type: sepsis due to unspecified organism Sepsis acute organ dysfunction status: unspecified Qualified Code(s): A41.9 - Sepsis, unspecified organism The scribe's documentation has been prepared under my direction and personally reviewed by me in its entirety. I confirm that the note above accurately reflects all work, treatment, procedures, and medical decision making performed by me.
[2019-06-17 22:57] LABS: INR 1.3 (0.9-1.1); Partial Thromboplastin Ratio 0.9; Partial Thromboplastin Time 23.7 Seconds (21.0-31.0); Prothrombin Time 13.3 Seconds (9.0-12.0)
[2019-06-17 23:00] LABS: Basophils # (auto) 0.02 K/uL (0-0.2); Basophils % (auto) 0.1 %; Hypogranular Neutrophils 1+; Immature Granulocytes # (auto) 0.16 K/uL (0.00-0.02); Immature Granulocytes % (auto) 0.7 %; Lymphocytes # (auto) 2.11 K/uL (1.2-3.4); Monocytes # (auto) 0.92 K/uL (0.11-0.59); Monocytes % (auto) 3.9 %; Neutrophils # (auto) 20.25 K/uL (1.4-6.5); Neutrophils % (auto) 86.3 %
[2019-06-17 23:02] LABS: Appearance Urine Clear (Clear); Bacteria Urine Automated Negative (Negative); Bilirubin Urine Negative (Negative); Blood Urine Negative (Negative); Color Urine Dark Yellow; Epithelial Cell Urine Auto >30 /lpf (0-5); Glucose Urine UA 1+ (Negative); Ketones Urine Negative (Negative); Leukocyte Esterase Urine 1+ (Negative); Nitrite Urine Negative (Negative); Protein Urine Negative (Negative); RBC Urine Automated 0-4 /hpf (0-4); Specific Gravity Urine 1.023 (1.000-1.030); Urobilinogen Urine Negative (Negative)
[2019-06-17 23:04] LABS: Albumin Level 2.4 gm/dl (3.4-5.0); BUN Creatinine Ratio 38.7 (10-20); Bilirubin,Total 0.9 mg/dl (0.2-1); C Reactive Protein 10.7 mg/dl (0-0.29); Calcium 8.9 mg/dl (8.5-10.1); Creatinine Clr Calc Pharmacy 12.9 ml/min; Est GFR (African American) 16.8; Est GFR (Non-African American) 14.5; Globulin 3.8 gm/dl (2.5-4.0); Potassium 4.7 mmol/L (3.5-5.1); Total Protein 6.2 gm/dl (6.4-8.2)
[2019-06-17] MEDS ORDERED: LACTATED RINGER'S 1,000 ML IV ONE (23:13)
[2019-06-17 23:19] LABS: Calcium Oxalate Crystals Urine Present (None Prsent); Renal Epithelial Cells Urine 0-5 /lpf (0-5)
[2019-06-17] MEDS ORDERED: VANCOMYCIN HCL 1,000 MG in SODIUM CHLORIDE 0.9% 500 ML IV ONE (23:24)
[2019-06-17] MEDS ORDERED: VANCOMYCIN CONSULT ACTIVE PRN (23:24)
[2019-06-17 23:37] LABS: Beta-Hydroxybutyrate 2.56 mg/dl (0.2-2.81)
[2019-06-17] MEDS ORDERED: SODIUM CHLORIDE 0.45 % 1,000 ML IV SCH (23:45)
[2019-06-18 00:07] LABS: Thyroid Stimulating Hormone 0.293 uIu/ml (0.300-4.500)
[2019-06-18 00:26] LABS: Magnesium 2.9 mg/dl (1.8-2.4); T4 Free Thyroxine 1.44 ng/dl (0.8-1.6)
[2019-06-18] MEDS ORDERED: ALBUMIN 25% 50 ML IV ONE (01:10)
[2019-06-18 01:15] LABS: Troponin I 0.16 ng/ml (0-0.045)
[2019-06-18 01:16] LABS: Albumin Globulin Ratio 0.6 (0.9-2)
--- NOTE | 2019-06-18 01:59 | History & Physical Report ---
Date of Service June 18, 2019 Assessment & Plan (1) Encephalopathy: Delirium on dementia History paranoid schizophrenia as per records Multifactorial : Severe sepsis (SIRS plus ARF plus lactic acidosis plus encephalopathy) possibly secondary to postop infection, recent right hip fracture surgery Hypernatremia, ARF secondary to poor p.o. intake, illness Hyperglycemic crisis, unclear cause (hx DM 2 diet-controlled, well-controlled as of recent hemoglobin A1c of 5.2, May 2019) CAD/CVA as per records hypertension, BP on the lower side chronic anemia, hemoglobin better than baseline likely secondary to hemoconcentration chronic thrombocytopenia, platelets currently within normal limits likely secondary to hemoconcentration Medical telemetry Cultures, IV Daptomycin, Zosyn for now Follow official CT abdomen pelvis results Orthopedics consult RE possible postop infection N.p.o. for now in anticipation of procedure Half-normal NS, follow lactic acid Follow renal function, hold home diuretic for now Nephrology consult RE hypernatremia IV insulin, recheck hemoglobin A1c DVT prophylaxis. Heparin subcu DNR as per daughter/POA, . Jalyn Hernandez. She requests updates from providers thru [id number] [id number]. History of Present Illness Chief Complaint: Altered mental status as per records Primary Care Provider: Carlee Waterman History obtained from family, and records. Limited history from patient secondary to dementia. Medical history significant for dementia, schizophrenia, CAD/CVA as per records, hypertension, hyperlipidemia, DM 2 diet-controlled, chronic anemia (baseline hemoglobin of 10), chronic thrombocytopenia, recent hip fracture right status post surgery currently on Xarelto for DVT prophylaxis. Recent confinement June 07 to June 12, 2019 for right hip fracture secondary to mechanical fall status post surgery. E. coli UTI found during confinement status post antibiotic Rx. [facility] to [facility] on Xarelto for postop DVT prophylaxis. Patient not eating too well upon return to [facility] as per daughter. Outpatient serum sodium noted to be gradually increasing since discharge from 149 (06/13) to 167 (06/17). Outpatient serum creatinine noted to be 2.12 with outpatient blood work yesterday from normal baseline. NSS, IV ceftriaxone started at [facility]. Patient brought to the ER for increased agitation, O2 sats noted to be 70s on room air at [facility]. SBP noted to be 80s upon arrival at the ER. O2 sats 95 on room air. At the ER, patient received Vancomycin and Zosyn for sepsis. Medical History as above Surgical History : Right hip surgery Family History : Could not be obtained Personal/Social history : prison resident Allergies Allergy/AdvReac Type Severity Reaction Status Date / Time barium sulfate Allergy unknown Verified 06/17/19 22:09 benztropine Allergy unknown Verified 06/17/19 22:09 chlorpromazine Allergy unknown Verified 06/17/19 22:09 clozapine Allergy unknown Verified 06/17/19 22:09 diatrizoate meglumine Allergy Unknown Verified 06/17/19 22:09 diatrizoate sodium Allergy unknown Verified 06/17/19 22:09 gadodiamide Allergy unknown Verified 06/17/19 22:09 iodine Allergy unknown Verified 06/17/19 22:09 iodixanol Allergy unknown Verified 06/17/19 22:09 sulfamethoxazole Allergy Unknown Verified 06/17/19 22:09 [From Bactrim] trimethoprim [From Bactrim] Allergy Unknown Verified 06/17/19 22:09 Home Medications Home Medications Medication Instructions Recorded Confirmed Type 0.9% Normal Salne 1,000 ml IV QS 06/17/19 06/17/19 History Ah Gel 1 applic TOPICAL DAILY 06/17/19 06/17/19 History Medihoney Paste 1 applic TOPICAL QS 06/17/19 06/17/19 History acetaminophen [Tylenol] 650 mg PO Q6H PRN 06/17/19 06/17/19 History amlodipine [Norvasc] 10 mg PO DAILY 06/17/19 06/17/19 History ceftriaxone 1 g IM DAILY 06/17/19 06/17/19 History cholecalciferol (vitamin D3) 400 unit PO QAM 06/17/19 06/17/19 History [Vitamin D3] furosemide [Lasix] 40 mg PO DAILY 06/17/19 06/17/19 History insulin detemir U-100 [Levemir 15 unit SUBCUT HS 06/17/19 06/17/19 History U-100 Insulin] magnesium hydroxide [Milk of 15 ml PO DAILY PRN 06/17/19 06/17/19 History Magnesia] metoprolol tartrate 25 mg PO BID 06/17/19 06/17/19 History multivitamin 1 tab PO DAILY 06/17/19 06/17/19 History nitroglycerin [Nitrostat] 0.4 mg SUBLINGUAL UD PRN 06/17/19 06/17/19 History potassium chloride 15 meq PO BID 06/17/19 06/17/19 History rivaroxaban [Xarelto] 10 mg PO QAM 06/17/19 06/17/19 History whey protein isolate [Beneprotein] 1 ea PO DAILY 06/17/19 06/17/19 History Past Med/Surg History Medical History (Updated 06/18/19 @ 13:16 by VARUN Clark) Agitation Ambulatory dysfunction (Acute) Chronic ITP (idiopathic thrombocytopenia) CVA (cerebral vascular accident) Diabetes Displaced fracture of right femoral neck Hypertension Palliative care encounter Paranoid schizophrenia in remission Surgical History History of right hip hemiarthroplasty Family History Unknown No significant family history Social History Preferred Language: Bermudian Communication Ability: Impaired Managing Consultant Clinical Professor Required: No Beliefs That Will Affect Care: None Current Living Situation: Half-Way Current Living Situation Comment: [place] Feels Safe at Home: Yes Smoking Status: Unknown if ever smoked Hx Alcohol Use: No Hx Substance Use: No Review of Systems Review of Systems: Could not be reliably obtained Physical Exam Physical Exam: GENERAL: Demented, uncomfortable, no respiratory distress SKIN: Pallor , warm HEENT: Pale palpebral conjunctivae, no ptosis, dry buccal mucosa, nasal cannula in place NECK : Supple, no tenderness CHEST : Decreased effort , no tenderness HEART : Tachycardic , no obvious murmurs ABDOMEN: Some distention, nontender EXTREMITIES : Dressing over right hip, minimal right hip tenderness, no other conspicuous deformities noted NEUROLOGIC : Demented, no facial asymmetry, no other gross focality Results & Data Vital Signs (Past 12 Hours) Vital Signs Temp Pulse Pulse Resp BP BP Pulse Ox 06/18/19 01:30 99 H 18 116/61 100 06/17/19 22:35 109 H 20 120/67 95 06/17/19 22:27 95 06/17/19 21:53 36.7 C 122 H 22 82/56 L 95 Laboratory Results Laboratory Results WBC 23.46 K/uL (4.8-10.8) H 06/17/19 22:32 RBC 3.36 M/uL (4.2-5.4) L 06/17/19 22:32 Hgb 10.9 g/dL (12.0-16.0) L 06/17/19 22:32 Hct 35.6 % (37-47) L 06/17/19 22:32 MCV 106.0 fL (80-100) H 06/17/19 22:32 MCH 32.4 pg (25-34) 06/17/19 22:32 MCHC 30.6 g/dL (32-36) L 06/17/19 22:32 RDW Std Deviation 53.7 fL (36.4-46.3) H 06/17/19 22:32 RDW Coeff of Catia 14.2 % (11.5-14.5) 06/17/19 22:32 Plt Count 172 K/uL (130-400) 06/17/19 22: MPV 12.1 fL (7.4-10.4) H 06/17/19 22:32 Immature Gran % (Auto) 0.7 % 06/17/19 22:32 Neut % (Auto) 86.3 % 06/17/19 22:32 Lymph % (Auto) 9.0 % 06/17/19 22:32 [place] % (Auto) 3.9 % 06/17/19 22:32 Eos % (Auto) 0.0 % 06/17/19 22:32 Baso % (Auto) 0.1 % 06/17/19:32 Immature Gran # (Auto) 0.16 K/uL (0.00-0.02) H 06/17/19 22:32 Neut # (Auto) 20.25 K/uL (1.4-6.5) H 06/17/19 22:32 Lymph # (Auto) 2.11 K/uL (1.2-3.4) 06/17/19 22:32 [place] # (Auto) 0.92 K/uL (0.11-0.59) H 06/17/19 22:32 Eos # (Auto) 0.00 K/uL (0-0.5) 06/17/19 22:32 Baso # (Auto) 0.02 K/uL (0-0.2) 06/17/19 22:32 Absolute Nucleated RBC 0.06 K/uL (0-0) H 06/17/19 22:32 Nucleated RBC % (auto) 0.2 % 06/17/19 22:32 Hypogranular Neuts 1+ 06/17/19 22:32 ESR 55 mm/hr (0-21) H 06/17/19 22:32 PT 13.3 Seconds (9.0-12.0) H 06/17/19 22:32 INR 1.3 (0.9-1.1) H 06/17/19 22:32 APTT 23.7 Seconds (21.0-31.0) 06/17/19 22:32 PTT Ratio 0.9 06/17/19 22:32 VBG pH 7.44 (7.36-7.41) H 06/17/19 22:32 VBG pCO2 45 mmHg (38-50) 06/17/19 22:32 VBG pO2 35 mmHg 06/17/19 22:32 VBG HCO3 30 mmol/L 06/17/19 22:32 VBG O2 Saturation 65.0 % 06/17/19 22:32 VBG Base Excess 5.5 mEq/L 06/17/19 22:32 Barometric Pressure 736.6 mm/Hg 06/17/19 22:32 Sodium 167 mmol/L (136-145) H* 06/17/19 22:32 Potassium 4.7 mmol/L (3.5-5.1) 06/17/19 22:32 Chloride 131 mmol/L (98-107) H 06/17/19 22:32 Carbon Dioxide 28 mmol/L (21-32) 06/17/19 22:32 Anion Gap 8.0 (3-11) 06/17/19 22:32 BUN 112 mg/dl (7-18) H 06/17/19 22:32 Creatinine 2.90 mg/dl (0.6-1.2) H D 06/17/19 22:32 Est Cr Clr Drug Dosing 12.9 ml/min 06/17/19 22:32 Est GFR ( Amer) 16.8 06/17/19 22:32 Est GFR (Non-Af Amer) 14.5 06/17/19 22:32 BUN/Creatinine Ratio 38.7 (10-20) H 06/17/19 22:32 Glucose 431 mg/dl (70-99) H* 06/17/19 22:32 Lactate 3.2 mmol/L (0.4-2.0) H* 06/18/19 00:29 Calcium 8.9 mg/dl (8.5-10.1) 06/17/19 22:32 Magnesium 2.9 mg/dl (1.8-2.4) H 06/17/19 22:32 Total Bilirubin 0.9 mg/dl (0.2-1) 06/17/19 22:32 AST 40 U/L (15-37) H 06/17/19 22:32 ALT 36 U/L (12-78) 06/17/19 22:32 Alkaline Phosphatase 100 U/L (45-117) 06/17/19 22:32 Troponin I 0.160 ng/ml (0-0.045) H* 06/17/19 22:32 C-Reactive Protein 10.70 mg/dl (0-0.29) H 06/17/19 22:32 Total Protein 6.2 gm/dl (6.4-8.2) L 06/17/19 22:32 Albumin 2.4 gm/dl (3.4-5.0) L 06/17/19 22:32 Globulin 3.8 gm/dl (2.5-4.0) 06/17/19 22:32 Albumin/Globulin Ratio 0.6 (0.9-2) L 06/17/19 22:32 Beta-Hydroxybutyric Acd 2.56 mg/dl (0.2-2.81) 06/17/19 22:32 Procalcitonin 0.63 ng/ml (0-0.5) H 06/17/19 22:32 TSH 0.293 uIu/ml (0.300-4.500) L 06/17/19 22:32 Free T4 1.44 ng/dl (0.8-1.6) 06/17/19 22:32 Urine Color Dark Yellow 06/17/19 22:46 Urine Appearance Clear (Clear) 06/17/19 22:46 Urine pH 5.0 (4.5-7.5) 12/08/19 22:46 Ur Specific [place] 1.023 (1.000-1.030) 06/17/19 22:46 Urine Protein Negative (Negative) 06/17/19 22:46 Urine Glucose (UA) 1+ (Negative) H 06/17/19 22:46 Urine Ketones Negative (Negative) 06/17/19 22:46 Urine Blood Negative (Negative) 06/17/19 22:46 Urine Nitrite Negative (Negative) 06/17/19 22:46 Urine Bilirubin Negative (Negative) 06/17/19 22:46 Urine Urobilinogen Negative (Negative) 06/17/19 22:46 Ur Leukocyte Esterase 1+ (Negative) H 06/17/19 22:46 Urine WBC (Auto) 5-10 /hpf (0-5) H 06/17/19 22:46 Urine RBC (Auto) 0-4 /hpf (0-4) 06/17/19 22:46 U Hyaline Cast (Auto) 10-30 /lpf (0-5) H 06/17/19 22:46 U Epithel Cells (Auto) >30 /lpf (0-5) H 06/17/19 22:46 Urine Bacteria (Auto) Negative (Negative) 06/17/19 22:46 Ur Renal Epithelial Cell 0-5 /lpf (0-5) 06/17/19 22:46 Calcium Oxalate Crystal Present (None Prsent) A 06/17/19 22:46 Granular Casts 1-5 /lpf (0) H 06/17/19 22:46 Waxy Casts 1-5 /lpf (0) H 06/17/19 22:[address] head initial read: No intracranial hemorrhage. Involutional changes. Small vessel disease. CT abdomen pelvis: Right hip prosthesis with usual postop changes of adjacent foci of soft tissue gas/swelling, right lateral subcutaneous gas and overlying skin moon noted. Coronary calcifications. Bibasilar atelectasis. Splenomegaly. Laura catheter. Calcified uterine fibroids. Chest x-ray : No acute process EKG as per my interpretation : Rate 125, sinus tachycardia, normal axis, short TN, delta wave, ST depression anterolateral leads
[2019-06-18 02:06] LABS: Allen Test POS (Pos); Base Excess ABG 2.8 mEq/L (-9-1.8); HCO3 ABG 27 mmol/L (19-24); PCO2 ABG 41 mmHg (35-46); PO2 ABG 153 mm/Hg (80-95); pH ABG 7.44 (7.35-7.45)
[2019-06-18 02:33] LABS: BUN Creatinine Ratio 42.9 (10-20); Calcium 7.4 mg/dl (8.5-10.1); Creatinine Clr Calc Pharmacy 15.6 ml/min; Est GFR (African American) 21.1; Est GFR (Non-African American) 18.2; Potassium 4.2 mmol/L (3.5-5.1)
[2019-06-18 02:52] LABS: Beta-Hydroxybutyrate 2.13 mg/dl (0.2-2.81)
[2019-06-18] MEDS ORDERED: INSULIN PROTOCOL GOAL RANGE ONE (02:59)
[2019-06-18] MEDS ORDERED: MODERATE STRESS LEVEL ONE (02:59)
[2019-06-18] MEDS ORDERED: METOCLOPRAMIDE HCL INJ 5 MG/ML 2 ML VIAL IV PRN (03:10)
[2019-06-18] MEDS ORDERED: ACETAMINOPHEN 325 MG TAB PO PRN (03:10)
[2019-06-18] MEDS ORDERED: GLUCAGON FOR INJ 1 MG VIAL SQ PRN (03:10)
[2019-06-18] MEDS ORDERED: GLUCOSE 10 TABS/TUBE PO PRN (03:10)
[2019-06-18] MEDS ORDERED: GLUCOSE 40% GEL 15 GM TUBE PO PRN (03:10)
[2019-06-18] MEDS ORDERED: SODIUM CHLORIDE 0.45 % 1,000 ML IV SCH (03:10)
[2019-06-18] MEDS ORDERED: CARBOHYDRATES FOR HYPOGLYCEMIA PO PRN (03:10)
[2019-06-18] MEDS ORDERED: OLANZapine 10 MG/2.1 ML SDV IM PRN (03:10)
[2019-06-18] MEDS ORDERED: INSULIN ASPART 100 UNITS/ML 3 ML PEN SC SCH ×2 (03:10→18:00)
[2019-06-18] MEDS ORDERED: DEXTROSE 50% 50 ML SYRINGE IV PRN (03:10)
[2019-06-18] MEDS ORDERED: DAPTOMYCIN CONSULT ACTIVE PRN (03:26)
[2019-06-18] MEDS ORDERED: PIPERACILL/TAZOBAC CONSULT ACTIVE PRN (03:26)
[2019-06-18] MEDS: SODIUM CHLORIDE 0.45 % 1,000 ML IV SCH ×2 (04:28→09:26)
[2019-06-18] MEDS ORDERED: D5W AND 1/2NSS 1,000 ML IV PRN (04:30)
[2019-06-18] MEDS ORDERED: INSULIN HUMAN REGULAR IV BOLUS 1.5 UNITS in SYRINGE 0 ML IV SCH (04:30)
[2019-06-18] MEDS ORDERED: INSULIN REGULAR 250 UNITS in SODIUM CHLORIDE 0.9% 247.5 ML IV SCH (04:30)
[2019-06-18] MEDS ORDERED: HEPARIN SOD 5,000 UNIT/0.5 ML VIAL SQ SCH (06:00)
[2019-06-18] MEDS ORDERED: PIPERACILLIN/TAZOBACTAM 3.375 GM in DEXTROSE 5% 100 ML IV SCH (06:00)
[2019-06-18 06:29] LABS: Hemoglobin 8.4 g/dL (12.0-16.0); Mean Corpuscular Hemoglobin 31.9 pg (25-34); Mean Corpuscular Volume 106.5 fL (80-100); Mean Platelet Volume 12.2 fL (7.4-10.4); Nucleated RBC # (auto) 0.04 K/uL (0-0); Nucleated RBC % (auto) 0.2 %; Platelet Count 125 K/uL (130-400); RDW Coefficient of Variation 14.3 % (11.5-14.5); RDW Standard Deviation 55.1 fL (36.4-46.3); Red Blood Count 2.63 M/uL (4.2-5.4); White Blood Count 17.24 K/uL (4.8-10.8)
[2019-06-18 06:40] LABS: Estimated Average Glucose 131 mg/dl; Hemoglobin A1C 6.2 % (4.5-5.6)
[2019-06-18 06:51] LABS: Calcium 7.9 mg/dl (8.5-10.1); Creatinine Clr Calc Pharmacy 16.3 ml/min; Est GFR (African American) 22.2; Est GFR (Non-African American) 19.2
[2019-06-18 07:03] LABS: Basophils # (auto) 0.02 K/uL (0-0.2); Basophils % (auto) 0.1 %; Hypogranular Neutrophils 1+; Immature Granulocytes # (auto) 0.29 K/uL (0.00-0.02); Immature Granulocytes % (auto) 1.7 %; Lymphocytes # (auto) 1.54 K/uL (1.2-3.4); Lymphocytes % (auto) 8.9 %; Monocytes # (auto) 0.56 K/uL (0.11-0.59); Monocytes % (auto) 3.2 %; Neutrophils # (auto) 14.83 K/uL (1.4-6.5); Neutrophils % (auto) 86.1 %; Platelet Estimate Decreased (Normal)
[2019-06-18 07:05] LABS: Beta-Hydroxybutyrate 1.39 mg/dl (0.2-2.81)
--- NOTE | 2019-06-18 07:08 | CT Scan Report ---
CT head/brain wo con CLINICAL HISTORY: 83 years-old Female presenting with ams, on xarelto. TECHNIQUE: Multidetector CT imaging of the head was performed without the use of intravenous contrast . IV contrast: None. One or more dose lowering techniques were used consistent with the principles of ALARA (as low as reasonably achievable), including automatic exposure control, mA or kV adjustment t o individual patient size, and/or use of iterative reconstruction. COMPARISON: 06/07/2019. CT DOSE (mGy.cm): The estimated cumulative dose is 2480.84. FINDINGS: Strings Teacher topogram: Unremarkable. Proportional ventricular and sulcal prominence, likely age-related parenchymal volume loss. No hemorr jose angel. Periventricular and subcortical white matter hypoattenuation, nonspecific but likely indicative of chronic small vessel ischemic change. Several old lacunar infarcts evident in the bilateral basal ganglia and periventricular white matter. No acute territorial infarct. No mass effect or midline sh ift. No extra-axial fluid collection. Left mastoid air cell fluid noted. Calvarium intact. IMPRESSION: 1. Chronic small vessel ischemic change and old lacunar infarcts. No acute intracranial abnormality. Electronically signed by: Chriss Belle M.D. 06/18/2019 7:07 AM
--- NOTE | 2019-06-18 07:18 | CT Scan Report ---
CT abd pelvis wo con CLINICAL HISTORY: 83 years-old Female presenting with acute renal failure, abdominal discomfort, unre sponsive. TECHNIQUE: Multidetector CT of the abdomen and pelvis was performed without the use of intravenous co ntrast. IV contrast: None. One or more dose lowering techniques were used consistent with the princip les of ALARA (as low as reasonably achievable), including automatic exposure control, mA or kV adjust ment to individual patient size, and/or use of iterative reconstruction. COMPARISON: None. CT DOSE (mGy.cm): The estimated cumulative dose is 2480.84 mGy.cm. FINDINGS: Image quality is moderately degraded by positioning of the arms over the abdomen and pelvis moderatel y limiting diagnostic sensitivity the exam beyond that expected for a noncontrast exam. Food Service Agent topogram: The patient is edentulous. Postsurgical changes of recent total right hip arthroplast y. Lung bases: Top normal heart size. Coronary artery calcification. Intraventricular blood pool is slig htly less dense and adjacent myocardium suggesting anemia. No pericardial or pleural effusion. Extens radha dependent consolidation and volume loss likely atelectasis. Liver: Grossly normal morphology. Normal density. Biliary: No gross biliary ductal dilatation allowing for noncontrast technique. Gallbladder surgicall y absent. Pancreas: Moderate parenchymal atrophy. Spleen: Enlarged measuring 13.9 cm in maximal sagittal dimension. Adrenal glands: Thickening of the adrenal glands, left greater than right, nonspecific. Kidneys and ureters: Normal noncontrast appearance. No nephrolithiasis. No hydronephrosis. Normal ure ters. Bladder: Decompressed with a Laura catheter. Pelvic organs: No evidence of degenerated fibroids in the uterus. Normal noncontrast appearance of th e ovaries. Bowel: Mild diverticulosis of the mid sigmoid colon without wall thickening or pericolonic inflammato ry change. Few additional diverticula noted elsewhere. The appendix is normal. No bowel obstruction. Peritoneal cavity: No free fluid or intraperitoneal gas. Lymph nodes: No gross lymphadenopathy allowing for noncontrast technique. Vasculature: Atherosclerosis of the normal caliber abdominal aorta. Perisplenic varices are suggested . Abdominal wall: Normal. Musculoskeletal: Postsurgical changes of total right hip arthroplasty. Surrounding soft tissue swelli ng. There is also an intramuscular hematoma in the right abductor muscle group. The expanded muscle m easures 4.8 x 3.2 cm in maximal axial dimension. Few foci of soft tissue gas and subcutaneous edema n oted. Posttraumatic deformity of prior intertrochanteric fracture of the left femur, which appears he aled. Degenerative changes of the lumbar spine. Several old rib fractures are also noted. IMPRESSION: 1. Post surgical changes of total right hip arthroplasty. The presence of an intramuscular hematoma in the right abductor muscle group may relate to postsurgical change. Otherwise expected appearance. 2. Allowing for noncontrast technique and degraded image quality due to arm positioning, no acute in tra-abdominal pathology. 3. Mild splenomegaly and varices raise concern for portal hypertension. Electronically signed by: Chriss Belle M.D. 06/18/2019 7:17 AM
--- NOTE | 2019-06-18 07:33 | XRay Report ---
XR chest 1V portable CLINICAL HISTORY: 83 years-old Female presenting with low o2. TECHNIQUE: Portable upright AP view of the chest was obtained. COMPARISON: 06/17/2019. FINDINGS: Atherosclerosis of the aortic arch. Cardiac silhouette borderline enlarged. Heterogeneous radiolucenc y of the lungs. No focal opacity. No large effusion or pneumothorax. Osteopenia suspected. Posttrauma tic deformity of the right clavicle. Upper abdomen normal. IMPRESSION: 1. Borderline cardiomegaly. No evidence of volume overload or congestive change. Electronically signed by: Chriss Belle M.D. 06/18/2019 7:32 AM
--- NOTE | 2019-06-18 07:42 | Nephrology Consultation ---
Date of Consultation June 18, 2019 Assessment & Plan (1) Acute respiratory distress: discussed w/ Dr Aquino at approx 0930> recommended repeat CXR; low threshold to stop all IVF given tachypnea, new 02 needs; ABG reassuring however from earlier Present on Admission?: Yes (2) YFN (acute kidney injury): prerenal nonoliguric YFN w/ baseline creatinine 0.6-0.7 w/ presenting creatinine 2.9 on 06/17 -cont 1/2 NS at as aggressive a rate as pt will tolerate-- may need to stop as above Present on Admission?: Yes (3) Hypernatremia: from poor po intake by defn -cont 1/2 NS for now as D5W not an option w/ current BG -labs q6 hrs < balance need for labs w/ challenges to get labs from demented, agitated pt Present on Admission?: Yes (4) Sepsis: -on vanco, zosyn -- dose vanco w/ caution given rapidly changing renal function in this elderly /debilitated pt -bp stable; f/u pending cxs and repeat lactates Present on Admission?: Yes History of Present Illness Reason for Consultation: hypernatremia, YFN Requesting Physician: Dr Irizarry Attending Physician: Rashel Aquino MD History of Present Illness 83 y/o F ID resident d/c from here 06/12 after R hip hemiarthroplasty for fracture after a fall was readmitted last night w/ altered MS; I'm asked to see her for hypernatremia and YFN. Presenting sodium yesterday evening was 167; sNa had been rising late last week w/ d/c value 144; then on 06/13 149, 06/14 153. Also w/ YFN w/ presenting creatinine last evening 2.9; had been 2/1 on 06/17; prior to that 1.0 on 06/14; her baseline creatinine as of 05/2019 is 0.6-0.7. She had a UTI during previous admission w / E coli and completed tx for this prior to d/c. PMH includes CAD, DM on insulin, chronic idiopathic thrombocytopenia, dementia, chronic ambulatory dysfunction (w/c bound prior to fall), paranoid schizophrenia, HTN, HL, stroke. She has had 4L IVF w/ 700 uop overnight: her sodium has improved to 164; creat is 2.3. Her lactate is elevated and BG are running at about 400. Difficult to sort out which IVF given exactly: had 2 L NS, 1 L LR, since then 1/2 NS. Also on insulin gtt and had 1 gm vanco as well as zosyn. She was on RA initially then up to 8 L at night and on 4L at time I saw her. Allergies Allergy/AdvReac Type Severity Reaction Status Date / Time barium sulfate Allergy unknown Verified 06/17/19 22:09 benztropine Allergy unknown Verified 06/17/19 22:09 chlorpromazine Allergy unknown Verified 06/17/19 22:09 clozapine Allergy unknown Verified 06/17/19 22:09 diatrizoate meglumine Allergy Unknown Verified 06/17/19 22:09 diatrizoate sodium Allergy unknown Verified 06/17/19 22:09 gadodiamide Allergy unknown Verified 06/17/19 22:09 iodine Allergy unknown Verified 06/17/19 22:09 iodixanol Allergy unknown Verified 06/17/19 22:09 sulfamethoxazole Allergy Unknown Verified 06/17/19 22:09 [From Bactrim] trimethoprim [From Bactrim] Allergy Unknown Verified 06/17/19 22:09 Home Medications Home Medications Medication Instructions Recorded Confirmed Type 0.9% Normal Salne 1,000 ml IV QS 06/17/19 06/17/19 History Ah Gel 1 applic TOPICAL DAILY 06/17/19 06/17/19 History Medihoney Paste 1 applic TOPICAL QS 06/17/19 06/17/19 History acetaminophen [Tylenol] 650 mg PO Q6H PRN 06/17/19 06/17/19 History amlodipine [Norvasc] 10 mg PO DAILY 06/17/19 06/17/19 History ceftriaxone 1 g IM DAILY 06/17/19 06/17/19 History cholecalciferol (vitamin D3) 400 unit PO QAM 06/17/19 06/17/19 History [Vitamin D3] furosemide [Lasix] 40 mg PO DAILY 06/17/19 06/17/19 History insulin detemir U-100 [Levemir 15 unit SUBCUT HS 06/17/19 06/17/19 History U-100 Insulin] magnesium hydroxide [Milk of 15 ml PO DAILY PRN 06/17/19 06/17/19 History Magnesia] metoprolol tartrate 25 mg PO BID 06/17/19 06/17/19 History multivitamin 1 tab PO DAILY 06/17/19 06/17/19 History nitroglycerin [Nitrostat] 0.4 mg SUBLINGUAL UD PRN 06/17/19 06/17/19 History potassium chloride 15 meq PO BID 06/17/19 06/17/19 History rivaroxaban [Xarelto] 10 mg PO QAM 06/17/19 06/17/19 History whey protein isolate [Beneprotein] 1 ea PO DAILY 06/17/19 06/17/19 History Patient History Medical History (Updated 06/18/19 @ 10:51 by Samra Vines MD, PhD) Ambulatory dysfunction (Acute) Chronic ITP (idiopathic thrombocytopenia) CVA (cerebral vascular accident) Diabetes Displaced fracture of right femoral neck Hypertension Paranoid schizophrenia in remission Surgical History History of right hip hemiarthroplasty Family History Unknown No significant family history Social History Preferred Language: Urugu[place] Communication Ability: Impaired Holistic Pulser Required: No Beliefs That Will Affect Care: None Current Living Situation: Longterm Current Living Situation Comment: [place] Feels Safe at Home: Yes Smoking Status: Unknown if ever smoked Hx Alcohol Use: No Hx Substance Use: No Review of Systems Review of Systems: Unobtainable due to reduced consciousness Physical Exam Constitutional: well developed, + thin and + in distress (mild w/ tachypnea, restlessness) not alert/does not interact/open eyes Eyes: keeps eyes tightly shut ENMT: Ears: no external ear abnormality Nose: no external nose abnormality Mouth: + dry oral mucous membranes Neck: no nuchal rigidity Respiratory: + tachypneic and + paradoxical thoraco-abdominal movement; does not use accessory muscles Auscultation: lungs clear to auscultation bilaterally and + diminished lung sounds; no crackles and no wheezes Cardiovascular: Rate/Rhythm: + tachycardic and + irregularly irregular Extremities: no edema Gastrointestinal (Abdomen): Inspection/Auscultation: normal bowel sounds Percussion/Palpation: abdomen soft; abdomen nontender Musculoskeletal: moves BLUE Skin: no rashes, warm and dry sacral decub not examined Neurologic: + obtunded Genitourinary: lobo present w/ ample cloudy urine Results & Data Vital Signs (Past 12 Hours) Vital Signs Temp Pulse Pulse Resp BP BP Pulse Ox 06/18/19 07:20 36.5 C 83 16 136/67 91 06/18/19 04:36 36.7 C 97 H 20 92/50 L 100 06/18/19 01:30 99 H 18 116/61 100 06/17/19 22:35 109 H 20 120/67 95 06/17/19 22:27 95 06/17/19 21:53 36.7 C 122 H 22 82/56 L 95 Laboratory Results 06/18/19 06:02 06/18/19 05:54 blood cxs in process Diagnostic Findings ct abd/pelvis non con 1. Post surgical changes of total right hip arthroplasty. The presence of an intramuscular hematoma in the right abductor muscle group may relate to postsurgical change. Otherwise expected appearance. 2. Allowing for noncontrast technique and degraded image quality due to arm positioning, no acute intra-abdominal pathology. 3. Mild splenomegaly and varices raise concern for portal hypertension. head CT 1. Chronic small vessel ischemic change and old lacunar infarcts. No acute intracranial abnormality. cxr 1. Borderline cardiomegaly. No evidence of volume overload or congestive change. (1) Sepsis Sepsis acute organ dysfunction status: unspecified Sepsis type: sepsis due to unspecified organism Qualified Code(s): A41.9 - Sepsis, unspecified organism
[2019-06-18] MEDS ORDERED: PHARMACY GLYCEMIC MGMT CONSULT PRN (08:56)
[2019-06-18] MEDS: INSULIN ASPART 100 UNITS/ML 3 ML PEN SC SCH ×2 (08:59→12:53)
[2019-06-18] MEDS ORDERED: METOPROLOL TARTRATE 25 MG TAB PO SCH (09:00)
[2019-06-18] MEDS ORDERED: MULTIVITAMIN TAB PO SCH (09:00)
[2019-06-18] MEDS ORDERED: INSULIN DETEMIR FLEXPEN/FLEX TOUCH 100 UNITS/ML 3ML SC ONE (09:30)
[2019-06-18] MEDS ORDERED: ACETAMINOPHEN 1,000 MG/100 ML VIAL IV PRN (09:43)
--- NOTE | 2019-06-18 10:17 | Orthopedic Consultation ---
Date of Consultation June 18, 2019 Assessment & Plan (1) History of right hip hemiarthroplasty: Currently, the patient's wound appears very benign as do the soft tissues around it. It would not be unusual for her to have discomfort in the right hip with range of motion 8 days postop, and it would not be uncommon to have a small hematoma postoperatively. I will have Dr. Lopes see the patient today and to review the CT of the abdomen /pelvis as well to decide if there is a need for any further diagnostic studies needed at this time. Supervising Physician Co-Signing Physician Notes Patient seen and examined, agree with above assessment and plan History of Present Illness Reason for Consultation: Postoperative evaluation status post right bipolar hemiarthroplasty on 06/10/2019 Attending Physician: Rashel Aquino MD History of Present Illness 83-year-old white female known to our practice who is status post right bipolar hemiarthroplasty by Dr. Horton on 06/10/2019. Patient had what appears a normal postoperative recovery time without difficulty and was transferred to a skilled facility on 06/12/2019. Patient returned with mental status changes and increased white count. CT of the abdomen and pelvis was noting a small intramuscular hematoma in the area of the recent surgery on her right hip. We have been asked to evaluate her right hip. Allergies Allergy/AdvReac Type Severity Reaction Status Date / Time barium sulfate Allergy unknown Verified 06/17/19 22:09 benztropine Allergy unknown Verified 06/17/19 22:09 chlorpromazine Allergy unknown Verified 06/17/19 22:09 clozapine Allergy unknown Verified 06/17/19 22:09 diatrizoate meglumine Allergy Unknown Verified 06/17/19 22:09 diatrizoate sodium Allergy unknown Verified 06/17/19 22:09 gadodiamide Allergy unknown Verified 06/17/19 22:09 iodine Allergy unknown Verified 06/17/19 22:09 iodixanol Allergy unknown Verified 06/17/19 22:09 sulfamethoxazole Allergy Unknown Verified 06/17/19 22:09 [From Bactrim] trimethoprim [From Bactrim] Allergy Unknown Verified 06/17/19 22:09 Home Medications Home Medications Medication Instructions Recorded Confirmed Type 0.9% Normal Salne 1,000 ml IV QS 06/17/19 06/17/19 History Ah Gel 1 applic TOPICAL DAILY 06/17/19 06/17/19 History Medihoney Paste 1 applic TOPICAL QS 06/17/19 06/17/19 History acetaminophen [Tylenol] 650 mg PO Q6H PRN 06/17/19 06/17/19 History amlodipine [Norvasc] 10 mg PO DAILY 06/17/19 06/17/19 History ceftriaxone 1 g IM DAILY 06/17/19 06/17/19 History cholecalciferol (vitamin D3) 400 unit PO QAM 06/17/19 06/17/19 History [Vitamin D3] furosemide [Lasix] 40 mg PO DAILY 06/17/19 06/17/19 History insulin detemir U-100 [Levemir 15 unit SUBCUT HS 06/17/19 06/17/19 History U-100 Insulin] magnesium hydroxide [Milk of 15 ml PO DAILY PRN 06/17/19 06/17/19 History Magnesia] metoprolol tartrate 25 mg PO BID 06/17/19 06/17/19 History multivitamin 1 tab PO DAILY 06/17/19 06/17/19 History nitroglycerin [Nitrostat] 0.4 mg SUBLINGUAL UD PRN 06/17/19 06/17/19 History potassium chloride 15 meq PO BID 06/17/19 06/17/19 History rivaroxaban [Xarelto] 10 mg PO QAM 06/17/19 06/17/19 History whey protein isolate [Beneprotein] 1 ea PO DAILY 06/17/19 06/17/19 History Patient History Medical History (Updated 06/18/19 @ 13:16 by VARUN Clark) Agitation Ambulatory dysfunction (Acute) Chronic ITP (idiopathic thrombocytopenia) CVA (cerebral vascular accident) Diabetes Displaced fracture of right femoral neck Hypertension Palliative care encounter Paranoid schizophrenia in remission Surgical History History of right hip hemiarthroplasty Family History Unknown No significant family history Social History Preferred Language: Pashto Communication Ability: Impaired [employer] Required: No Beliefs That Will Affect Care: None Current Living Situation: Long-Term Current Living Situation Comment: [facility] Feels Safe at Home: Yes Smoking Status: Unknown if ever smoked Hx Alcohol Use: No Hx Substance Use: No Physical Exam Physical Exam: Patient currently lying in bed upon arrival into the room. Family present. Family states that the had not shown any signs of increased problems with the right hip during her stay prior to admission. They did notice her mental status changes and she was brought to the emergency room. Focusing the exam on her right lower extremity, there is a dressing on the right hip from previous hemiarthroplasty. This was removed. She currently has moon in the wound at this time. She is postop day 8. Suture line is intact and there is no erythema or swelling noted. She has no overt swelling noted of the right thigh and it is soft and appears nontender on palpation. I am able to take the right hip through gentle range of motion passively. The patient who is nonverbal at this time, does not show signs that she may be having some discomfort with range of motion but she is not grimacing at this time. The hip feels smooth range of motion and does not appear to impinge. No obvious pain with right knee range of motion or right ankle. Leg lengths appear equal. Results & Data Vital Signs (Past 12 Hours) Vital Signs Temp Pulse Resp BP Pulse Ox 06/18/19 07:20 36.5 C 83 16 136/67 91 06/18/19 04:36 36.7 C 97 H 20 92/50 L 100 06/18/19 01:30 99 H 18 116/61 100 06/17/19 22:35 109 H 20 120/67 95 06/17/19 22:27 95 Laboratory Results Laboratory Results WBC 17.24 K/uL (4.8-10.8) H 06/18/19 06:02 RBC 2.63 M/uL (4.2-5.4) L 06/18/19 06:02 Hgb 8.4 g/dL (12.0-16.0) L 06/18/19 06:02 Hct 28.0 % (37-47) L 06/18/19 06:02 MCV 106.5 fL (80-100) H 06/18/19 06:02 MCH 31.9 pg (25-34) 06/18/19 06:02 MCHC 30.0 g/dL (32-36) L 06/18/19 06:02 RDW Std Deviation 55.1 fL (36.4-46.3) H 06/18/19 06:02 RDW Coeff of Catia 14.3 % (11.5-14.5) 06/18/19 06:02 Plt Count 125 K/uL (130-400) L 06/18/19 06:02 MPV 12.2 fL (7.4-10.4) H 06/18/19 06:02 Immature Gran % (Auto) 1.7 % 06/18/19 06:02 Neut % (Auto) 86.1 % 06/18/19 06:02 Lymph % (Auto) 8.9 % 06/18/19 06:02 [place] % (Auto) 3.2 % 06/18/19 06:02 Eos % (Auto) 0.0 % 06/18/19 06:02 Baso % (Auto) 0.1 % 06/18/19 06:02 Immature Gran # (Auto) 0.29 K/uL (0.00-0.02) H 06/18/19 06:02 Neut # (Auto) 14.83 K/uL (1.4-6.5) H 06/18/19 06:02 Lymph # (Auto) 1.54 K/uL (1.2-3.4) 06/18/19 06:02 [place] # (Auto) 0.56 K/uL (0.11-0.59) 06/18/19 06:02 Eos # (Auto) 0.00 K/uL (0-0.5) 06/18/19 06:02 Baso # (Auto) 0.02 K/uL (0-0.2) 06/18/19 06:02 Absolute Nucleated RBC 0.04 K/uL (0-0) H 06/18/19 06:02 Nucleated RBC % (auto) 0.2 % 06/18/19 06:02 Hypogranular Neuts 1+ 06/18/19 06:02 Platelet Estimate Decreased (Normal) L 06/18/19 06:02 ESR 55 mm/hr (0-21) H 06/17/19 22:32 PT 13.3 Seconds (9.0-12.0) H 06/17/19 22:32 INR 1.3 (0.9-1.1) H 06/17/19 22:32 APTT 23.7 Seconds (21.0-31.0) 06/17/19 22:32 PTT Ratio 0.9 06/17/19 22:32 ABG pH 7.44 (7.35-7.45) 06/18/19 01:52 ABG pCO2 41 mmHg (35-46) 06/18/19 01:52 ABG pO2 153 mm/Hg (80-95) H 06/18/19 01:52 ABG HCO3 27 mmol/L (19-24) H 06/18/19 01:52 ABG O2 Saturation 99.0 % (90-95) H 06/18/19 01:52 ABG Base Excess 2.8 mEq/L (-9-1.8) H 06/18/19 01:52 Shaq Test POS (Pos) 06/18/19 01:52 VBG pH 7.44 (7.36-7.41) H 06/17/19 22:32 VBG pCO2 45 mmHg (38-50) 06/17/19 22:32 VBG pO2 35 mmHg 06/17/19 22:32 VBG HCO3 30 mmol/L 06/17/19 22:32 VBG O2 Saturation 65.0 % 06/17/19 22:32 VBG Base Excess 5.5 mEq/L 06/17/19 22:32 Barometric Pressure 734.9 mm/Hg 06/18/19 01:52 Oxygen Given 7L 06/18/19 01:52 Sodium 164 mmol/L (136-145) H* 06/18/19 05:54 Potassium 4.0 mmol/L (3.5-5.1) 06/18/19 05:54 Chloride 131 mmol/L (98-107) H 06/18/19 05:54 Carbon Dioxide 25 mmol/L (21-32) 06/18/19 05:54 Anion Gap 8.0 (3-11) 06/18/19 05:54 BUN 99 mg/dl (7-18) H 06/18/19 05:54 Creatinine 2.30 mg/dl (0.6-1.2) H 06/18/19 05:54 Est Cr Clr Drug Dosing 16.3 ml/min 06/18/19 05:54 Est GFR ( Amer) 22.2 06/18/19 05:54 Est GFR (Non-Af Amer) 19.2 06/18/19 05:54 BUN/Creatinine Ratio 43.0 (10-20) H 06/18/19 05:54 Glucose 406 mg/dl (70-99) H* 06/18/19 05:54 POC Glucose 363 (70-99) H* 06/18/19 07:16 Estimat Average Glucose 131 mg/dl 06/18/19 05:54 Hemoglobin A1c 6.2 % (4.5-5.6) H 06/18/19 05:54 Lactate 2.8 mmol/L (0.4-2.0) H* 06/18/19 05:54 Calcium 7.9 mg/dl (8.5-10.1) L 06/18/19 05:54 Magnesium 2.9 mg/dl (1.8-2.4) H 06/17/19 22:32 Total Bilirubin 0.9 mg/dl (0.2-1) 06/17/19 22:32 AST 40 U/L (15-37) H 06/17/19 22:32 ALT 36 U/L (12-78) 06/17/19 22:32 Alkaline Phosphatase 100 U/L (45-117) 06/17/19 22:32 Ammonia 26.0 umol/L (11-32) 06/18/19 01:52 Troponin I 0.160 ng/ml (0-0.045) H* 06/17/19 22:32 C-Reactive Protein 10.70 mg/dl (0-0.29) H 06/17/19 22:32 Total Protein 6.2 gm/dl (6.4-8.2) L 06/17/19 22:32 Albumin 2.4 gm/dl (3.4-5.0) L 06/17/19 22:32 Globulin 3.8 gm/dl (2.5-4.0) 06/17/19 22:32 Albumin/Globulin Ratio 0.6 (0.9-2) L 06/17/19 22:32 Beta-Hydroxybutyric Acd 1.39 mg/dl (0.2-2.81) 06/18/19 05:54 Procalcitonin 0.63 ng/ml (0-0.5) H 06/17/19 22:32 TSH 0.293 uIu/ml (0.300-4.500) L 06/17/19 22:32 Free T4 1.44 ng/dl (0.8-1.6) 06/17/19 22:32 Urine Color Dark Yellow 06/17/19 22:46 Urine Appearance Clear (Clear) 06/17/19 22:46 Urine pH 5.0 (4.5-7.5) 06/17/19 22:46 Ur Specific [place] 1.023 (1.000-1.030) 06/17/19 22:46 Urine Protein Negative (Negative) 06/17/19 22:46 Urine Glucose (UA) 1+ (Negative) H 06/17/19 22:46 Urine Ketones Negative (Negative) 06/17/19 22:46 Urine Blood Negative (Negative) 06/17/19 22:46 Urine Nitrite Negative (Negative) 06/17/19 22:46 Urine Bilirubin Negative (Negative) 06/17/19 22:46 Urine Urobilinogen Negative (Negative) 06/17/19 22:46 Ur Leukocyte Esterase 1+ (Negative) H 06/17/19 22:46 Urine WBC (Auto) 5-10 /hpf (0-5) H 06/17/19 22:46 Urine RBC (Auto) 0-4 /hpf (0-4) 06/17/19 22:46 U Hyaline Cast (Auto) 10-30 /lpf (0-5) H 06/17/19 22:46 U Epithel Cells (Auto) >30 /lpf (0-5) H 06/17/19 22:46 Urine Bacteria (Auto) Negative (Negative) 06/17/19 22:46 Ur Renal Epithelial Cell 0-5 /lpf (0-5) 06/17/19 22:46 Calcium Oxalate Crystal Present (None Prsent) A 06/17/19 22:46 Granular Casts 1-5 /lpf (0) H 06/17/19 22:46 Waxy Casts 1-5 /lpf (0) H 06/17/19 22:46 Diagnostic Findings [facility], [place] [phone] CT Scan Report Patient: WALESKA WALLERORESAdmit Date: 06/18/19 MR#: [id number]: [address] Acct ID:[id number]: [place] Date: 1935City Zip: [place] [address] Age: 83Location: 2W Sex: F Room/Bed: [facility] Att Phy: Rashel Aquino, MDDiagnosis: ENCEPHALOPATHY Cynthia Phy: Heir ColumbaloomService Date: 06/17/19 Fam Phy:Interpreting Phy: Chriss Belle MD Admit Phy: Deyn Cazares MD Ordering Phy: Deny Cazares MD cc: ~ CT abd pelvis wo con CLINICAL HISTORY: 83 years-old Female presenting with acute renal failure, abdominal discomfort, unresponsive. TECHNIQUE: Multidetector CT of the abdomen and pelvis was performed without the use of intravenous contrast. IV contrast: None. One or more dose lowering techniques were used consistent with the principles of ALARA (as low as reasonably achievable), including automatic exposure control, mA or kV adjustment to individual patient size, and/or use of iterative reconstruction. COMPARISON: None. CT DOSE (mGy.cm): The estimated cumulative dose is 2480.84 mGy.cm. FINDINGS: Image quality is moderately degraded by positioning of the arms over the abdomen and pelvis moderately limiting diagnostic sensitivity the exam beyond that expected for a noncontrast exam. Wet Pan Mixer topogram: The patient is edentulous. Postsurgical changes of recent total right hip arthroplasty. Lung bases: Top normal heart size. Coronary artery calcification. Intraventricular blood pool is slightly less dense and adjacent myocardium suggesting anemia. No pericardial or pleural effusion. Extensive dependent consolidation and volume loss likely atelectasis. Liver: Grossly normal morphology. Normal density. Biliary: No gross biliary ductal dilatation allowing for noncontrast technique. Gallbladder surgically absent. Pancreas: Moderate parenchymal atrophy. Spleen: Enlarged measuring 13.9 cm in maximal sagittal dimension. Adrenal glands: Thickening of the adrenal glands, left greater than right, nonspecific. Kidneys and ureters: Normal noncontrast appearance. No nephrolithiasis. No hydronephrosis. Normal ureters. Bladder: Decompressed with a Laura catheter. Pelvic organs: No evidence of degenerated fibroids in the uterus. Normal noncontrast appearance of the ovaries. Bowel: Mild diverticulosis of the mid sigmoid colon without wall thickening or pericolonic inflammatory change. Few additional diverticula noted elsewhere. The appendix is normal. No bowel obstruction. Peritoneal cavity: No free fluid or intraperitoneal gas. Lymph nodes: No gross lymphadenopathy allowing for noncontrast technique. Vasculature: Atherosclerosis of the normal caliber abdominal aorta. Perisplenic varices are suggested. Abdominal wall: Normal. Musculoskeletal: Postsurgical changes of total right hip arthroplasty. Surrounding soft tissue swelling. There is also an intramuscular hematoma in the right abductor muscle group. The expanded muscle measures 4.8 x 3.2 cm in maximal axial dimension. Few foci of soft tissue gas and subcutaneous edema noted. Posttraumatic deformity of prior intertrochanteric fracture of the left femur, which appears healed. Degenerative changes of the lumbar spine. Several old rib fractures are also noted. IMPRESSION: 1. Post surgical changes of total right hip arthroplasty. The presence of an intramuscular hematoma in the right abductor muscle group may relate to postsurgical change. Otherwise expected appearance. 2. Allowing for noncontrast technique and degraded image quality due to arm positioning, no acute intra-abdominal pathology. 3. Mild splenomegaly and varices raise concern for portal hypertension. Electronically signed by: Chriss Belle M.D. 06/18/2019 7:17 AM Dictated: 06/18/19 0618 Transcribed: 06/18/19 0618
--- NOTE | 2019-06-18 10:22 | XRay Report ---
XR chest 1V portable CLINICAL HISTORY: SOB dyspnea COMPARISON STUDY: 06/18/2019 1:00 AM FINDINGS: No significant cardiac enlargement. Diaphragms are smooth. Slight prominence of interstitial markings left base. Lungs otherwise appear clear. IMPRESSION: Minimal interstitial infiltrate versus atelectasis left base. Lungs otherwise are clear. The above report was generated using voice recognition software. It may contain grammatical, syntax or spelling errors. Electronically signed by: Paul Main M.D. 06/18/2019 10:21 AM
[2019-06-18 12:40] LABS: BUN Creatinine Ratio 47.7 (10-20); Calcium 8.3 mg/dl (8.5-10.1); Creatinine Clr Calc Pharmacy 18.7 ml/min; Est GFR (African American) 26.3; Est GFR (Non-African American) 22.7; Potassium 3.9 mmol/L (3.5-5.1)
[2019-06-18] MEDS ORDERED: MoRPHine SULFATE 2 MG/ML CARP IV STA ×2 (12:59→16:08)
--- NOTE | 2019-06-18 13:16 | Palliative Care Consultation ---
Date of Consultation June 18, 2019 Assessment & Plan (1) Palliative care encounter: This is an 83 year old female who prsented to the [facility] from [facility] with altered mental status and agitation. The patient has additional PMH that includes advanced dementia, schizophrenia, CAD/CVA and arecet right hip fracture that was repaired on 06/07/19. The patient had leukocytosis with a WBC ranging from 17.24 --> 22 throughout her hospitalization despite IV antibiotic treatment. The source of infection was not determined. Her CXR was negative, head CT, abdominal CT both negative. blood clultures were pending. The patient did have a stage II pressure ulcer wound that may have been a source, no culture obtained to date. Palliative Care was consulted to discuss goals of care. -I met with the patient in her room. She opened her eyes, but no meaningful conversation was had. The patient appeared to be in acute distress. -No family initially at the bedside. I did receive a call from nursing that the daughter came to the bedside, which I met her in the room. We discussed that the patient appears to be in distress. The patients daughter, Emely, said that she seems restless, but that is her baseline. -We talked about comfort measures and what that entails. She said she wanted to give her another few days to see how things go, since this was so unexpected. -[id number]: Coming back into the room, the patient was tachycardic, tachypnic, diaphoretic and using increased accessory muscles for breathing. I called Emely back, and discussed her current medical condition. She did not want her to receive frequent Morphine, but was ok with her receiving Morphine 1mg Q6 hours initally, and then agreed to Q4 hours. Update: 1630. I walked by the patients room and it appeared she was not breathing. I entered the room and the patient had indeed ceased to breathe. I notified nursing and called the patients daughter who provided prison information. She declined in wanting to return to the hospital. Hospitalist came to room to pronounce. Patient cesased to breathe at 1700 with asytole on the monitor noted. (2) Dementia: (3) History of right hip hemiarthroplasty: (4) Paranoid schizophrenia in remission: (5) Agitation: Supervising Physician Co-Signing Physician Notes Late entry for visit and exam done on 06/18. Patient seen and examined later this afternoon along with VARUN Clark. Patient restless, increased work of breathing. PE: Patient unresponsive to voice or touch Respiratory: Patient on O2 via oxime mask-increased work of breathing CV: Tachycardic Abdomen: Not distended Skin: Clammy to touch, no mottling Agree with above note, assessment and plan as per VARUN Clark. Will continue to follow and assess patient's comfort level as she is nearing end-of-life. History of Present Illness Reason for Consultation: goals of care Requesting Physician: Dr. Aquino Attending Physician: Rashel Aquino MD History of Present Illness This is an 83 year old female who prsented to the [facility] from [facility] with altered mental status and agitation. The patient has additional PMH that includes advanced dementia, schizophrenia, CAD/CVA and arecet right hip fracture that was repaired on 06/07/19. The patient had leukocytosis with a WBC ranging from 17.24 --> 22 throughout her hospitalization despite IV antibiotic treatment. The source of infection was not determined. Her CXR was negative, head CT, abdominal CT both negative. blood cultures were pending. The patient did have a stage II pressure ulcer wound that may have been a source, no culture obtained to date. Palliative Care was consulted to discuss goals of care. Please see A/P for further details. Thank you kindly for involving the palliative care team with this patient. Allergies Allergy/AdvReac Type Severity Reaction Status Date / Time barium sulfate Allergy unknown Verified 06/17/19 22:09 benztropine Allergy unknown Verified 06/17/19 22:09 chlorpromazine Allergy unknown Verified 06/17/19 22:09 clozapine Allergy unknown Verified 06/17/19 22:09 diatrizoate meglumine Allergy Unknown Verified 06/17/19 22:09 diatrizoate sodium Allergy unknown Verified 06/17/19 22:09 gadodiamide Allergy unknown Verified 06/17/19 22:09 iodine Allergy unknown Verified 06/17/19 22:09 iodixanol Allergy unknown Verified 06/17/19 22:09 sulfamethoxazole Allergy Unknown Verified 06/17/19 22:09 [From Bactrim] trimethoprim [From Bactrim] Allergy Unknown Verified 06/17/19 22:09 Home Medications Home Medications Medication Instructions Recorded Confirmed Type 0.9% Normal Salne 1,000 ml IV QS 06/17/19 06/17/19 History Ah Gel 1 applic TOPICAL DAILY 06/17/19 06/17/19 History Medihoney Paste 1 applic TOPICAL QS 06/17/19 06/17/19 History acetaminophen [Tylenol] 650 mg PO Q6H PRN 06/17/19 06/17/19 History amlodipine [Norvasc] 10 mg PO DAILY 06/17/19 06/17/19 History ceftriaxone 1 g IM DAILY 06/17/19 06/17/19 History cholecalciferol (vitamin D3) 400 unit PO QAM 06/17/19 06/17/19 History [Vitamin D3] furosemide [Lasix] 40 mg PO DAILY 06/17/19 06/17/19 History insulin detemir U-100 [Levemir 15 unit SUBCUT HS 06/17/19 06/17/19 History U-100 Insulin] magnesium hydroxide [Milk of 15 ml PO DAILY PRN 06/17/19 06/17/19 History Magnesia] metoprolol tartrate 25 mg PO BID 06/17/19 06/17/19 History multivitamin 1 tab PO DAILY 06/17/19 06/17/19 History nitroglycerin [Nitrostat] 0.4 mg SUBLINGUAL UD PRN 06/17/19 06/17/19 History potassium chloride 15 meq PO BID 06/17/19 06/17/19 History rivaroxaban [Xarelto] 10 mg PO QAM 06/17/19 06/17/19 History whey protein isolate [Beneprotein] 1 ea PO DAILY 06/17/19 06/17/19 History Patient History Medical History (Updated 06/18/19 @ 13:16 by VARUN Clark) Agitation Ambulatory dysfunction (Acute) Chronic ITP (idiopathic thrombocytopenia) CVA (cerebral vascular accident) Diabetes Displaced fracture of right femoral neck Hypertension Palliative care encounter Paranoid schizophrenia in remission Surgical History History of right hip hemiarthroplasty Family History Unknown No significant family history Social History Preferred Language: British Communication Ability: Impaired Population Geneticist Required: No Beliefs That Will Affect Care: None Current Living Situation: Assisted Current Living Situation Comment: [place] Feels Safe at Home: Yes Smoking Status: Unknown if ever smoked Hx Alcohol Use: No Hx Substance Use: No Review of Systems Review of Systems: Unobtainable due to reduced consciousness Physical Exam Constitutional: + ill appearing, + frail appearing, + disheveled and + in distress Respiratory: + uses accessory muscles and + grunting Cardiovascular: Rate/Rhythm: + tachycardic Gastrointestinal (Abdomen): normal bowel sounds, soft, nontender, no hepatosplenomegaly Skin: diaphoretic Results & Data Vital Signs (Past 12 Hours) Vital Signs Temp Pulse Resp BP Pulse Ox 06/18/19 11:07 36.7 C 107 H 32 H 106/65 96 06/18/19 07:20 36.5 C 83 16 136/67 91 06/18/19 04:36 36.7 C 97 H 20 92/50 L 100 06/18/19 01:30 99 H 18 116/61 100 PG Care Time/CCT Total # of Minutes Spent Total Time Spent with Patient: Total time spent is greater than 50% in coordination of care (as documented) at patient's floor/unit and/or counseling patient: 145 Time Spent Midlevel Total time spent 145 minutes with > 50% of that time spent assessing the patient, discussing goals of care on multiple occasions with the patients daughter, discussing plan of care with IDT and providing symptom management at end of life.
--- NOTE | 2019-06-18 13:52 | Pharmacy Report ---
Glycemic Control Consultation - Date of Service June 18, 2019 - Scope Scope: Glycemic Pharmacist consulted by Dr Aquino on 06/18/19 for glycemic control and to write orders per [facility] inpatient glycemic control protocol - Objective Weight: 55.7 kg Accuchecks BSG (last 24hrs): 06/17/19 06/18/19 06/18/19 22:32 01:52 03:04 Glucose 431 H* 418 H* POC Glucose 389 H* 06/18/19 06/18/19 06/18/19 03:05 05:54 06:17 Glucose 406 H* POC Glucose 407 H* 397 H* 06/18/19 06/18/19 06/18/19 06:19 07:16 08:16 Glucose POC Glucose 401 H* 363 H* 355 H* 06/18/19 06/18/19 06/18/19 09:17 10:19 11:16 Glucose POC Glucose 310 H* 241 H 170 H 06/18/19 06/18/19 11:47 11:52 Glucose 151 H POC Glucose 159 H Laboratory Data (last 24hrs): 06/17/19 06/18/19 06/18/19 22:32 01:52 05:54 Potassium 4.7 4.2 4.0 Carbon Dioxide 28 27 25 Anion Gap 8.0 6.0 8.0 Creatinine 2.90 H D 2.40 H D 2.30 H Est Cr Clr Drug Dosing 12.9 15.6 16.3 Beta-Hydroxybutyric Acd 2.56 2.13 1.39 06/18/19 11:52 Potassium 3.9 Carbon Dioxide 25 Anion Gap 6.0 Creatinine 2.00 H D Est Cr Clr Drug Dosing 18.7 Beta-Hydroxybutyric Acd HbA1c: Hemoglobin A1c 6.2 % (4.5-5.6) H 06/18/19 05:54 - Recent Pertinent Medications Outpatient Anti-diabetic Regimen: * Levemir 15 units * A1c = 6.2 % 06/18/19 The patient is currently receiving: * Insulin infusion started at 0430 Risk Factors for Insulin Resistance: * Infection: possible sepsis on Zosyn and daptomycin * Recent Surgery: hip surgery in early June * Diet: NPO - Assessment & Plan Assessment & Plan: ASSESSMENT: * Patient is an 83 y/o F with a PMH of well controlled T2DM who presents with AMS from SNF. She previously had a hip replacement earlier in June - now presents with AMS. Patient has hypernatremia and hyperglycemia on admission. * Insulin drip started this morning at 0430 at 1.4 units/hr. Once pharmacy consulted, Levemir 15 units SQ given. Patient is not unstable (no anion gap, bicarbonate WNL). Within 2 hours, insulin infusion instructed nursing to hold and reduce drip rate to 1.4 units/hr. Instructed nursing to stop insulin infusion. * Scale set up for tomorrow morning for Levemir. Weight-based stress of 2-3 Novolog ordered. Patient is NPO. PLAN FOR INPATIENT GLYCEMIC CONTROL: * Basal insulin * Levemir 15 units SQ x 1 then 10 units daily (unless BSG > 160 mg/dL then 15 units) * Bolus insulin * NovoLog per scale ACHS or Q6hrs while NPO * Goal Range: Low 140 mg/dL - High 180 mg/dL * Correction Factor: 35 mg/dL/unit * Nutritional / Prandial insulin per carb ratio of 1 unit per 12 grams CHO consumed Thank you.
[2019-06-18] MEDS ORDERED: MoRPHine SULFATE 2 MG/ML CARP IV PRN ×2 (16:09→16:50)
[2019-06-18 16:21] LABS: Hematocrit (blood only) 29.3 % (37-47); Hemoglobin 8.9 g/dL (12.0-16.0)
--- NOTE | 2019-06-18 16:29 | Hospitalist Progress Note ---
Date of Service June 18, 2019 Assessment & Plan (1) Encephalopathy: Delirium on dementia History paranoid schizophrenia as per records Multifactorial : Severe sepsis (SIRS plus ARF plus lactic acidosis plus encephalopathy) possibly secondary to postop infection, recent right hip fracture surgery Hypernatremia, ARF secondary to poor p.o. intake, illness Hyperglycemic crisis, unclear cause (hx DM 2 diet-controlled, well-controlled as of recent hemoglobin A1c of 5.2, May 2019) CAD/CVA as per records hypertension, BP on the lower side chronic anemia, hemoglobin better than baseline likely secondary to hemoconcentration chronic thrombocytopenia, platelets currently within normal limits likely secondary to hemoconcentration Medical telemetry Cultures, IV Daptomycin, Zosyn for now Follow official CT abdomen pelvis results Orthopedics consult RE possible postop infection N.p.o. for now in anticipation of procedure Half-normal NS, follow lactic acid Follow renal function, hold home diuretic for now Nephrology consult RE hypernatremia IV insulin, recheck hemoglobin A1c DVT prophylaxis. Heparin subcu DNR as per daughter/POA, . Jalyn Hernandez. She requests updates from providers thru [id number]. Subjective Patient is seen and examined at bedside Review of Systems Review of Systems: All systems reviewed & are unremarkable except as noted in HPI & below Results & Data Vital Signs (Past 12 Hours) Vital Signs Temp Pulse Pulse Resp BP BP Pulse Ox 06/18/19 15:55 114 H 06/18/19 14:55 106 H 30 H 154/69 H 98 06/18/19 11:07 36.7 C 107 H 32 H 106/65 96 06/18/19 07:20 36.5 C 83 16 136/67 91 06/18/19 04:36 36.7 C 97 H 20 92/50 L 100 Laboratory Results Short CBC 06/17/19 06/18/19 06/18/19 Range/Units 22:32 06:02 15:58 WBC 23.46 H 17.24 H (4.8-10.8) K/uL Hgb 10.9 L 8.4 L 8.9 L (12.0-16.0) g/dL Hct 35.6 L 28.0 L 29.3 L (37-47) % Plt Count 172 125 L (130-400) K/uL BMP 06/17/19 06/18/19 06/18/19 22:32 01:52 05:54 Sodium 167 H* 165 H* 164 H* Potassium 4.7 4.2 4.0 Chloride 131 H 133 H 131 H Carbon Dioxide 28 27 25 BUN 112 H 103 H 99 H Creatinine 2.90 H D 2.40 H D 2.30 H Glucose 431 H* 418 H* 406 H* Calcium 8.9 7.4 L D 7.9 L 06/18/19 11:52 Sodium 162 H* Potassium 3.9 Chloride 132 H Carbon Dioxide 25 BUN 95 H Creatinine 2.00 H D Glucose 151 H Calcium 8.3 L Cardiac Enzymes 06/17/19 Range/Units 22:32 Troponin I 0.160 H* (0-0.045) ng/ml Liver Function 06/17/19 Range/Units 22:32 Total Bilirubin 0.9 (0.2-1) mg/dl AST 40 H (15-37) U/L ALT 36 (12-78) U/L Alkaline Phosphatase 100 (45-117) U/L Albumin 2.4 L (3.4-5.0) gm/dl Urine 06/17/19 Range/Units 22:46 Urine Color Dark Yellow Urine Appearance Clear (Clear) Urine pH 5.0 (4.5-7.5) Ur Specific [place] 1.023 (1.000-1.030) Urine Protein Negative (Negative) Urine Glucose (UA) 1+ H (Negative)
[2019-06-18 16:50] LABS: BUN Creatinine Ratio 46.6 (10-20); Calcium 7.9 mg/dl (8.5-10.1); Creatinine Clr Calc Pharmacy 19.8 ml/min; Est GFR (African American) 28.1; Est GFR (Non-African American) 24.3; Potassium 3.7 mmol/L (3.5-5.1)
--- NOTE | 2019-06-18 17:12 | Discharge Summary ---
Date of Service June 18, 2019 Admission HPI Per Admitting Provider History obtained from family, and records. Limited history from patient secondary to dementia. Medical history significant for dementia, schizophrenia, CAD/CVA as per records, hypertension, hyperlipidemia, DM 2 diet-controlled, chronic anemia (baseline hemoglobin of 10), chronic thrombocytopenia, recent hip fracture right status post surgery currently on Xarelto for DVT prophylaxis. Recent confinement June 07 to June 12, 2019 for right hip fracture secondary to mechanical fall status post surgery. E. coli UTI found during confinement status post antibiotic Rx. Patient discharged back to [facility] on Xarelto for postop DVT prophylaxis. Patient not eating too well upon return to [facility] as per daughter. Outpatient serum sodium noted to be gradually increasing since discharge from 149 (06/13) to 167 (06/17). Outpatient serum creatinine noted to be 2.12 with outpatient blood work yesterday from normal baseline. NSS, IV ceftriaxone started at [facility]. Patient brought to the ER for increased agitation, O2 sats noted to be 70s on room air at [facility]. SBP noted to be 80s upon arrival at the ER. O2 sats 95 on room air. At the ER, patient received Vancomycin and Zosyn for sepsis. Medical History as above Surgical History : Right hip surgery Family History : Could not be obtained Personal/Social history : skilled nursing resident Admission Exam Per Admitting Provider GENERAL: Demented, uncomfortable, no respiratory distress SKIN: Pallor , warm HEENT: Pale palpebral conjunctivae, no ptosis, dry buccal mucosa, nasal cannula in place NECK : Supple, no tenderness CHEST : Decreased effort , no tenderness HEART : Tachycardic , no obvious murmurs ABDOMEN: Some distention, nontender EXTREMITIES : Dressing over right hip, minimal right hip tenderness, no other conspicuous deformities noted NEUROLOGIC : Demented, no facial asymmetry, no other gross focality Principal Diagnosis Hypernatremia Acute kidney injury Encephalopathy Intramuscular hematoma Discharge Data Allergies Allergy/AdvReac Type Severity Reaction Status Date / Time barium sulfate Allergy unknown Verified 06/17/19 22:09 benztropine Allergy unknown Verified 06/17/19 22:09 chlorpromazine Allergy unknown Verified 06/17/19 22:09 clozapine Allergy unknown Verified 06/17/19 22:09 diatrizoate meglumine Allergy Unknown Verified 06/17/19 22:09 diatrizoate sodium Allergy unknown Verified 06/17/19 22:09 gadodiamide Allergy unknown Verified 06/17/19 22:09 iodine Allergy unknown Verified 06/17/19 22:09 iodixanol Allergy unknown Verified 06/17/19 22:09 sulfamethoxazole Allergy Unknown Verified 06/17/19 22:09 [From Bactrim] trimethoprim [From Bactrim] Allergy Unknown Verified 06/17/19 22:09 Consultations 06/17/19 23:23 ED Decision to Admit Stat 06/18/19 01:27 Consult Orthopedic Surgery Routine 06/18/19 03:05 Consult Nephrology Routine 06/18/19 09:28 Consult Palliative Care Routine Ordered Studies 06/17/19 23:41 CT abd pelvis wo con Urgent CT head/brain wo con Urgent Hospital Course (1) Encephalopathy: PER H&P Delirium on dementia History paranoid schizophrenia as per records Multifactorial : Severe sepsis (SIRS plus ARF plus lactic acidosis plus encephalopathy) possibly secondary to postop infection, recent right hip fracture surgery Hypernatremia, ARF secondary to poor p.o. intake, illness Hyperglycemic crisis, unclear cause (hx DM 2 diet-controlled, well-controlled as of recent hemoglobin A1c of 5.2, May 2019) CAD/CVA as per records hypertension, BP on the lower side chronic anemia, hemoglobin better than baseline likely secondary to hemoconcentration chronic thrombocytopenia, platelets currently within normal limits likely secondary to hemoconcentration Medical telemetry Cultures, IV Daptomycin, Zosyn for now Follow official CT abdomen pelvis results Orthopedics consult RE possible postop infection N.p.o. for now in anticipation of procedure Half-normal NS, follow lactic acid Follow renal function, hold home diuretic for now Nephrology consult RE hypernatremia IV insulin, recheck hemoglobin A1c DVT prophylaxis. Heparin subcu DNR as per daughter/POA, Ms. Jalyn Hernandez. She requests updates from providers thru [id number]. Hospital Course Patient remained obtunded during the hospital course. She rapidly declined and was noted to be in severe respiratory distress. Chest x-ray showed minimal interstitial infiltrate versus atelectasis left base. Lungs were otherwise clear. She was found to be tachycardic, tachypneic requiring supplemental oxygen to maintain saturations. She was started on broad-spectrum IV antibiotics for possible infection. Received IV fluids for correction of hypernatremia, acute kidney injury. Nephrology was consulted. Patient was noted to have intramuscular hematoma of right hip. Orthopedics evaluated the patient. Anticoagulation was held due to intramuscular hematoma and drop in hemoglobin. No obvious source of infection was found. Lactate levels normalized with IV fluids. Blood cultures were pending. YFN slightly improved with IV fluids. Patient is uremic with high BUN. In setting of advanced dementia, paranoid schizophrenia and encephalopathy; patient remained obtunded--it was difficult to get any history. Given rapid decline clinically, palliative care was consulted to address goals of care. Patient is DNI/DNR status since admission. Patient at 1700. Family was updated. Total Time Total Time Spent Total Time Spent (In Minutes): 28 minutes Discharge Plan Discharge Items Patient Disposition: Reason For Visit: ENCEPHALOPATHY Discharge Diagnosis: Hypernatremia Acute kidney injury Encephalopathy Intramuscular hematoma Follow-up/Referrals: Carlee Waterman [Primary Care Provider] - Lewis Attending Provider Instructions: Patient's family was updated Admission Data Admit Date/Time: 06/18/19 01:02
[2019-06-18] MEDS ORDERED: DAPTOmycin 225 MG in SYRINGE 0 ML IV SCH (22:00)
[2019-06-19] MEDS ORDERED: INSULIN DETEMIR FLEXPEN/FLEX TOUCH 100 UNITS/ML 3ML SC SCH (09:00)
--- NOTE | 2019-07-23 07:15 | Coding Query ---
CODING QUERY To promote full compliance with coding requirements relating to patient care, provider participation is requested in all cases of auto body worker uncertainty. Please assist us with the question(s) below: Coding Question(s): Patient status post hip surgery admitted with Sepsis. Discharge Summary documents severe sepsis possibly secondary to postoperative infection. Please document, if known or suspected the etiology of the Sepsis , present on admission. Thanks for your help! Darron Ford [facility] Physician's Response(s): Unsure if patient had sepsis as no obvious source of infection was identified. Principal Diagnosis: "that condition established after study, to be chiefly responsible for occasioning the admission of the patient to the hospital for care." Co-Existing Principal Diagnosis: "when two or more diagnoses equally meet the criteria for principal diagnosis as determined by the circumstances of admission, diagnostic work up, and/or therapy provided, and the Alphabetic Index, Tabular List, or another coding guideline does not provide sequencing direction, any one of the diagnoses may be sequenced first." "When the physician has documented what appears to be a current diagnosis in the body of the record, but has not included the diagnosis in the final diagnostic statement, the physician should be asked whether the diagnosis should be added." (Source Coding Clinic 2 QTR90. p3-4) DOM
== END 2019-06-18 18:00 | disposition expired | DRG 683 ==
LOC: ED 21:40 → 2W 06-18 01:02